=== PATIENT | female | born 1935 | race Caucasian/White ===

== ENCOUNTER 2017-08-08 09:23 | Emergency (ER) | payer MEDICARE, OTHER ==
[2016-12-15 14:54] VITALS: Ht 165.1 cm; Wt 61.7 kg
[~2017-08-08] VITALS: Ht 165.1 cm; Wt 61.7 kg
[~2017-08-08 09:23] MED LIST changes: -ABILIF5PT PO; -ACET-1966 PO; -ASPI81TA86 PO; -CEFU500T10 PO; -CYCL-277 PO; -METO25TA93 PO; -OMEP40CA48 PO; -SUMA50TA35 PO
[2017-08-08] MEDS ORDERED: NS(*) 0.9% 500 ML BAG 500 ML IV ONE (09:33)
[2017-08-08] MEDS ORDERED: NS(*) 0.9% 1000 ML BAG 1,000 ML IV ONE (09:33)
[2017-08-08] MEDS ORDERED: DILTIAZEM 5 MG/ML 5ML IVPUSH IVP ONE (09:35)
[2017-08-08] MEDS ORDERED: ASPIRIN 81 MG CHEW PO ONE (09:35)
[2017-08-08] MEDS ORDERED: ONDANSETRON 4 MG/2 ML VIAL IVP ONE (09:35)
[2017-08-08] MEDS ORDERED: ADENOSINE IV SOLN 3 MG/ML SYR IVP ONE ×2 (09:35)
--- NOTE | 2017-08-08 09:45 | ER Report ---
History and Physical Time Seen By MD: 09:12 HPI/ROS CC: Malaise with nausea HPI: 82-year-old female with past medical history of COPD, transient atrial fibrillation, mitral valve murmur secondary to rheumatic fever, intertrochanteric fracture right femur bronchitis, hip fracture, most UTIs. Patient comes to the emergency Department per EMS essentially a history of malaise. She has been exposed to influenza in her household. She is very pale and weak. His nauseated but no emesis. Generalized discomfort level is an 8 out of 10. She denies any chest pain chest pressure, shortness of breath no diaphoresis or palpitations. Activity makes it worse rest makes it better. Malaise is constant. While in the room patient went into SVT at V. tach it was hard to tell on the monitor. Patient received adenosine and converted to atrial fibrillation with RVR at a rate of 109. Patient was given Cardizem 20 mg IV. ROS: 12 point review of systems essentially negative other than what's mentioned in history of present illness. NURSES AND OLD MEDICAL RECORDS: Reviewed PMH: Reviewed SURGICAL HX: Reviewed FAMILY HX: Noncontributory SOCIAL HX: Patient denies smoking alcohol or illicit drugs. She was a home. VITAL SIGNS: Reviewed CONSTITUTIONAL: 82-year-old female in moderate to severe distress. PHYSICAL EXAM: HEENT: Pupils equal round reactive to light and accommodate, EOMI, tympanic membranes pearly white umbo present with good light reflex. Lips dry mucous membranes moist gums nonbleeding uvula midline and rises equally with phonation, oropharynx noninjected, teeth intact. NECK: Neck supple, thyroid not appreciated, anterior and posterior cervical lymphadenopathy not appreciated. Trachea midline and rises equally with phonation. CARDIAC: S1-S2 sixths systolic murmur 2nd intercostal space a sternal border decrescendo , irregularly irregular and tachycardic, no rubs or gallops. LUNGS: Lungs clear bilaterally posteriorly in all acuna. Decreased air movement. ABDOMEN: Abdomen soft, nondistended, bowel sounds active in all 4 quadrants, no bruits noted, no CVA tenderness. MUSCULOSKELETAL: Strength 5 out of 5 x 4 extremities, no deformities noted. NEUROLOGIC: Patient alert and oriented by 3 Allergies: Coded Allergies: propoxyphene (Verified Allergy, Mild, vomiting, 08/08/17) oxycodone (Verified Allergy, Unknown, 08/08/17) Uncoded Allergies: CLEANSERS (Allergy, Mild, 11/24/07) HAYFEVER (Allergy, Mild, UNKNOWN, 01/01/12) PERFUME (Allergy, Unknown, 03/09/14) Home Meds Active Scripts Ondansetron (ZOFRAN ODT) 4 Mg Tab.rapdis, 4 MG PO Q4-6H Y for NAUSEA/VOMITING, # 10 Prov:SHAWNEE SALINAS DO 03/25/17 Melatonin (MELATONIN) 5 Mg Tablet, 5 MG PO HS, #30 TAB Prov:VENTURA BARILLAS MD 04/03/16 Reported Medications Colestipol Hcl (COLESTIPOL HCL) 1 Gm Tablet, 1 GM PO PRN 12/15/16 Cyanocobalamin (Vitamin B-12) (Vitamin B12) 2,500 Mcg Tablet, 1 TAB PO QAM 12/14/16 Multivitamin (MULTIVITAMINS) 1 Each Tablet, 1 EACH PO DAILY 03/25/16 Fluticasone Prop 50 Mcg Ns (FLONASE 50 MCG NS) 16 Gm [place].susp, 2 SPRAYS NS QDAY for 30 Days, BOT 03/25/16 Flecainide Acetate (FLECAINIDE ACETATE) 100 Mg Tab, 100 MG PO QDAY for 30 Days, TAB 03/25/16 Alprazolam 0.5 Mg Tab (ALPRAZOLAM 0.5 MG TAB) 0.5 Mg Tablet, 0.5 MG PO QHS Y for ANXIETY for 30 Days, TAB 03/25/16 Amlodipine Besylate (AMLODIPINE BESYLATE) 5 Mg Tablet, 1 TAB PO DAILY, #30 03/25/16 Lisinopril (LISINOPRIL) 20 Mg Tablet, 1 TAB PO DAILY, #90 03/25/16 Cholecalciferol (Vitamin D3) (VITAMIN D3) 1,000 Unit Capsule, 5000 UNIT PO QAM, CAPSULE 10/19/14 Trazodone Hcl (TRAZODONE HCL) 100 Mg Tablet, 100 MG PO QPM 10/19/14 Quetiapine Fumarate (SEROQUEL) 50 Mg Tablet, 50 MG PO QPM 10/19/14 Discontinued Reported Medications Ranitidine Hcl (ZANTAC) 150 Mg Tablet, 150 MG PO DAILY, TAB 03/25/16 Hx Smoking: No Smoking Status: Never Smoker Exposure to Second Hand Smoke?: No Hx Substance Use Disorder: No Hx Alcohol Use: No Constitutional Vital Sign - Last 24 Hours 08/08/17 09:48 Temp 98.3 Pulse 140 Resp 22 Pulse Ox 84 O2 Delivery Room Air Medical Decision Making Data Points Result Diagram: 08/08/1755 08/08/17 0955 Laboratory Hematology Test 08/08/17 09:55 08/08/17 10:34 Red Blood Count 5.29 M/uL (4.17-5.56) Mean Corpuscular Volume 88.9 fL (80.0-96.0) Mean Corpuscular Hemoglobin 30.0 pg (26.0-33.0) Mean Corpuscular Hemoglobin Concent 33.8 g/dL (32.0-36.0) Red Cell Distribution Width 15.1 % (11.5-14.5) Mean Platelet Volume 7.1 fL (7.2-11.1) Neutrophils (%) (Auto) 81.5 % (39.4-72.5) Lymphocytes (%) (Auto) 10.2 % (17.6-49.6) Monocytes (%) (Auto) 7.5 % (4.1-12.4) Eosinophils (%) (Auto) 0.0 % (0.4-6.7) Basophils (%) (Auto) 0.8 % (0.3-1.4) Nucleated RBC Relative Count (auto) 0.0 /100WBC Neutrophils # (Auto) 7.5 K/uL (2.0-7.4) Lymphocytes # (Auto) 0.9 K/uL (1.3-3.6) Monocytes # (Auto) 0.7 K/uL (0.3-1.0) Eosinophils # (Auto) 0.0 K/uL (0.0-0.5) Basophils # (Auto) 0.1 K/uL (0.0-0.1) Nucleated RBC Absolute Count (auto) 0.00 K/uL Prothrombin Time 15.4 seconds (12.0-14.4) Prothromb Time International Ratio 1.21 Activated Partial Thromboplast Time 30 seconds (23-35) D-Dimer Quantitative (PE/DVT) 1.66 ug/ml (0-0.50) Sodium Level 138 mmol/L (137-145) Potassium Level 2.8 mmol/L (3.5-5.0) Chloride Level 97 mmol/L (98-107) Carbon Dioxide Level 22 mmol/L (22-31) Blood Urea Nitrogen 19 mg/dl (7-18) Creatinine 1.20 mg/dl (0.52-1.04) Glomerular Filtration Rate Calc 43.2 Random Glucose 146 mg/dl (75-110) Calcium Level 8.8 mg/dl (8.4-10.2) Magnesium Level 1.6 mg/dl (1.7-2.2) Total Bilirubin 0.8 mg/dl (0.2-1.3) Aspartate Amino Transf (AST/SGOT) 49 U/L (0-35) Alanine Aminotransferase (ALT/SGPT) 33 U/L (0-56) Alkaline Phosphatase 118 U/L (0-126) Troponin I 0.106 ng/ml B-Type Natriuretic Peptide 1250 pg/ml (0-100) Total Protein 7.6 gm/dl (6.3-8.2) Albumin 4.0 g/dl (3.5-5.0) Influenza Type A Antigen Negative (NEGATIVE) Influenza Type B Antigen Positive (NEGATIVE) Chemistry Test 08/08/17 09:55 08/08/17 10:34 White Blood Count 9.2 k/uL (4.5-11.0) Red Blood Count 5.29 M/uL (4.17-5.56) Hemoglobin 15.9 g/dL (12.0-16.0) Hematocrit 47.0 % (34.0-47.0) Mean Corpuscular Volume 88.9 fL (80.0-96.0) Mean Corpuscular Hemoglobin 30.0 pg (26.0-33.0) Mean Corpuscular Hemoglobin Concent 33.8 g/dL (32.0-36.0) Red Cell Distribution Width 15.1 % (11.5-14.5) Platelet Count 336 K/uL (150-450) Mean Platelet Volume 7.1 fL (7.2-11.1) Neutrophils (%) (Auto) 81.5 % (39.4-72.5) Lymphocytes (%) (Auto) 10.2 % (17.6-49.6) Monocytes (%) (Auto) 7.5 % (4.1-12.4) Eosinophils (%) (Auto) 0.0 % (0.4-6.7) Basophils (%) (Auto) 0.8 % (0.3-1.4) Nucleated RBC Relative Count (auto) 0.0 /100WBC Neutrophils # (Auto) 7.5 K/uL (2.0-7.4) Lymphocytes # (Auto) 0.9 K/uL (1.3-3.6) Monocytes # (Auto) 0.7 K/uL (0.3-1.0) Eosinophils # (Auto) 0.0 K/uL (0.0-0.5) Basophils # (Auto) 0.1 K/uL (0.0-0.1) Nucleated RBC Absolute Count (auto) 0.00 K/uL Prothrombin Time 15.4 seconds (12.0-14.4) Prothromb Time International Ratio 1.21 Activated Partial Thromboplast Time 30 seconds (23-35) D-Dimer Quantitative (PE/DVT) 1.66 ug/ml (0-0.50) Glomerular Filtration Rate Calc 43.2 Calcium Level 8.8 mg/dl (8.4-10.2) Magnesium Level 1.6 mg/dl (1.7-2.2) Total Bilirubin 0.8 mg/dl (0.2-1.3) Aspartate Amino Transf (AST/SGOT) 49 U/L (0-35) Alanine Aminotransferase (ALT/SGPT) 33 U/L (0-56) Alkaline Phosphatase 118 U/L (0-126) Troponin I 0.106 ng/ml B-Type Natriuretic Peptide 1250 pg/ml (0-100) Total Protein 7.6 gm/dl (6.3-8.2) Albumin 4.0 g/dl (3.5-5.0) Influenza Type A Antigen Negative (NEGATIVE) Influenza Type B Antigen Positive (NEGATIVE) Coagulation Test 08/08/17 09:55 Prothrombin Time 15.4 seconds Prothromb Time International Ratio 1.21 Activated Partial Thromboplast Time 30 seconds D-Dimer Quantitative (PE/DVT) 1.66 ug/ml EKG/Imaging EKG Interpretation 0931: Atrial fibrillation with RVR, left axis deviation, RSR or QR pattern in V1 possible right ventricular conduction delay. Ventricular rate 109 bpm,. Interval non-measurable, QRS duration 72 ms, QT 320 ms, QTc is 440 ms. Previous ECG shows sinus tachycardia with PACs left atrial enlargement R-wave progression ventricular rate 103 bpm, DC interval 180 ms, QRS duration 86 ms, QT 354 ms, QTC 463 ms. From 03/25/2017. Imaging Chest x-ray: IMPRESSION: 1. Patchy airspace consolidation now seen in the periphery of the right mid to upper lung field. This could represent an acute infiltrate given the clinical history however short-term interval follow-up imaging recommended to assure complete clearing. ED Course/Re-evaluation ED Course Patient received adenosine 6 mg followed by 12 mg. Patient into atrial fibrillation with RVR. Patient then received Cardizem 20 mg IV. Patient then has atrial fibrillation with RVR at a rate of 109. Patient received 2 g of magnesium IV piggyback. Patient received Zofran for her nausea. Labs been drawn. Chest x-ray showed a pneumonia. Patient received Zosyn. All labs have not yet been returned unknown if other area of infection i.e. when necessary therefore Zosyn was given as a broad-spectrum antibiotic. Potassium 2.840 mEq of [place] by mouth given. 1014: I then talked to the sloop captain at [facility] as the patient's sloop captain is at [facility]. Report given as above in history of present illness to Dr. Grant. 1020: Discussed the case with the hospitalist Dr. Marinelli. The bathing rather not accept her due to bed status. 1034: Dr. Adam, hospitalist at [facility] returned call. Report given as above in history of present illness and ED course. She accepts patient. Patient will be transferred to [facility]. It is not an option and patient is stable at this time. Blood pressure is 122/74, pulse 110, atrial fibrillation with RVR. 1048: Just before transfer patient's d-dimer came back as 1.6. We will receive Lovenox for anticipated pulmonary embolus and elevated troponin. This may be the cause of atrial fibrillation with RVR. Patient will be sent to the CT suite for PE protocol. 1115: Patient with influenza B. 1125: Patient just returned from CT suite. Patient be transferred to [facility]. Re-evaluation Medical decision-making includes but not excluded to fibrillation with RVR secondary to sepsis, urinary tract infection, pneumonia. Decision to Disposition Date: Aug 08, 2017 Decision to Disposition Time: 10:38 Depart Departure Latest Vital Signs Vital Signs Date Time Temp Pulse Resp B/P (MAP) Pulse Ox O2 Delivery O2 Flow Rate FiO2 08/08/17 09:48 98.3 140 22 84 Room Air Impression: Primary Impression: Pneumonia Additional Impression: Atrial fibrillation with RVR Condition: Improved Disposition: XFER TO [facility] Referrals: KATHLEEN JULES (PCP) Problem Qualifiers Primary Impression: Pneumonia Pneumonia type: due to unspecified organism Laterality: right Lung location : middle lobe of lung Qualified Codes: J18.1 - Lobar pneumonia, unspecified organism ANGELIQUE MILES MD Aug 08, 2017 09:45
--- NOTE | 2017-08-08 09:50 | EKG ---
[place]AC[place] [facility] [place] NAME: TREVOR OMRIN : [id number] MR: [id number] V: [id number] EXAM DATE: ORDERING PHYSICIAN: ANGELIQUE MLIES TECHNOLOGIST: Kalyan Test Reason : VTACH Blood Pressure : / mmHG Vent. Rate : 109 BPM Atrial Rate : 150 BPM P-R Int : 000 ms QRS Dur : 072 ms QT Int : 320 ms P-R-T Axes : 000 -43 037 degrees QTc Int : 430 ms Poor data quality, interpretation may be adversely affected Atrial fibrillation with rapid ventricular response with premature ventricular or aberrantly conducte d complexes Left axis deviation RSR' or QR pattern in V1 suggests right ventricular conduction delay Nonspecific ST abnormality , probably digitalis effect Abnormal ECG No previous ECGs available Confirmed by INNA STAUFFER ([id number]) on 08/08/2017 11:25:45 AM Referred By: Confirmed By:INNA STAUFFER
[2017-08-08] MEDS ORDERED: MAGNESIUM SUL* 2 GM/50 ML IVPB 50 ML IVPB ONE (10:00)
[2017-08-08 10:08] LABS: PLATELET COUNT, AUTOMATED 336 K/uL (150-450)
--- NOTE | 2017-08-08 10:18 | RADIOLOGY IMAGING REPORT ---
[place]AC[place] [facility] [place] NAME: Meri Velazquez : 1935 MR: [id number] V: [id number] EXAM DATE: ORDERING PHYSICIAN: ANGELIQUE MILES TECHNOLOGIST: Location: [facility] [place] Patient: Meri Velazquez : 1935 Visit/Account:[id number] Date of Sevice: 08/08/2017 Exam type: CHEST SINGLE AP History: Chest Pain Comparison: March 25, 2017. Findings: There is now a patchy area of dense airspace consolidation in the periphery of the right mid to upper lung field. The left lung is well aerated. There is no evidence of pleural effusions or overt pulm onary edema. Hilar prominence appears similar to the prior study. The cardiac silhouette appears mi ldly enlarged but unchanged. IMPRESSION: 1. Patchy airspace consolidation now seen in the periphery of the right mid to upper lung field. Th is could represent an acute infiltrate given the clinical history however short-term interval follow- up imaging recommended to assure complete clearing. There is hilar prominence bilaterally although similar to the prior study. Mild cardiomegaly unchanged Report Dictated By: Virginia Richter MD at 08/08/2017 10:10 AM Report E-Signed By: Virginia Richter MD at 08/08/2017 10:13 AM WSN:[email or web address]
[2017-08-08 10:20] LABS: INR 1.21
[2017-08-08] MEDS ORDERED: POTASSIUM CHL 20 MEQ TABCR PO ONE (10:20)
[2017-08-08] MEDS ORDERED: PIPERACILLIN/TAZO*3.375GM VIAL 3.375 GM in NS(*) 0.9% 100 ML ADDVANT BAG 100 ML IVPB ONE (10:30)
[2017-08-08] MEDS ORDERED: ENOXAPARIN 100 MG/ML SYR SC SCH (11:00)
[2017-08-08 11:05] VITALS: BP 112/71
[2017-08-08] MEDS ORDERED: NS 0.9% 50 ML VIAL 50 ML ONE ×2 (11:07)
[2017-08-08] MEDS ORDERED: IOPAMIDOL 76% 75 ML INFUS BTL 75 ML ONE (11:07)
--- NOTE | 2017-08-08 11:56 | RADIOLOGY IMAGING REPORT ---
FACILITY: [facility] PATIENT NAME: Meri Velazquez : 1935 MR: [id number] V: [id number] EXAM DATE: ORDERING PHYSICIAN: ANGELIQUE MILES TECHNOLOGIST: Location[place] [facility] [place] Patient: Meri Velazquez : 1935 Visit/Account:[id number] Date of Sevice: 08/08/2017 CTA CHEST WW/O CNTR (PULM ANG) HISTORY: cp ADDITIONAL HISTORY: None. TECHNIQUE: CTA chest with intravenous contrast. Axial imaging acquired following administration of IV contrast timed for maximum opacification of the pulmonary arterial vasculature. Slab 3-D MIP john nstructed images were also created for further evaluation and interpretation. Reconstruction of the s [facility] data set includes multiplanar 2-D in the sagittal and coronal planes and 3-D reconstructed marya nal slab MIP series. 3-D images were created by the technologist. Dose Lowering Technique One of the following dose optimization techniques was utilized in the performance of this exam: Autom ated exposure control; adjustment of the mA and/or kV according to the patient's size; or use of an i terative reconstruction technique. Specific details can be referenced in the facility's radiology C T exam operational policy. CONTRAST: 75 mL Isovue-370 COMPARISON: CT chest July 09, 2011 FINDINGS: Lungs/pleura: There is now dense airspace consolidation with air bronchograms irregular margins in t he posterior lateral aspect of the right upper lobe. There is a 4 mm nodule just anterior and inferi or to this consolidation best seen on image 45 of series 5. Chronic linear scarring versus atelectasis in the posterior inferior lingula appears unchanged.. Chr onic wedge-shaped consolidation in the medial inferior right middle lobe appears unchanged. Heart/vessels: There is no evidence of pulmonary emboli. There is mild aneurysmal dilatation of the ascending thoracic aorta measuring 4.2 cm in AP dimension and is increased when compared the prior s tudy. This mild aneurysmal dilatation of the descending thoracic aorta measuring up to 3.1 cm also s lightly increased. There is prominence of the central pulmonary arteries which can be seen with pulm onary arterial hypertension. There are coronary artery calcifications Mediastinum/lymph nodes: There are enlarged pretracheal lymph nodes not present previously. A repre sentative lymph node measures 1.9 x 1.3 cm. Visualized upper abdomen: Previous seen noted cyst in the dome of the liver has increased in size fr om 4.7 cm to 7.9 cm. Small peritoneal calcifications appear similar to the prior study Bones/soft tissues: There are spondylotic changes of the thoracic spine. Schmorl's nodes are noted at multiple levels Additional findings: None IMPRESSION: No evidence of pulmonary emboli. There is mild aneurysmal dilatation of the ascending and descending thoracic aorta slightly increased when compared the prior study Problem's of the central pulmonary arteries which can be seen with pulmonary arterial hypertension There is now an area of dense airspace consolidation with air bronchograms and irregular margins in t he posterior lateral aspect of the right upper lobe. There is a 4 mm nodule just anterior and inferi or to this consolidation. This could represent an infectious/inflammatory process although neoplasti c process should be excluded. Also noted is an enlarged pretracheal lymph node which was not present previously. There are chronic areas of scarring versus atelectasis in the right middle lobe and posterior inferio r lingula appearing similar to the prior study Previously noted cyst in the dome of the liver has increased in size from 4.7 cm to 7.9 cm Report Dictated By: Virginia Richter MD at 08/08/2017 11:36 AM Report E-Signed By: Virginia Richter MD at 08/08/2017 11:52 AM WSN:[email or web address]
[2017-08-08] MEDS ORDERED: LORazepam 2 MG/ML VIAL ONE (12:34)
== END 2017-08-08 12:40 | disposition short-term general hospital (02) ==
LOC: ER 09:25
DX: J18.1 Lobar pneumonia, unspecified organism (principal); I48.91 Unspecified atrial fibrillation; I47.2 Ventricular tachycardia; R07.89 Other chest pain
CPT/HCPCS: 36415; 71045; 71275; 83735; 83880; 84484; 85025; 85379; 85610; 85730; 87040; 87502; 93005; 96361; 96365; 96375; 99285; A9270; J0153; J1650; J2060; J2405; J2543; J3475; J3490; J7040; J7050; Q9967; 82040; 82247; 82310; 82374; 82435; 82565; 82947; 84075; 84132; 84155; 84295; 84450; 84460; 84520

== ENCOUNTER → 2017-08-08 | Outpatient (CLI) | payer MEDICARE, OTHER ==
[2016-12-15 14:54] VITALS: BMI 24.7
[~2017-08-08] MED LIST: ABILIF5PT PO; ACET-1966 PO; ALB17R INH; ALBU8.5H IH; ALP5 PO; ALPR-448 PO; ALPR-460 PO; AMLO-96 PO; ASPI-764 PO; ASPI81TA86 PO; AZIT-17 PO; B-12; BUTA1CAP36 PO; BUTA1CAP51 PO; CALC-649 PO; CEFU500T10 PO; CEPH-13 PO; CHOL100059 PO; CLAR-13 PO; CODE118S5 PO; COLE1TAB6 PO; CYAN1000 IM; CYAN25004 PO; CYCL-277 PO; DES100PT PO; DOCU-442 PO; DUL100/5PT INH; DULO30CA PO; DULO60CA51 PO; DULO60CA56 PO; DULO60CA7 PO; FLE100 PO; FLEC50TA16 PO; FLUT16SP19 NS; FLUT1DIS28 IH; GLUC-178 PO; HYDR-319 PO; IBU600 PO; LEV500 PO; LISI20TA29 PO; LOPE1LIQ49 PO; LOR5/325 PO; LOR7.5/325 PO; LOSA-54 PO; MELA1TAB15 PO; MELA5TAB6 PO; METHY10 PO; METO200T32 PO; METO25TA23 PO; METO25TA91 PO; METO25TA93 PO; METR70GE2 PV; MULT-820 PO; OLME1TAB51 PO; OMEP-218 PO; OMEP20CA68 PO; OMEP40CA48 PO; ONDA4TAB PO; OXYGENHOME INH; PHEN120S18 PO; POTA20PA10 PO; PRE20 PO; PRED20TA6 PO; PROM-110 PO; QUET50TA21 PO; RAN150 PO; RANI-324 PO; SUMA4PEN3 SQ; SUMA50TA34 PO; SUMA50TA35 PO; TEM15 PO; TRAZ-163 PO; TRAZ150T61 PO; TRAZ50 PO; WARF2.5T4 PO; [UNRECOGNIZED DRUG - CODE] PO; vitamins
== END ==
LOC: AMB 08:55
PROVIDERS: ATTEND Nurse Practitioner
DX: R53.1 Weakness (principal)
CPT/HCPCS: A0425; A0427

== ENCOUNTER → 2017-08-08 | Outpatient (CLI) | payer MEDICARE, OTHER ==
[2016-12-15 14:54] VITALS: BMI 24.7
== END ==
LOC: AMB 12:20
PROVIDERS: ATTEND Nurse Practitioner
DX: R53.1 Weakness (principal); I48.91 Unspecified atrial fibrillation; R79.89 Other specified abnormal findings of blood chemistry
CPT/HCPCS: A0425; A0426; A0888

== ENCOUNTER 2017-08-14 07:43 | Inpatient (IN) | payer MEDICARE, OTHER ==
[2016-12-15 14:54] VITALS: Ht 165.1 cm; Wt 64.9 kg
[~2017-08-14] VITALS: Ht 165.1 cm; Wt 64.9 kg
[2017-08-14 10:00] VITALS: BP 125/78
--- NOTE | 2017-08-14 10:35 | History & Physical ---
History of Present Illness Chief Complaint Weakness, need for rehabilitation. History of Present Illness The patient is an 82 year old female who presented to [facility] ER on 08/08. She was found to have pneumonia, atrial fibrillation with RVR, and elevated troponin. She was transferred to [facility] for further evaluation and treatment. She was found to have influenza B as well. She had severe hypokalemia/magnesemia. She had metabolic encephalopathy with severe hallucinations and confusion. She developed L greater trochanteric bursitis. Her troponin was elevated but felt to be non-NM troponin elevation due to her acute illness and a fib with RVR. She had an elevated d-dimer which was not evaluated as she was started on anticoagulation for the a fib. She improved with treatment of the above issues. She converted to NSR. She had generalized weakness and it was recommended to have ongoing rehabilitation. She was sent to a SNF in [place] initially, but the family preferred to have her in [place] at [facility] once a bed was available so she has been transferred to [facility] for ongoing rehabilitation. She is also completing a course of Ceftin 500mg bid for her pneumonia. History Problems: (1) PAROXYSMAL ATRIAL FIBRILLATION Status: Chronic (2) HTN (hypertension) Status: Chronic (3) Heart murmur after rheumatic heart disease Status: Chronic (4) History of femur fracture Status: Chronic (5) Cerebral meningioma Status: Chronic (6) Sleep apnea Status: Chronic (7) Depression Status: Chronic (8) Dyssomnia Status: Chronic (9) COPD (chronic obstructive pulmonary disease) Status: Chronic (10) Intertrochanteric fracture of right femur Status: Resolved (11) Diarrhea in adult patient Status: Chronic Home Meds Active Scripts Cefuroxime Axetil (CEFUROXIME) 500 Mg Tablet, 500 MG PO BID, #4 TAB Prov:VENTURA BARILLAS MD 08/14/17 Melatonin (MELATONIN) 5 Mg Tablet, 5 MG PO HS, #30 TAB Prov:VENTURA BARILLAS MD 04/03/16 Reported Medications Sumatriptan Succinate (SUMATRIPTAN SUCCINATE) 50 Mg Tablet, 50 MG PO ONCE Y for HEADACHE, #5 TAB May repeat dose 1 time after 2 hours if needed. Do not exceed 200mg in 24 hours. 08/14/17 Omeprazole (OMEPRAZOLE) 40 Mg Capsule.dr, 40 MG PO QDAY, CAP 08/14/17 Aripiprazole (ABILIFY) 5 Mg Tablet, 5 MG PO QDAY, #10 TAB 08/14/17 Cyclobenzaprine Hcl (CYCLOBENZAPRINE HCL) 5 Mg Tablet, 5-10 MG PO TID Y for SPASMS, #9 TAB 08/14/17 Acetaminophen (TYLENOL) 325 Mg Tablet, 1-2 TAB PO Q6H for pain or fever, TAB 08/14/17 Aspirin (ASPIRIN EC) 81 Mg Tablet.dr, 81 MG PO QDAY, TAB 08/14/17 Metoprolol Tartrate (METOPROLOL TARTRATE) 25 Mg Tablet, 25 MG PO BID, TAB 08/14/17 Colestipol Hcl (COLESTIPOL HCL) 1 Gm Tablet, 1 GM PO HS for diarrhea 12/15/16 Cyanocobalamin (Vitamin B-12) (Vitamin B12) 2,500 Mcg Tablet, 1 TAB PO QAM 12/14/16 Multivitamin (MULTIVITAMINS) 1 Each Tablet, 1 EACH PO DAILY 03/25/16 Cholecalciferol (Vitamin D3) (VITAMIN D3) 1,000 Unit Capsule, 5000 UNIT PO QAM, CAPSULE 10/19/14 Trazodone Hcl (TRAZODONE HCL) 100 Mg Tablet, 100 MG PO QPM 10/19/14 Quetiapine Fumarate (SEROQUEL) 50 Mg Tablet, 50 MG PO QPM 10/19/14 Discontinued Reported Medications Fluticasone Prop 50 Mcg Ns (FLONASE 50 MCG NS) 16 Gm [place].susp, 2 SPRAYS NS QDAY for 30 Days, BOT 03/25/16 Flecainide Acetate (FLECAINIDE ACETATE) 100 Mg Tab, 100 MG PO QDAY for 30 Days, TAB 03/25/16 Alprazolam 0.5 Mg Tab (ALPRAZOLAM 0.5 MG TAB) 0.5 Mg Tablet, 0.5 MG PO QHS Y for ANXIETY for 30 Days, TAB 03/25/16 Amlodipine Besylate (AMLODIPINE BESYLATE) 5 Mg Tablet, 1 TAB PO DAILY, #30 03/25/16 Lisinopril (LISINOPRIL) 20 Mg Tablet, 1 TAB PO DAILY, #90 03/25/16 Ranitidine Hcl (ZANTAC) 150 Mg Tablet, 150 MG PO DAILY, TAB 8/29/16 Discontinued Scripts Ondansetron (ZOFRAN ODT) 4 Mg Tab.rapdis, 4 MG PO Q4-6H Y for NAUSEA/VOMITING, # 10 Prov:SHAWNEE SALINAS DO 03/25/17 Allergies: Coded Allergies: propoxyphene (Verified Allergy, Mild, vomiting, 08/08/17) oxycodone (Verified Allergy, Unknown, 08/08/17) Uncoded Allergies: CLEANSERS (Allergy, Mild, 11/24/07) HAYFEVER (Allergy, Mild, UNKNOWN, 01/01/12) PERFUME (Allergy, Unknown, 03/09/14) Patient History: Colon cancer Other Social/Family Hx The patient is and lives in [place] with her . She is retired. Hx Smoking: No Smoking Status: Never Smoker Exposure to Second Hand Smoke?: No Caffeine Intake: Tea Caffeine/Cups Per Day: rarely Hx Alcohol Use: No Hx Substance Use Disorder: No Social Drug Use: Never History of IV Drug Use: No Review of Systems Constitutional: Weight Loss (Over several months due to poor appetite.), No Fever Neurological: Weakness Eyes: No Vision Change ENT: No Hearing Loss Cardiovascular: No Chest Pain Respiratory: No Shortness of Breath Gastrointestinal: Nausea (Initially with illness. Resolved now.) Genitourinary: No Dysuria Musculoskeletal: Pain (L greater trochanter. Has been improving.) Psychiatric: Depression Exam Vital Signs Vital Signs Date Time Temp Pulse Resp B/P (MAP) Pulse Ox O2 Delivery O2 Flow Rate FiO2 08/14/17 09:57 93 Nasal Cannula 3.0 General Appearance: Alert, Awake, No Acute Distress, Afebrile Neuro: No Gross deficits Eyes: PERRLA Cardiovascular: Regular Rate and Rhythm Respiratory: Clear to Auscultation GI: Abd Soft and Non-Tender Extremities: Warm, Perfused, Other (No edema.) Integumentary: Generalized Fragile Skin Psych: Appropriate Mood & Affect Assessment and Plan Problems: (1) INFLUENZA DUE TO OTH IDENT INFLUENZA VIRUS W OTH PNEUMONIA Status: Acute Assessment & Plan: She completed a course of Tamiflu at [facility]. Will continue Ceftin 500mg bid to complete a 10 day course of antibiotic. Will order a CBC. (2) PAROXYSMAL ATRIAL FIBRILLATION Status: Chronic Assessment & Plan: She has converted to NSR. Continue metoprolol and warfarin. Daily INR ordered. (3) Elevated d-dimer Status: Acute Assessment & Plan: No evaluation done. Started on warfarin for a fib. [place] to be due to acute illness/pneumonia. (4) Elevated troponin Status: Acute Assessment & Plan: [place] to be be non-NM troponin elevation due to issues described above. (5) Hypokalemia Status: Acute Assessment & Plan: Resolved. Will check a potassium and magnesium level. (6) Hypomagnesemia Status: Acute Assessment & Plan: See above. (7) HTN (hypertension) Status: Chronic Assessment & Plan: On metoprolol tartrate 25mg bid for BP and a fib. Lisinopril and amlodipine stopped. Watch blood pressures and restart if needed. (8) Greater trochanteric bursitis of left hip Status: Acute Assessment & Plan: She has been taking Tylenol and using [place] with good result. (9) Acute metabolic encephalopathy Status: Acute Assessment & Plan: Resolved. Due to acute illness. Time Spent on Plan of Care: < 30 min Copies to: KATHLEEN JULES MOLASSES COLORING OPERATOR Venous Thromboembolism VTE Risk Physician Assess for VTE Risk: Yes Patient's VTE Risk: Low VTE Diagnostic Test 2 Days Prior to Admit: No Antithrombotics Is Pt On Any Antithrombotics?: Yes (On warfarin.) VENTURA BARILLAS MD Aug 14, 2017 10:35
[2017-08-14] MEDS ORDERED: CYCLOBENZAPRINE HCL 10 MG TAB PO PRN (10:40)
[2017-08-14] MEDS ORDERED: METO25TA93 PO (10:57)
[2017-08-14] MEDS ORDERED: ACET-1966 PO (10:57)
[2017-08-14] MEDS ORDERED: ASPI81TA86 PO (10:57)
[2017-08-14] MEDS ORDERED: CEFU500T10 PO (10:57)
[2017-08-14] MEDS ORDERED: CYCL-277 PO (10:59)
[2017-08-14] MEDS ORDERED: ABILIF5PT PO (10:59)
[2017-08-14] MEDS ORDERED: OMEP40CA48 PO (11:00)
[2017-08-14] MEDS ORDERED: SUMA50TA35 PO (11:02)
[2017-08-14 11:04] LABS: PLATELET COUNT, AUTOMATED 296 K/uL (150-450)
[2017-08-14] MEDS ORDERED: ACETAMINOPHEN 325 MG TAB PO PRN (11:05)
[2017-08-14 11:15] LABS: INR 1.93
[2017-08-14] MEDS ORDERED: MENTHOL/METHYL SALI CREAM 57 GM 57 GM TUBE TP SCH (11:25)
[2017-08-14] MEDS: WARFARIN SOD 2 MG TAB PO SCH (12:21)
--- NOTE | 2017-08-14 13:14 | OT ECF NOTE ---
Type of Note: Initial Note Primary Medical Diagnosis: Generalized weakness s/p pneumonia, AFib with RVR, Influenza , Elevated troponin, Left greater trochanter bursitis, Metabolic encephalopathy with severe hallucinations Pt came to [facility] ER on 08/08/17 and was transferred to [facility]. She then went to a long -term rehab facility in [place] prior to bed availability at [facility]. Occupational Therapy Evaluation Date: 08/14/17 SUBJECTIVE: Prior Hospitalization: [facility] and long-term rehab ([place]) 08/08/17 thru Prior Level of Function: Independent with all ADLs/IADLs Prior Living Status: Multilevel house Spouse Living with family Community Services: No known needs Home Accessibility: Tub/shower combination Equipment Owned: Front wheeled walker Toilet riser Extended tub bench Medical Complications/Past Medical History: HTN, GERD, Hyperlipidemia, Arthritis, Depression, Baldwin's palsy, Hx of R gamma nail Spet. 2016 with stay on ECF Psychosocial Support: Spouse, Family in [place] Pain Scale (0-10): 10/10 with bed mobility. Emotional support/positioning offered. Nursing informed of pt's request for Tylenol. OBJECTIVE: Strength: MMT: Right Left Shoulder Flexion WFL WFL Elbow Flexion WFL WFL Wrist Extension WFL WFL Mortgage Loan Underwriter WFL WFL (5= normal, 4= good, 3= fair, 2= poor, 1= trace) ROM: Both upper extremities, WFL Functional Transfer: Assistive Device: Front wheeled walker, Gait belt Transfer Ability: CGA ADL: Upper body dressing: Assistive device: Upper body dressing ability: N/T Lower body dressing: Assistive device: Lower body dressing ability: N/T Toileting: Assistive device: Toileting ability: Minimum assistance Grooming/hygiene: Assistive device: Grooming ability: CGA Bathing: Assistive device: Bathing ability: N/T Standardized Assessment: Cash Index of Activities of Daily Livin20 at initial evaluation () ASSESSMENT: Meri presents to [facility] with increased weakness limiting ability to engage in ADLs/IADLs at [facility]. She will benefit from skilled OT services to improve activity tolerance and optimize (I) with ADLs. Problem List/Current Limitations: Pain Decreased activity tolerance Decreased strength Generalized weakness Poor safety awareness Short Term Goals: 1) Pt will be Mod (I) UB/LB dressing. 2) Pt will be SBA toileting. 3) Pt will be SBA grooming/hygiene. 4) Pt will be SBA tub transfer with bench. 5) Pt Cash Index of ADLs score will increase by 2 points. Recovery Operator Helper Goals: Return home with services Patient Goals: "Walk without assist" Rehabilitation Prognosis: Good Barriers to Discharge: Pain, Medical hx PLAN: The patient will benefit from skilled occupational therapy services 5 times per week for 2 weeks including: Ther ex ADL training Safety training Ther act IADL training Transfer training Adaptive equip training Bed mobility Energy conservation Thank you for this referral. If you have any questions, concerns, or comments about this report or plan, please contact me at . Ceci Cabrera MS, OTR/L Occupational Therapist [facility]IL[facility]
--- NOTE | 2017-08-14 13:48 | PT ECF NOTE ---
Type of Note: Initial Note Primary Medical Diagnosis: Weakness, influenza Physical Therapy Evaluation Date: 08/14/17 SUBJECTIVE: Prior Hospitalization: [facility] 08/08/17-08/13/17 Prior Level of Function: Jorge without an AD Prior Living Status: Spouse, Living with family (granddaughter and great grandchildren). Pt acts in caregiver role Community Services: Support adequate Home Accessibility: 2 Stairs with rails, All needs on one level Equipment Owned: Front wheeled walker, Rollator Medical Complications/Past Medical History: See EMR Psychosocial Support: Supportive daughter and son, pt's lives with pt , he does have dementia Pain Scale (0-10): 10/10 R) hip OBJECTIVE: Strength: Right Lower Extremity: DF: 4/5 Knee flexion: 4/5 Knee extension: 3+/5 Hip flexion: <3/5 Left Lower Extremity: DF: 4/5 Knee flexion: 4/5 Knee extension: 4/5 Hip flexion: 3/5 ROM: (please note any abnormalities) R) LE AROM limited by extreme R) hip pain Sensation: (please note any abnormalities) WNL Other Neuro findings: Non noted Bed Mobility: SBA with HOB elevated Transfers: CGA with RW Gait: CGA x20' with RW Stairs: NT Timed Up and Go (>12 seconds indicated increased risk for falls): 83 seconds ASSESSMENT: PT ECF eval complete. Pt's main complaint is R) hip pain, MD documented L) hip bursitis, she is reporting the pain at 10/10. Pt requires increased time and CGA for transfers and gait, and demonstrates decreased tolerance to functional mobility. She will benefit from skilled PT services in order to increase independence to allow for safe d/c to prior living setting. Problem List/Current Limitations: Pain Decreased activity khurram Decreased strength Decreased ROM Decreased balance Short Term Goals: 1: Pt to complete bed mobility with HOB flat and no railing, Jorge 2: Pt to complete transfers with Jorge and least restrictive AD 3: Pt to ambulate 250' with Jorge and least restrictive AD 4: Pt to asc/desc 2 platform stairs with SBA 5: Pt to demonstrate marked decrease in TUG time to indicate a decreased risk of falls. Aquatics Assistant Department Head Goals: Pt to d/c home with appropriate level of assistance Patient Goals: "I want to go home" Rehabilitation Prognosis: Good Barriers for Discharge: R) hip pain that is significantly limiting mobility at this time PLAN: The patient will benefit from skilled physical therapy services 5 times per week for 2 weeks including: Therapeutic Exercise Therapeutic Activities Transfer Training Gait Training Stair Training Manual Therapy Safety Training Neuromuscular Re-educ. Pt/Caregiver Training Bed Mobility Thank you for this referral. If you have any questions, concerns, or comments about this report or plan, please contact me at . Maxine Guillermo, PT, DPT MTDD
[2017-08-14] MEDS: APAP/HYDROCODONE 325/5 TAB PO PRN ×2 (14:13→20:16)
[2017-08-14] MEDS ORDERED: DULO60CA56 PO (14:29)
[2017-08-14 15:45] VITALS: BP 128/77
[2017-08-14] MEDS: MELATONIN 3 MG TAB PO SCH (20:15)
[2017-08-14] MEDS: CEFUROXIME AXETIL 250 MG TAB PO SCH (20:15)
[2017-08-14] MEDS: traZODone HCL 50 MG TAB PO SCH (20:16)
[2017-08-14] MEDS: QUEtiapine FUM 25 MG TAB PO SCH (20:16)
[2017-08-14] MEDS: METOPROLOL TART 50 MG TAB PO SCH (20:16)
[2017-08-14] MEDS: COLESTIPOL HCL 1 GM TAB PO SCH (21:00)
[2017-08-15 05:54] LABS: INR 2.19
[2017-08-15 08:30] VITALS: BP 155/70
[2017-08-15] MEDS: CHOLECALCIFEROL 1000 UNIT TAB PO SCH (09:24)
[2017-08-15] MEDS: METOPROLOL TART 50 MG TAB PO SCH ×2 (09:24→20:36)
[2017-08-15] MEDS: PANTOPRAZOLE SOD 40 MG TABEC PO SCH (09:24)
[2017-08-15] MEDS: MULTIVITAMINS TAB PO SCH (09:24)
[2017-08-15] MEDS: ARIPiprazole 10 MG TAB PO SCH (09:24)
[2017-08-15] MEDS: CYANOCOBALAMIN 1000 MCG TAB PO SCH (09:25)
[2017-08-15] MEDS: DULoxetine HCL 30 MG CAPCR PO SCH (09:25)
[2017-08-15] MEDS: CEFUROXIME AXETIL 250 MG TAB PO SCH ×2 (09:25→20:31)
[2017-08-15] MEDS: ASPIRIN 81 MG ENTERIC COATED PO SCH (09:25)
--- NOTE | 2017-08-15 10:31 | Medical Nutrition Therapy ---
Nutrition Anthropometrics Height (Inches): 65.00 Height (Calculated Centimeters: 165.553410 Weight (Pounds): 143 Weight (Calculated Kilograms): 64.864 BMI Calculated: 24.71 Kavin Nutrition Score: Probably Inadequate Kavin Nutrition Risk Score: 17 Dietary Referral Nutrition Risk Factors: Unplanned Loss >10lbs Nutrition Risk Comment: none Physical Findings Physical Appearance: BMI 23- WNR Skin Appearance Skin Appearance: Edema Edema Location Modifier: Both Edema Location: Ankle Type of Edema: Degree of Edema: Gastrointestinal Symptoms GI Symtoms: Tube Present: Bowel Sounds: Recent Bowel Pattern: Stool Characteristics: Loose Nutritional Diagnosis Nutritional Risk Acuity 3: Fair Appetite Nutritional Risk Acuity 4: %IBW 90-100% Past Medical History: HTN, sleep apnea, COPD, depression Nutritional Acuity: 3-Mild Energy Requirement: 1450 (M-StJ) Protein Requirement: 65 (1gm/kg) Fluid Requirement: 1625 (25 ml/kg) Diet Type: Diet as Tolerated ANGELIA/REG Nutrition Intervention: Cont diet as ordered, Encourage intake Drug: Warfarin Do Not Serve Any of the Follow: Broccoli, Brussel Sprouts, Spinach, [place] Lettuce, Cranberry Juice Nutrition Monitoring & Eval Nutrition Goals: Eat 75-100% Meal RD Patient Assessment Time: [address] Assessment Type: RD Assessment Patient Nutrition Acuity: 3-Mild Follow Up Date: Aug 19, 2017 Nutritional Comment: 08/15 Pt admited for rehab post influenza B. Pt eating 50-75% of meals. Pt reporting 10# wt loss. Pt stated wt of 147# in Er 03/25/17, stated wt 137# in ER 08/08/17. Current wt 143# in bedscale with non-pitting edema to feet. Pt on coumadin. Will avoid high Vit K foods and cranb batsheva. Will cont to monitor and encourage intake. AMBAR LOONEY Aug 15, 2017 10:31
[2017-08-15] MEDS: WARFARIN SOD 2 MG TAB PO SCH (13:00)
[2017-08-15] MEDS: APAP/HYDROCODONE 325/5 TAB PO PRN ×2 (13:56→20:38)
[2017-08-15 15:43] VITALS: BP 121/70
[2017-08-15] MEDS: MAGNESIUM OXIDE 400 MG TAB PO SCH (20:31)
[2017-08-15] MEDS: QUEtiapine FUM 25 MG TAB PO SCH (20:31)
[2017-08-15] MEDS: MELATONIN 3 MG TAB PO SCH (20:31)
[2017-08-15] MEDS: COLESTIPOL HCL 1 GM TAB PO SCH (20:31)
[2017-08-15] MEDS: traZODone HCL 50 MG TAB PO SCH (20:32)
[2017-08-16 07:09] LABS: INR 2.62
[2017-08-16 07:30] VITALS: BP 149/75
[2017-08-16] MEDS: METOPROLOL TART 50 MG TAB PO SCH ×2 (09:08→20:41)
[2017-08-16] MEDS: MAGNESIUM OXIDE 400 MG TAB PO SCH ×2 (09:08→20:42)
[2017-08-16] MEDS: DULoxetine HCL 30 MG CAPCR PO SCH (09:08)
[2017-08-16] MEDS: PANTOPRAZOLE SOD 40 MG TABEC PO SCH (09:08)
[2017-08-16] MEDS: ARIPiprazole 10 MG TAB PO SCH (09:09)
[2017-08-16] MEDS: CYANOCOBALAMIN 1000 MCG TAB PO SCH (09:09)
[2017-08-16] MEDS: CHOLECALCIFEROL 1000 UNIT TAB PO SCH (09:09)
[2017-08-16] MEDS: ASPIRIN 81 MG ENTERIC COATED PO SCH (09:09)
[2017-08-16] MEDS: MULTIVITAMINS TAB PO SCH (09:09)
[2017-08-16] MEDS: CEFUROXIME AXETIL 250 MG TAB PO SCH ×2 (09:09→20:42)
[2017-08-16] MEDS ORDERED: WARFARIN SOD 1 MG TAB PO SCH (13:00)
[2017-08-16 15:30] VITALS: BP 152/72
[2017-08-16] MEDS ORDERED: SALINE 0.65% NAS SPR 44 ML BTL PRN (19:00)
[2017-08-16] MEDS: MENTHOL/METHYL SALI CREAM 57 GM 57 GM TUBE TP SCH (19:00)
[2017-08-16] MEDS: MELATONIN 3 MG TAB PO SCH (20:40)
[2017-08-16] MEDS: QUEtiapine FUM 25 MG TAB PO SCH (20:41)
[2017-08-16] MEDS: APAP/HYDROCODONE 325/5 TAB PO PRN (20:42)
[2017-08-16] MEDS: COLESTIPOL HCL 1 GM TAB PO SCH (20:42)
[2017-08-16] MEDS: traZODone HCL 50 MG TAB PO SCH (20:44)
[2017-08-17 06:31] LABS: INR 2.48
[2017-08-17 07:50] VITALS: BP 139/63
[2017-08-17] MEDS: PANTOPRAZOLE SOD 40 MG TABEC PO SCH (09:02)
[2017-08-17] MEDS: ARIPiprazole 10 MG TAB PO SCH (09:03)
[2017-08-17] MEDS: METOPROLOL TART 50 MG TAB PO SCH ×2 (09:03→20:30)
[2017-08-17] MEDS: DULoxetine HCL 30 MG CAPCR PO SCH (09:03)
[2017-08-17] MEDS: ASPIRIN 81 MG ENTERIC COATED PO SCH (09:04)
[2017-08-17] MEDS: CHOLECALCIFEROL 1000 UNIT TAB PO SCH (09:04)
[2017-08-17] MEDS: MAGNESIUM OXIDE 400 MG TAB PO SCH ×2 (09:04→20:25)
[2017-08-17] MEDS: CYANOCOBALAMIN 1000 MCG TAB PO SCH (09:04)
[2017-08-17] MEDS: CEFUROXIME AXETIL 250 MG TAB PO SCH ×2 (09:04→20:25)
[2017-08-17] MEDS: MULTIVITAMINS TAB PO SCH (09:04)
[2017-08-17] MEDS ORDERED: WARFARIN SOD 1 MG TAB PO SCH (13:00)
[2017-08-17 17:25] VITALS: BP 152/85
[2017-08-17] MEDS: MENTHOL/METHYL SALI CREAM 57 GM 57 GM TUBE TP SCH (19:00)
[2017-08-17] MEDS: APAP/HYDROCODONE 325/5 TAB PO PRN ×2 (20:25→20:33)
[2017-08-17] MEDS: COLESTIPOL HCL 1 GM TAB PO SCH (20:25)
[2017-08-17] MEDS: MELATONIN 3 MG TAB PO SCH (20:25)
[2017-08-17] MEDS: traZODone HCL 50 MG TAB PO SCH (20:25)
[2017-08-17] MEDS: QUEtiapine FUM 25 MG TAB PO SCH (20:25)
[2017-08-18 06:17] LABS: INR 2.57
[2017-08-18 07:40] VITALS: BP 154/72
[2017-08-18] MEDS: ARIPiprazole 10 MG TAB PO SCH (09:10)
[2017-08-18] MEDS: PANTOPRAZOLE SOD 40 MG TABEC PO SCH (09:10)
[2017-08-18] MEDS: METOPROLOL TART 50 MG TAB PO SCH ×2 (09:10→21:29)
[2017-08-18] MEDS: CEFUROXIME AXETIL 250 MG TAB PO SCH ×2 (09:10→21:30)
[2017-08-18] MEDS: MAGNESIUM OXIDE 400 MG TAB PO SCH ×2 (09:11→21:29)
[2017-08-18] MEDS: MULTIVITAMINS TAB PO SCH (09:11)
[2017-08-18] MEDS: ASPIRIN 81 MG ENTERIC COATED PO SCH (09:11)
[2017-08-18] MEDS: CYANOCOBALAMIN 1000 MCG TAB PO SCH (09:11)
[2017-08-18] MEDS: CHOLECALCIFEROL 1000 UNIT TAB PO SCH (09:11)
[2017-08-18] MEDS: DULoxetine HCL 30 MG CAPCR PO SCH (09:11)
--- NOTE | 2017-08-18 12:40 | Medical Nutrition Therapy ---
Nutrition Anthropometrics Height (Inches): 65.00 Height (Calculated Centimeters: 165.271037 Weight (Pounds): 143 Weight (Calculated Kilograms): 64.864 BMI Calculated: 24.71 Kavin Nutrition Score: Probably Inadequate Kavin Nutrition Risk Score: 17 Dietary Referral Nutrition Risk Factors: Unplanned Loss >10lbs Nutrition Risk Comment: none Physical Findings Physical Appearance: BMI 23- WNR Skin Appearance Skin Appearance: Edema Edema Location Modifier: Both Edema Location: Ankle Type of Edema: Degree of Edema: Gastrointestinal Symptoms GI Symtoms: Tube Present: Bowel Sounds: Recent Bowel Pattern: Stool Characteristics: Loose Nutritional Diagnosis Nutritional Risk Acuity 3: Fair Appetite Nutritional Risk Acuity 4: %IBW 90-100% Past Medical History: HTN, sleep apnea, COPD, depression Nutritional Acuity: 3-Mild Energy Requirement: 1450 (M-StJ) Protein Requirement: 65 (1gm/kg) Fluid Requirement: 1625 (25 ml/kg) Diet Type: Diet as Tolerated ANGELIA/REG Nutrition Intervention: Cont diet as ordered, Encourage intake Drug: Warfarin Do Not Serve Any of the Follow: Broccoli, Brussel Sprouts, Spinach, [place] Lettuce, Cranberry Juice Additional Diet Restrictions: PLEASE ADD PROTEIN POWDER TO APPROPRIATE FOODS Diet Comment To RSA: PLEASE OFFER NUTR SUPPLEMENT Nutrition Monitoring & Eval RD Patient Assessment Time: [address] Assessment Type: RD Re-Assessment Patient Nutrition Acuity: 3-Mild Follow Up Date: Aug 26, 2017 Nutritional Comment: 08/15 Pt admited for rehab post influenza B. Pt eating 50-75% of meals. Pt reporting 10# wt loss. Pt stated wt of 147# in Er 03/25/17, stated wt 137# in ER 08/08/17. Current wt 143# in bedscale with non-pitting edema to feet. Pt on coumadin. Will avoid high Vit K foods and cranb batsheva. Will cont to monitor and encourage intake. 08/18 Pt continues on ANGELIA averaging 50-100% intakes of small portions. Has refused one meal. Notable labs include Na 135, BUN 23, Glu 73, total pro 4.4, and alb 2.1. Pt continues to have non-pitting edema to both ankles. No new wt available. Will offer nutrition supplement and continue to monitor. GRACIE SÁNCHEZ Aug 18, 2017 08:39
[2017-08-18] MEDS ORDERED: WARFARIN SOD 2 MG TAB PO SCH (13:00)
[2017-08-18 15:15] VITALS: BP 141/75
[2017-08-18] MEDS: MENTHOL/METHYL SALI CREAM 57 GM 57 GM TUBE TP SCH (19:00)
[2017-08-18] MEDS: COLESTIPOL HCL 1 GM TAB PO SCH (21:29)
[2017-08-18] MEDS: APAP/HYDROCODONE 325/5 TAB PO PRN (21:30)
[2017-08-18] MEDS: MELATONIN 3 MG TAB PO SCH (21:30)
[2017-08-18] MEDS: traZODone HCL 50 MG TAB PO SCH (21:30)
[2017-08-18] MEDS: QUEtiapine FUM 25 MG TAB PO SCH (21:30)
[2017-08-19 06:00] LABS: INR 2.58
[2017-08-19 08:30] VITALS: BP 149/70
[2017-08-19] MEDS: METOPROLOL TART 50 MG TAB PO SCH ×2 (08:52→20:27)
[2017-08-19] MEDS: ASPIRIN 81 MG ENTERIC COATED PO SCH (08:52)
[2017-08-19] MEDS: ARIPiprazole 10 MG TAB PO SCH (08:52)
[2017-08-19] MEDS: CHOLECALCIFEROL 1000 UNIT TAB PO SCH (08:52)
[2017-08-19] MEDS: CYANOCOBALAMIN 1000 MCG TAB PO SCH (08:52)
[2017-08-19] MEDS: DULoxetine HCL 30 MG CAPCR PO SCH (08:53)
[2017-08-19] MEDS: PANTOPRAZOLE SOD 40 MG TABEC PO SCH (08:53)
[2017-08-19] MEDS: MULTIVITAMINS TAB PO SCH (08:53)
[2017-08-19] MEDS: MAGNESIUM OXIDE 400 MG TAB PO SCH ×2 (08:53→20:27)
[2017-08-19] MEDS ORDERED: WARFARIN SOD 1 MG TAB PO SCH (13:00)
[2017-08-19] MEDS: APAP/HYDROCODONE 325/5 TAB PO PRN ×2 (14:46→21:24)
[2017-08-19 16:26] VITALS: BP 128/72
[2017-08-19] MEDS: MENTHOL/METHYL SALI CREAM 57 GM 57 GM TUBE TP SCH (18:22)
[2017-08-19] MEDS: traZODone HCL 50 MG TAB PO SCH (20:26)
[2017-08-19] MEDS: COLESTIPOL HCL 1 GM TAB PO SCH (20:26)
[2017-08-19] MEDS: MELATONIN 3 MG TAB PO SCH (20:27)
[2017-08-19] MEDS: QUEtiapine FUM 25 MG TAB PO SCH (20:27)
[2017-08-20 06:07] LABS: INR 2.67
[2017-08-20 08:19] VITALS: BP 108/43
[2017-08-20] MEDS: ASPIRIN 81 MG ENTERIC COATED PO SCH (09:00)
[2017-08-20] MEDS: ARIPiprazole 10 MG TAB PO SCH (09:57)
[2017-08-20] MEDS: DULoxetine HCL 30 MG CAPCR PO SCH (10:00)
[2017-08-20] MEDS: CHOLECALCIFEROL 1000 UNIT TAB PO SCH (10:00)
[2017-08-20] MEDS: MAGNESIUM OXIDE 400 MG TAB PO SCH ×2 (10:00→20:26)
[2017-08-20] MEDS: CYANOCOBALAMIN 1000 MCG TAB PO SCH (10:00)
[2017-08-20] MEDS: PANTOPRAZOLE SOD 40 MG TABEC PO SCH (10:00)
[2017-08-20] MEDS: METOPROLOL TART 50 MG TAB PO SCH ×2 (10:00→20:26)
[2017-08-20] MEDS: MULTIVITAMINS TAB PO SCH (10:00)
--- NOTE | 2017-08-20 10:18 | Hospitalist Progress Note ---
Subjective Progress Notes Subjective The patient denies new complaints. Physical Exam Vital Signs Date Time Temp Pulse Resp B/P (MAP) Pulse Ox O2 Delivery O2 Flow Rate FiO2 08/20/17 08:19 98.1 56 10 108/43 (64) 94 Nasal Cannula 2.0 General Appearance: Alert, Awake, No Acute Distress Neuro: No Gross deficits Eyes: PERRLA Cardiovascular: Regular Rate and Rhythm (With 3/6 JACQUELINE), Other (Trace edema L ankle.) Respiratory: Clear to Auscultation GI: Soft and Non-Tender Extremities: Warm, Perfused Psych: Appropriate Mood & Affect Result Diagram: 08/16/17 0635 Assessment and Plan Problems: (1) INFLUENZA DUE TO OTH IDENT INFLUENZA VIRUS W OT PNEUMONIA Status: Acute Assessment & Plan: She completed a course of Tamiflu at [facility]. She has also completed a 10 day course of antibiotic, Ceftin. (2) PAROXYSMAL ATRIAL FIBRILLATION Status: Chronic Assessment & Plan: She has converted to NSR. Continue metoprolol and warfarin. Daily INR ordered. She is therapeutic on her current dose of 2mg M-W-F and 1mg rest of the week. (3) Elevated d-dimer Status: Acute Assessment & Plan: No evaluation done. Started on warfarin for a fib. Crawford to be due to acute illness/pneumonia. (4) Elevated troponin Status: Acute Assessment & Plan: Crawford to be be non-GA troponin elevation due to issues described above. (5) Hypokalemia Status: Acute Assessment & Plan: Resolved. Will check a potassium and magnesium level. (6) Hypomagnesemia Status: Acute Assessment & Plan: See above. (7) HTN (hypertension) Status: Chronic Assessment & Plan: On metoprolol tartrate 25mg bid for BP and a fib. Lisinopril and amlodipine stopped. BPs have been reasonably well controlled. (8) Greater trochanteric bursitis of left hip Status: Acute Assessment & Plan: She has been taking Tylenol and using Bengay with good result. (9) Acute metabolic encephalopathy Status: Acute Assessment & Plan: Resolved. Due to acute illness. Time Spent on Plan of Care: < 30 min VENTURA BARILLAS MD Aug 20, 2017 10:18
[2017-08-20] MEDS ORDERED: WARFARIN SOD 2 MG TAB PO SCH (13:00)
[2017-08-20 15:40] VITALS: BP 125/74
[2017-08-20] MEDS: MENTHOL/METHYL SALI CREAM 57 GM 57 GM TUBE TP SCH (19:00)
[2017-08-20] MEDS: COLESTIPOL HCL 1 GM TAB PO SCH (20:25)
[2017-08-20] MEDS: MELATONIN 3 MG TAB PO SCH (20:26)
[2017-08-20] MEDS: QUEtiapine FUM 25 MG TAB PO SCH (20:26)
[2017-08-20] MEDS: traZODone HCL 50 MG TAB PO SCH (20:26)
[2017-08-20] MEDS: APAP/HYDROCODONE 325/5 TAB PO PRN (21:17)
[2017-08-21 05:56] LABS: PLATELET COUNT, AUTOMATED 515 K/uL (150-450)
[2017-08-21 06:04] LABS: INR 2.63
[2017-08-21 07:30] VITALS: BP 110/63
[2017-08-21] MEDS: DULoxetine HCL 30 MG CAPCR PO SCH (09:01)
[2017-08-21] MEDS: MAGNESIUM OXIDE 400 MG TAB PO SCH ×2 (09:01→20:58)
[2017-08-21] MEDS: CYANOCOBALAMIN 1000 MCG TAB PO SCH (09:01)
[2017-08-21] MEDS: MULTIVITAMINS TAB PO SCH (09:02)
[2017-08-21] MEDS: CHOLECALCIFEROL 1000 UNIT TAB PO SCH (09:02)
[2017-08-21] MEDS: METOPROLOL TART 50 MG TAB PO SCH ×2 (09:02→20:58)
[2017-08-21] MEDS: ASPIRIN 81 MG ENTERIC COATED PO SCH (09:02)
[2017-08-21] MEDS: PANTOPRAZOLE SOD 40 MG TABEC PO SCH (09:02)
[2017-08-21] MEDS: ARIPiprazole 10 MG TAB PO SCH (09:03)
--- NOTE | 2017-08-21 11:04 | OT ECF NOTE ---
Type of Note: Discharge Note Primary Medical Diagnosis: Generalized weakness s/p pneumonia, AFib with RVR, Influenza , Elevated troponin, Left greater trochanter bursitis, Metabolic encephalopathy with severe hallucinations Pt came to [facility] ER on 08/08/17 and was transferred to [facility]. She then went to a long -term rehab facility in [place] prior to bed availability at [facility]. Occupational Therapy Evaluation Date: 08/14/17 SUBJECTIVE: Prior Hospitalization: [facility] and long-term rehab ([place]) 08/08/17 thru Prior Level of Function: Independent with all ADLs/IADLs Prior Living Status: Multilevel house Spouse Living with family Community Services: No known needs Home Accessibility: Tub/shower combination Equipment Owned: Front wheeled walker Toilet riser Extended tub bench Medical Complications/Past Medical History: HTN, GERD, Hyperlipidemia, Arthritis, Depression, Baldwin's palsy, Hx of R gamma nail Spet. 2016 with stay on ECF Psychosocial Support: Spouse, Family in [place] Pain Scale (0-10): 10/10 with bed mobility. Emotional support/positioning offered. Nursing informed of pt's request for Tylenol. OBJECTIVE: Strength: MMT: Right Left Shoulder Flexion WFL WFL Elbow Flexion WFL WFL Wrist Extension WFL WFL Implementation Consultant WFL WFL (5= normal, 4= good, 3= fair, 2= poor, 1= trace) ROM: Both upper extremities, WFL Functional Transfer: Assistive Device: Front wheeled walker, Gait belt Transfer Ability: SBA ADL: Upper body dressing: Assistive device: None Upper body dressing ability: Independent Lower body dressing: Assistive device: None Lower body dressing ability: Independent Toileting: Assistive device: Raised toilet seat Toileting ability: Modified Independent Grooming/hygiene: Assistive device: Standing Grooming ability: Independent Bathing: Assistive device: Extended tub transfer bench. Bathing ability: Mod (I) tub transfer with extended tub bench Standardized Assessment: Cash Index of Activities of Daily Livin/20 at initial evaluation (). 20/20 at discharge date (08/21/17). ASSESSMENT: Meri presented to [facility] with increased weakness limiting ability to engage in ADLs/IADLs at [facility]. She has improved activity tolerance and independence with ADLs. All OT goals met. Pt presenting with no further questions/concerns in regards to discharge home tomorrow. Problem List/Current Limitations: Pain Decreased activity tolerance Decreased strength Generalized weakness Poor safety awareness Short Term Goals: 1) Pt will be Mod (I) UB/LB dressing. GOAL MET. 2) Pt will be SBA toileting. GOAL MET. 3) Pt will be SBA grooming/hygiene. GOAL MET. 4) Pt will be SBA tub transfer with bench. GOAL MET. 5) Pt Cash Index of ADLs score will increase by 2 points. GOAL MET. Auto Wash Buffer Goals: Return home with services Patient Goals: "Walk without assist" Rehabilitation Prognosis: Good Barriers to Discharge: Pain, Medical hx PLAN: The patient will discharge home with assist from son (Maciej) for IADLs and home health services. Thank you for this referral. If you have any questions, concerns, or comments about this report or plan, please contact me at . Ceci Cabrera MS, OTR/L Occupational Therapist [facility]IL[facility]
[2017-08-21] MEDS ORDERED: WARFARIN SOD 1 MG TAB PO SCH (13:00)
--- NOTE | 2017-08-21 13:30 | PT ECF NOTE ---
Type of Note: Discharge Summary Primary Medical Diagnosis: Weakness, influenza Physical Therapy Discharge Date: 08/21/17 SUBJECTIVE: Prior Hospitalization: [facility] 08/08/17-08/13/17 Prior Level of Function: Jorge without an AD Prior Living Status: Spouse, Living with family (granddaughter and great grandchildren). Pt acts in caregiver role Community Services: Support adequate Home Accessibility: 2 Stairs with rails, All needs on one level Equipment Owned: Front wheeled walker, Rollator Medical Complications/Past Medical History: See EMR Psychosocial Support: Supportive daughter and son, pt's lives with pt , he does have dementia Pain Scale (0-10): 0/10 OBJECTIVE: Strength: Right Lower Extremity: DF: 4/5 Knee flexion: 4/5 Knee extension: 4/5 Hip flexion: 3+/5 Left Lower Extremity: DF: 4/5 Knee flexion: 4/5 Knee extension: 4/5 Hip flexion: 3+/5 ROM: WFL Sensation: WNL Other Neuro findings: Non noted Bed Mobility: Jorge Transfers: Jorge with RW Gait: Jorge x350' with RW Stairs: x2 stairs with SBA Timed Up and Go (>12 seconds indicated increased risk for falls): 17 seconds ASSESSMENT: Meri demonstrates increased safety with all functional mobility and decreased need of assistance from others. She is safe to d.c home with assistance from her son and [facility] services. Problem List/Current Limitations: Decreased activity khurram Short Term Goals: (all goals met) 1: Pt to complete bed mobility with HOB flat and no railing, Jorge 2: Pt to complete transfers with Jorge and least restrictive AD 3: Pt to ambulate 250' with Jorge and least restrictive AD 4: Pt to asc/desc 2 platform stairs with SBA 5: Pt to demonstrate marked decrease in TUG time to indicate a decreased risk of falls. Retirement Goals: Pt to d/c home with appropriate level of assistance Patient Goals: "I want to go home" Rehabilitation Prognosis: Good PLAN: The patient will discharge home with assistance from son and [facility] services Thank you for this referral. If you have any questions, concerns, or comments about this report or plan, please contact me at . Maxine Guillermo, PT, DPT MTDD
[2017-08-21] MEDS ORDERED: LOR5/325 PO (15:10)
[2017-08-21] MEDS ORDERED: MAGN400T4 PO (15:10)
--- NOTE | 2017-08-21 15:22 | Hospitalist Depart ---
Discharge Summary Reason for Hosp/Final Diag: (1) INFLUENZA DUE TO OTH IDENT INFLUENZA VIRUS W OTH PNEUMONIA Status: Acute Hospital Course & Plan: She completed a course of Tamiflu at [facility]. She has also completed a 10 day course of antibiotic, Ceftin. (2) PAROXYSMAL ATRIAL FIBRILLATION Status: Chronic Hospital Course & Plan: She did convert to NSR. She was continued on metoprolol and warfarin. She remained therapeutic on a dose of 2mg M-W-F and 1mg rest of the week. She will have an INR on August 25, with results to [facility]. (3) Elevated d-dimer Status: Acute Hospital Course & Plan: The patient had an elevated d-dimer at [facility]. No evaluation was done. She was started on warfarin for atrial fibrillation. Per the discharge summary from [facility], the elevated d-dimer was felt to be due to acute illness/pneumonia. (4) Elevated troponin Status: Acute Hospital Course & Plan: The patient had an elevated troponin on admission to [facility]. This was felt to be non-SC troponin elevation due to issues described above. (5) Hypokalemia Status: Acute Hospital Course & Plan: The patient had significant hypokalemia on admission to [facility]. Her potassium and magnesium were replaced and her level normalized. (6) Hypomagnesemia Status: Acute Hospital Course & Plan: See above. (7) HTN (hypertension) Status: Chronic Hospital Course & Plan: The patient was started on metoprolol tartrate 25mg bid for BP and atrial fibrillation. Lisinopril and amlodipine were stopped. BPs were reasonably well controlled during her stay on ECF. (8) Greater trochanteric bursitis of left hip Status: Acute Hospital Course & Plan: The patient developed greater trochanteric bursitis on the left. She used Tylenol and Bengay with good result. (9) Acute metabolic encephalopathy Status: Acute Hospital Course & Plan: The patient had acute metabolic encephalopathy while at [facility]. This resolved. She had no issues during her stay on ECF. Departure Weight (Pounds): 143 Weight (Ounces): 2.0 Result Diagram: 08/21/1754708/21/17547 Item Value Date Time Magnesium Level 1.9 mg/dl 08/21/17547 Calcium Level 8.6 mg/dl 08/21/17547 Condition: Improved Discharge: Home, Home Health PT/OT Follow Up For: PT For Strengthening, OT For ADL's Home Health RN Follow Up For: Nursing Assessment Home Health PANTRY ATTENDANT Follow Up For: ADL Assistance Discharge Code Status: Full Code Time Spent: < 30 min Discharge Instructions Home Meds Active Scripts Cefuroxime Axetil (CEFUROXIME) 500 Mg Tablet, 500 MG PO BID, #4 TAB Prov:VENTURA BARILLAS MD 08/14/17 Melatonin (MELATONIN) 5 Mg Tablet, 5 MG PO HS, #30 TAB Prov:VENTURA BARILLAS MD 04/03/16 Reported Medications Duloxetine Hcl (CYMBALTA) 60 Mg Capsule.dr, 60 MG PO QDAY, #5 CAP 08/14/17 Sumatriptan Succinate (SUMATRIPTAN SUCCINATE) 50 Mg Tablet, 50 MG PO ONCE Y for HEADACHE, #5 TAB May repeat dose 1 time after 2 hours if needed. Do not exceed 200mg in 24 hours. 08/14/17 Omeprazole (OMEPRAZOLE) 40 Mg Capsule.dr, 40 MG PO QDAY, CAP 08/14/17 Aripiprazole (ABILIFY) 5 Mg Tablet, 5 MG PO QDAY, #10 TAB 08/14/17 Cyclobenzaprine Hcl (CYCLOBENZAPRINE HCL) 5 Mg Tablet, 5-10 MG PO TID Y for SPASMS, #9 TAB 08/14/17 Acetaminophen (TYLENOL) 325 Mg Tablet, 1-2 TAB PO Q6H for pain or fever, TAB 08/14/17 Aspirin (ASPIRIN EC) 81 Mg Tablet.dr, 81 MG PO QDAY, TAB 08/14/17 Metoprolol Tartrate (METOPROLOL TARTRATE) 25 Mg Tablet, 25 MG PO BID, TAB 08/14/17 Colestipol Hcl (COLESTIPOL HCL) 1 Gm Tablet, 1 GM PO HS for diarrhea 12/15/16 Cyanocobalamin (Vitamin B-12) (Vitamin B12) 2,500 Mcg Tablet, 1 TAB PO QAM 12/14/16 Multivitamin (MULTIVITAMINS) 1 Each Tablet, 1 EACH PO DAILY 03/25/16 Cholecalciferol (Vitamin D3) (VITAMIN D3) 1,000 Unit Capsule, 5000 UNIT PO QAM, CAPSULE 10/19/14 Trazodone Hcl (TRAZODONE HCL) 100 Mg Tablet, 100 MG PO QPM 10/19/14 Quetiapine Fumarate (SEROQUEL) 50 Mg Tablet, 50 MG PO QPM 10/19/14 Discontinued Reported Medications Fluticasone Prop 50 Mcg Ns (FLONASE 50 MCG NS) 16 Gm [place].susp, 2 SPRAYS NS QDAY for 30 Days, BOT 03/25/16 Flecainide Acetate (FLECAINIDE ACETATE) 100 Mg Tab, 100 MG PO QDAY for 30 Days, TAB 03/25/16 Alprazolam 0.5 Mg Tab (ALPRAZOLAM 0.5 MG TAB) 0.5 Mg Tablet, 0.5 MG PO QHS Y for ANXIETY for 30 Days, TAB 03/25/16 Amlodipine Besylate (AMLODIPINE BESYLATE) 5 Mg Tablet, 1 TAB PO DAILY, #30 03/25/16 Lisinopril (LISINOPRIL) 20 Mg Tablet, 1 TAB PO DAILY, #90 03/25/16 Discontinued Scripts Ondansetron (ZOFRAN ODT) 4 Mg Tab.rapdis, 4 MG PO Q4-6H Y for NAUSEA/VOMITING, # 10 Prov:SHAWNEE SALINAS DO 03/25/17 Follow up Referrals: Family Practice - In One Week with [facility] Diet: Regular Activity: As Tolerated Special Instructions: 1. The patient is to follow up with [facility] Linares, in one week. 2. She is to have an INR drawn August 25, with results to [facility] L[facility]. Home Health can draw blood for the INR. Copies to: KATHLEEN JULES Venous Thromboembolism Antithrombotics Is Pt On Any Antithrombotics?: Yes (On warfarin.) [id number] Certification Face to Face Home Health Certification Institutional Provider conducted the [id number] encounter. Electronic Undersigning Physician Certifies Home Health. I certify that the patient has been under my care and that I had a [id number] encounter that meets the physician [id number] encounter requirements with this patient. This patient is home-bound due to safety issues and continues to require assistance with ADL's. I certify that based on my findings, that Nursing, Aides and the following Home Health services are medically necessary: PT, OT. Medical Necessity: Nursing, Rehab Date Face to Face Conducted: Aug 20, 2017 Problem Qualifiers (1) HTN (hypertension): Hypertension type: essential hypertension Qualified Codes: I10 - Essential ( primary) hypertension VENTURA BARILLAS MD Aug 21, 2017 15:22
[2017-08-21 16:00] VITALS: BP 129/81
[2017-08-21] MEDS: MENTHOL/METHYL SALI CREAM 57 GM 57 GM TUBE TP SCH (18:40)
[2017-08-21] MEDS: MELATONIN 3 MG TAB PO SCH (20:58)
[2017-08-21] MEDS: APAP/HYDROCODONE 325/5 TAB PO PRN (20:58)
[2017-08-21] MEDS: COLESTIPOL HCL 1 GM TAB PO SCH (20:58)
[2017-08-21] MEDS: traZODone HCL 50 MG TAB PO SCH (20:58)
[2017-08-21] MEDS: QUEtiapine FUM 25 MG TAB PO SCH (20:59)
[2017-08-22 05:47] LABS: INR 2.37
[2017-08-22] MEDS ORDERED: LOR5/325 PO ×2 (07:05→07:06)
[2017-08-22] MEDS ORDERED: WARF-18 PO ×2 (07:11→07:15)
[2017-08-22] MEDS ORDERED: WARF1TAB56 PO (07:29)
[2017-08-22 07:30] VITALS: BP 143/55
[2017-08-22] MEDS: ASPIRIN 81 MG ENTERIC COATED PO SCH (09:36)
[2017-08-22] MEDS: MAGNESIUM OXIDE 400 MG TAB PO SCH (09:36)
[2017-08-22] MEDS: PANTOPRAZOLE SOD 40 MG TABEC PO SCH (09:36)
[2017-08-22] MEDS: CYANOCOBALAMIN 1000 MCG TAB PO SCH (09:36)
[2017-08-22] MEDS: DULoxetine HCL 30 MG CAPCR PO SCH (09:36)
[2017-08-22] MEDS: CHOLECALCIFEROL 1000 UNIT TAB PO SCH (09:37)
[2017-08-22] MEDS: MULTIVITAMINS TAB PO SCH (09:37)
[2017-08-22] MEDS: METOPROLOL TART 50 MG TAB PO SCH (09:37)
[2017-08-22] MEDS: ARIPiprazole 10 MG TAB PO SCH (09:37)
[2017-08-22] MEDS ORDERED: WARFARIN SOD 2 MG TAB PO SCH (13:00)
== END 2017-08-22 10:40 | disposition home health service (06) | DRG 194 ==
LOC: OBSVTOIN 09:26 → ECF 09:26
PROVIDERS: ADMIT Family Medicine; ATTEND Family Medicine
DX: J10.08 Influenza due to other identified influenza virus with other specified pneumonia (principal); E44.1 Mild protein-calorie malnutrition; I48.0 Paroxysmal atrial fibrillation; E83.42 Hypomagnesemia; I10 Essential (primary) hypertension; M70.62 Trochanteric bursitis, left hip; R01.1 Cardiac murmur, unspecified; D32.0 Benign neoplasm of cerebral meninges; G47.30 Sleep apnea, unspecified; F32.9 Major depressive disorder, single episode, unspecified; G47.9 Sleep disorder, unspecified; J44.9 Chronic obstructive pulmonary disease, unspecified; K52.9 Noninfective gastroenteritis and colitis, unspecified; R53.1 Weakness; Z88.5 Allergy status to narcotic agent; Z79.01 Long term (current) use of anticoagulants; Z88.8 Allergy status to other drugs, medicaments and biological substances; Z99.81 Dependence on supplemental oxygen; Z90.710 Acquired absence of both cervix and uterus; Z90.49 Acquired absence of other specified parts of digestive tract; Z87.891 Personal history of nicotine dependence; Z68.23 Body mass index [BMI] 23.0-23.9, adult
CPT/HCPCS: 36415; 82040; 82247; 82310; 82374; 82435; 82565; 82947; 83735; 84075; 84132; 84155; 84295; 84450; 84460; 84520; 85025; 85610; 97161; 97165

== ENCOUNTER → 2017-08-18 | Outpatient (CLI) | payer OTHER, MEDICARE ==
[2016-12-15 14:54] VITALS: BMI 24.7
[~2017-08-18] MED LIST changes: +ABILIF5PT PO; +ACET-1966 PO; +ASPI81TA86 PO; +CEFU500T10 PO; +CYCL-277 PO; +MAGN400T4 PO; +METO25TA93 PO; +OMEP40CA48 PO; +SUMA50TA35 PO; +WARF-18 PO; +WARF1TAB56 PO
== END ==
LOC: LAB 14:10
PROVIDERS: ATTEND Emergency Medicine
DX: Z77.21 Contact with and (suspected) exposure to potentially hazardous body fluids (principal)
CPT/HCPCS: 36415; 86703; 86803; 87340

== ENCOUNTER → 2017-08-27 | Outpatient (CLI) | payer MEDICARE, OTHER ==
[2016-12-15 14:54] VITALS: BMI 24.7
--- NOTE | 2017-08-27 10:09 | RADIOLOGY IMAGING REPORT ---
FACILITY: [facility] - [place] PATIENT NAME: Meri Velazquez : 1935 MR: [id number] V: [id number] EXAM DATE: ORDERING PHYSICIAN: KATHLEEN JULES TECHNOLOGIST: Location: [facility] [place] Patient: Meri Velazquez : 1935 Visit/Account:[id number] Date of Sevice: 08/27/2017 HIP LEFT Indication: Fall and left hip two weeks ago Comparison: X-ray examination of the abdomen including the left hip March 2016 Findings: Stable operative changes status post ORIF right hip. Pubic rami are intact. Degenerative changes ar e noted to be stable within the SI joint and pubic symphysis. There is degenerative narrowing with i ncreased subchondral sclerosis involving the left hip. No fracture or destructive osseous process no enthesopathy. IMPRESSION: 1. Stable osteoarthritic degenerative change left hip without acute finding Report Dictated By: Jonas Otto MD at 08/27/2017 10:03 AM Report E-Signed By: Jonas Otto MD at 08/27/2017 10:05 AM WSN:[id number]
== END ==
LOC: RAD 09:37
PROVIDERS: ATTEND Nurse Practitioner Family
DX: M16.12 Unilateral primary osteoarthritis, left hip (principal)

== ENCOUNTER → 2017-09-09 | Outpatient (CLI) | payer MEDICARE, OTHER ==
[2016-12-15 14:54] VITALS: BMI 24.7
[~2017-09-09] MED LIST changes: -WARF-18 PO; +WARF5TAB23 PO
--- NOTE | 2017-09-11 09:21 | RADIOLOGY IMAGING REPORT ---
FACILITY: [facility] - [place] PATIENT NAME: TREVOR MORIN : [id number] MR: [id number] V: [id number] EXAM DATE: ORDERING PHYSICIAN: KATHLEEN JULES TECHNOLOGIST: Karrie Meyer EXAMINATION:TWO-DIMENSIONAL ECHOCARDIOGRAPH REASON:AFIB/MURMUR/HTN 2D Measurements (normal values in centimeters) LV endLV endRV endVent.LV PostAorticLeftPercent DiastolicSystolicDiastolicSeptumWallRootAtriumShortening (3.5-5.7)(0.9-2.6)(0.6-1.1)(0.6-1.1)(2.0-3.7)(1.9-4.0)(25-35%) [id number]% STROKE VOLUME: 33ml ESTIMATED EJECTION FRACTION:61% PARASTERNAL LONG AXIS: Left ventricular systolic function appears to be within normal ranges. Left atrium appears to be mildly enlarged. Other chamber sizes appear to be normal. There is mild mitral annular calcification. The aortic valve also appears to be calcified & probably somewhat stenotic. PARASTERNAL SHORT AXIS: Overall left ventricular function appears to be normal. Patient appears to be in sinus rhythm with occasional premature atrial contraction. The aortic valve is not well seen but it has been noted on previous echoes that it is trileaflet in configuration. APICAL FOUR AND TWO CHAMBER: Left ventricular function again appears to be within normal ranges. Patient is in sinus rhythm with sinus arrhythmia. Color examination of the valves reveals some mitral insufficiency, tricuspid insufficiency, aortic & pulmonic insufficiency present. Tricuspid regurgitation Vmax measured 3.74m/sec. The aortic valve area is measured at 1.03cm with a mean pressure gradient across the valve of 8mm Hg & a dimensionless index of .5 indicating mild to borderline moderate aortic stenosis. There is calcification along valve. Mitral valve area is measured at a lower range of normal at 1.2cm. Mild amount of mitral insufficiency is noted. Left atrial volume is moderate to severely increased at 41ml/m2. Right atrial volume is mild to moderately increased at 34ml/m2. There does appear to be some turbulent flow through the aortic valve. Moderate amount of tricuspid insufficiency was noted. SUBCOSTAL VIEW: No pericardial effusion was noted. No atrioseptal or ventriculoseptal defects were appreciated. Some mitral annular calcification is also noted. There is an echogenic area on the anterior leaflet of the mitral valve probably calcification. It does not appear to be a vegetation. I cannot totally exclude a vegetation. Doppler examination of the mitral valve in diastole does reveal the A wave > E wave. IVC is normal in size. There is a large 6cm liver cyst noted. Cyst measures 6.59 x 5.78cm. OVERALL IMPRESSION: 1. Normal left ventricular ejection fraction of 61% with a Grade 1/4 decrease in diastolic function. 2. There is mild concentric left ventricular thickening but no evidence for any outflow tract obstruction. 3. Moderate to severe left atrial enlargement & mild to moderate enlargement of the right atrium. The ventricles appear to be normal in size. 4. Trileaflet aortic valve with a valve area measuring stenotic at 1.03cm but the mean pressure gradient across the valve is 8mm Hg & the dimensionless index is .5 indicating mild to borderline moderate aortic stenosis. 5. Mitral valve area is measured at a lower range than normal. There is some mitral annular calcification. There is also an echogenic area on the anterior leaflet of the mitral valve probably a calcification but I cannot totally exclude a vegetation. If clinically suspect a vegetation I would recommend other imaging such as a transesophageal echocardiograph. 6. A mild amount of aortic insufficiency & a trace amount of pulmonic insufficiency & a moderate amount of tricuspid insufficiency with estimated right ventricular systolic pressures of 59mm Hg which does include an estimated right atrial pressure of 3mm Hg indicating severe pulmonary hypertension & increased right ventricular systolic pressures. 7. Patient appears to be in sinus arrhythmia with occasional premature atrial contraction. 8. In comparison with examination done on 04/15/17, the aortic valve has gotten somewhat stenotic. The right ventricular systolic pressures are also significantly increased from 35mm Hg to 59mm Hg. Dictated by: Carol Lilly M.D. on 09/10/2017 at 8:54 Transcribed by: CLAY on 09/10/2017 at 14:11 Approved by: Carol Lilly M.D. on 09/11/2017 at 9:20 [facility]
== END ==
LOC: US 00:59
PROVIDERS: ATTEND Nurse Practitioner Family
DX: I50.30 Unspecified diastolic (congestive) heart failure (principal); R29.898 Other symptoms and signs involving the musculoskeletal system; I51.7 Cardiomegaly; I35.8 Other nonrheumatic aortic valve disorders; I25.10 Atherosclerotic heart disease of native coronary artery without angina pectoris; I37.1 Nonrheumatic pulmonary valve insufficiency; I27.20 Pulmonary hypertension, unspecified; I49.1 Atrial premature depolarization
CPT/HCPCS: 93306

== ENCOUNTER 2017-09-29 16:32 | Inpatient (IN) | payer MEDICARE, OTHER ==
[2016-12-15 14:54] VITALS: Wt 56.8 kg
[2017-09-29 16:55] VITALS: BP 181/142
[2017-09-29] MEDS ORDERED: NS(*) 0.9% 1000 ML BAG 1,000 ML IV PRN (17:30)
--- NOTE | 2017-09-29 17:46 | RADIOLOGY IMAGING REPORT ---
FACILITY: [facility] PATIENT NAME: Meri Velazquez : 1935 MR: [id number] V: [id number] EXAM DATE: ORDERING PHYSICIAN: INNA STAUFFER TECHNOLOGIST: Location: [facility] Patient: Meri Velazquez : 1935 Visit/Account:[id number] Date of Sevice: 09/29/2017 Exam type: CHEST PA AND LAT History: Fever and cough Comparison: August 08, 2017. Findings: Patchy airspace consolidation in the right midlung field appears slightly more prominent. There is n ow focal areas of airspace consolidation in the periphery of both lower lobes. The cardiac silhouett e is mildly enlarged. There is marked ectasia the thoracic aorta hilar prominence appears similar to the prior study. There are spondylotic changes of the thoracic spine IMPRESSION: 1. Patchy airspace consolidation in the right midlung field appears slightly more prominent. There are new focal areas of airspace consolidation in the periphery of both lower lobes. This may represe nt multifocal pneumonia. Continued surveillance recommended. Report Dictated By: Virginia Richter MD at 09/29/2017 5:40 PM Report E-Signed By: Virginia Richter MD at 09/29/2017 5:43 PM WSN:[email or web address]
[2017-09-29] MEDS ORDERED: LISI-362 PO (17:52)
--- NOTE | 2017-09-29 17:53 | RADIOLOGY IMAGING REPORT ---
FACILITY: [facility] PATIENT NAME: Meri Velazquez : 1935 MR: [id number] V: [id number] EXAM DATE: ORDERING PHYSICIAN: INNA STAUFFER TECHNOLOGIST: Location: [facility] Patient: Meri Velazquez : 1935 Visit/Account:[id number] Date of Sevice: 09/29/2017 EXAMINATION: Head CT without intravenous contrast HISTORY: Left-sided facial droop TECHNIQUE: Contiguous axial images were obtained from the skull base to the vertex without intraven ous contrast. Sagittal and coronal reformatted images are also submitted. Dose Lowering Technique One of the following dose optimization techniques was utilized in the performance of this exam: Autom ated exposure control; adjustment of the mA and/or kV according to the patient's size; or use of an i terative reconstruction technique. Specific details can be referenced in the facility's radiology C T exam operational policy. COMPARISON: March 24, 2016 FINDINGS: Brain volume: There Is mild diffuse central cortical atrophy not out of proportion for patient's age Ventricles: Within normal limits for patient's age Acute ischemic changes: None. Hemorrhage: None. 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 White matter: Normal. Vessels: Negative. Extra-axial: As above Calvarium / scalp: Negative. Skull base / visualized face: Negative. 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
[2017-09-29 18:05] LABS: PLATELET COUNT, AUTOMATED 303 K/uL (150-450)
[2017-09-29] MEDS ORDERED: ALBUTEROL 2.5 MG/3 ML NEB NEB PRN (18:45)
[2017-09-29] MEDS ORDERED: ACETAMINOPHEN 500 MG TAB PO PRN (18:45)
[2017-09-29 18:51] VITALS: BP 167/118
--- NOTE | 2017-09-29 19:06 | History & Physical ---
History of Present Illness Chief Complaint Weakness and fever History of Present Illness This patient presented to her primary care physician complaining of weakness and fever. She was noted to have a fever of 102 in the clinic. She also reports a cough, but no purulent sputum. She was diagnosed with influenza in July and was transferred to [facility] because she also had an elevated troponin at that time. She returned to our extended care facility after that admission, but was discharged from there on 08/22/17. History Problems: (1) Hip fracture Status: Chronic (2) Paroxysmal atrial fibrillation (3) Acute metabolic encephalopathy Status: Chronic (4) COPD (chronic obstructive pulmonary disease) Status: Chronic (5) Depression Status: Chronic (6) Cerebral meningioma Status: Chronic (7) Heart murmur after rheumatic heart disease Status: Chronic (8) Hx of cholecystectomy Status: Chronic (9) Hx of appendectomy Status: Chronic Home Meds Active Scripts Magnesium Oxide (MAG-OXIDE) 400 Mg Tablet, 400 MG PO BID, #60 TAB Prov:VENTURA BARILLAS MD 08/21/17 Melatonin (MELATONIN) 5 Mg Tablet, 5 MG PO HS, #30 TAB Prov:VENTURA BARILLAS MD 04/03/16 Reported Medications Lisinopril (LISINOPRIL) 10 Mg Tablet, 10 MG PO QDAY, TAB 09/29/17 Hydrocodone Bit/Acetaminophen (HYDROCODON-ACETAMINOPHEN 5-325) 1 Each Tablet, 1- 2 EACH PO Q6H for PAIN, #30 TAB 08/22/17 Duloxetine Hcl (CYMBALTA) 60 Mg Capsule.dr, 60 MG PO QDAY, #5 CAP 08/14/17 Sumatriptan Succinate (SUMATRIPTAN SUCCINATE) 50 Mg Tablet, 50 MG PO ONCE Y for HEADACHE, #5 TAB May repeat dose 1 time after 2 hours if needed. Do not exceed 200mg in 24 hours. 08/14/17 Omeprazole (OMEPRAZOLE) 40 Mg Capsule.dr, 40 MG PO QDAY Y for REFLUX, CAP 08/14/17 Aripiprazole (ABILIFY) 5 Mg Tablet, 5 MG PO QDAY, #10 TAB 08/14/17 Metoprolol Tartrate (METOPROLOL TARTRATE) 25 Mg Tablet, 25 MG PO BID, TAB 08/14/17 Colestipol Hcl (COLESTIPOL HCL) 1 Gm Tablet, 1 GM PO HS for diarrhea 12/15/16 Cyanocobalamin (Vitamin B-12) (Vitamin B12) 2,500 Mcg Tablet, 1 TAB PO QAM 12/14/16 Multivitamin (MULTIVITAMINS) 1 Each Tablet, 1 EACH PO DAILY 03/25/16 Cholecalciferol (Vitamin D3) (VITAMIN D3) 1,000 Unit Capsule, 5000 UNIT PO QAM, CAPSULE 10/19/14 Trazodone Hcl (TRAZODONE HCL) 100 Mg Tablet, 100 MG PO QPM 10/19/14 Quetiapine Fumarate (SEROQUEL) 50 Mg Tablet, 50 MG PO QPM 10/19/14 Discontinued Reported Medications Warfarin Sodium (COUMADIN) 1 Mg Tablet, 1 MG PO QDAY, #50 Take 1 Pill (1mg) on Friday, Friday, , Friday. Take 2 Pills (2mg) on Friday, Friday, Friday08/22/17 Hydrocodone Bit/Acetaminophen (HYDROCODON-ACETAMINOPHEN 5-325) 1 Each Tablet, 1- 2 EACH PO Q6H for PAIN, #30 TAB 08/22/17 Cyclobenzaprine Hcl (CYCLOBENZAPRINE HCL) 5 Mg Tablet, 5-10 MG PO TID Y for SPASMS, #9 TAB 08/14/17 Acetaminophen (TYLENOL) 325 Mg Tablet, 1-2 TAB PO Q6H for pain or fever, TAB 08/14/17 Aspirin (ASPIRIN EC) 81 Mg Tablet.dr, 81 MG PO QDAY, TAB 08/14/17 Allergies: Coded Allergies: propoxyphene (Verified Allergy, Mild, vomiting, 08/08/17) oxycodone (Verified Allergy, Unknown, 08/08/17) Uncoded Allergies: CLEANSERS (Allergy, Mild, 11/24/07) HAYFEVER (Allergy, Mild, UNKNOWN, 01/01/12) PERFUME (Allergy, Unknown, 03/09/14) Patient History: Colon cancer Hx Smoking: Yes (in 20s and 30s) Smoking Status: Former Smoker Exposure to Second Hand Smoke?: Yes Caffeine Intake: Tea Caffeine/Cups Per Day: Very little Hx Alcohol Use: No Hx Substance Use Disorder: No Social Drug Use: Never Review of Systems All Systems Reviewed/Normal: Yes, Except as Noted Constitutional: Fever Neurological: Weakness Respiratory: Cough Exam Vital Signs Vital Signs Date Time Temp Pulse Resp B/P (MAP) Pulse Ox O2 Delivery O2 Flow Rate FiO2 09/29/17 17:40 99.2 132 20 91 Nasal Cannula 3.0 09/29/17 16:55 181/142 (155) Neuro: Other (Left sided facial droop at corner of mouth only.) Eyes: PERRLA Cardiovascular: Regular Rate and Rhythm Respiratory: Clear to Auscultation Extremities: No Edema Integumentary: No Cyanosis Medical Decision Making Data Points Result Diagram: 09/29/17174409/29/171744 Item Value Date Time Lactate 1.6 mmol/L 09/29/171744 EKG / Imaging Imaging Chest x-ray reviewed. Assessment and Plan Problems: (1) Bacterial pneumonia Assessment & Plan: She did present with fever (102), cough, and weakness. Her x-ray has shown new multifocal infiltrates and her WBC is elevated. We have started her on empiric treatment with ceftriaxone and azithromycin. Blood cultures are pending and a repeat chest x-ray is ordered for the morning. 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 She appears to have a left sided facial droop involving only the corner of the mouth. A CT scan was negative, but we may need to consider an MRI if this persists. (3) Paroxysmal atrial fibrillation Assessment & Plan: She is on chronic treatment with metoprolol. (4) Essential hypertension Assessment & Plan: She is on chronic treatment with lisinopril. (5) Depression Status: Chronic Assessment & Plan: She is on chronic treatment with duloxetine, Seroquel, and trazodone. Venous Thromboembolism Antithrombotics Is Pt On Any Antithrombotics?: No Exam Sepsis Risk: No Definite Risk INNA STAUFFER DO Sep 29, 2017 19:06
[2017-09-29] MEDS: cefTRIAXone 2 GM VIAL IVP SCH (20:39)
[2017-09-29] MEDS: QUEtiapine FUM 25 MG TAB PO SCH (20:39)
[2017-09-29] MEDS: METOPROLOL TART 50 MG TAB PO SCH (20:39)
[2017-09-29] MEDS: IBUPROFEN 200 MG TAB PO PRN (20:39)
[2017-09-29] MEDS: AZITHROMYCIN(*) 500 MG 500 MG in NS(*) 0.9% 250 ML BAG 250 ML IVPB SCH (20:40)
[2017-09-30] VITALS (7 sets, daily range): BP systolic 97–164; BP diastolic 77–94
[2017-09-30 06:13] LABS: PLATELET COUNT, AUTOMATED 295 K/uL (150-450)
[2017-09-30 06:29] LABS: INR 1.21
--- NOTE | 2017-09-30 06:47 | RADIOLOGY IMAGING REPORT ---
FACILITY: [facility] - [place] PATIENT NAME: Meri Velazquez : 1935 MR: [id number] V: [id number] EXAM DATE: ORDERING PHYSICIAN: INNA STAUFFER TECHNOLOGIST: Location: [facility] Patient: Meri Velazquez : 1935 Visit/Account:[id number] Date of Sevice: 09/30/2017 CHEST PA AND LAT HISTORY: Pneumonia. COMPARISON: 12/30/2017 and studies dating to 05/01/2007. TECHNIQUE: PA and lateral views of the chest. FINDINGS: Tubes/lines/hardware: There are external chest leads. Pulmonary: No change in the patchy bilateral airspace opacities. No pneumothorax. There is new blunti ng of the costophrenic angles, compatible with tiny pleural effusions. Cardiomediastinal: Cardiac and mediastinal silhouettes are within normal limits. The aorta is ectatic . Bones/soft tissues: No acute osseous abnormality. There is mild degenerative change of the spine. The re is diffuse bony demineralization. The visible abdomen is normal. IMPRESSION: 1. No change in the bilateral airspace opacities. 2. New tiny bilateral pleural effusions. Report Dictated By: Madeline Hollingsworth at 09/30/2017 6:39 AM Report E-Signed By: Madeline Hollingsworth at 09/30/2017 6:42 AM WSN:[id number]
[2017-09-30] MEDS: DULoxetine HCL 30 MG CAPCR PO SCH (09:21)
[2017-09-30] MEDS: PANTOPRAZOLE SOD 40 MG TABEC PO SCH (09:21)
[2017-09-30] MEDS: LISINOPRIL 10 MG TAB PO SCH (09:21)
[2017-09-30] MEDS: METOPROLOL TART 50 MG TAB PO SCH ×2 (09:21→20:27)
[2017-09-30] MEDS: ARIPiprazole 10 MG TAB PO SCH (09:21)
[2017-09-30] MEDS: ENOXAPARIN 40 MG/0.4ML SYR SC SCH (09:23)
--- NOTE | 2017-09-30 11:33 | RADIOLOGY IMAGING REPORT ---
FACILITY: [facility] - [place] PATIENT NAME: Meri Velazquez : 1935 MR: [id number] V: [id number] EXAM DATE: ORDERING PHYSICIAN: JOE HAHN TECHNOLOGIST: Location: [facility] Patient: Meri Velazquez : 1935 Visit/Account:[id number] Date of Sevice: 09/30/2017 BRAIN W/O CONTRAST Comparisons: Head CT scan without contrast dated September 29, 2017 Additional pertinent history: Weakness on left side. TECHNIQUE: Multiplanar, multisequence brain MRI was performed without gadolinium contrast. FINDINGS: Sagittal midline structures and craniocervical junction: Negative. Midline shift: None. Ventricles: Mild enlargement of the lateral and third ventricles. Brain parenchyma: Diffusion weighted imaging: Negative. Gradient sequence: Negative. T2 weighted FLAIR images: Scattered foci of abnormal increased T2 signal within the periventricular and subcortical white matter, nonspecific but likely representing small vessel ischemic change on a chronic basis. Extra-axial spaces: Negative. Dural venous sinuses and major arterial flow voids: Negative. Mastoid air cells and paranasal sinuses: Large mucous retention cyst involving the left maxillary sin us. Near-complete opacification of the left sphenoid sinus. Mild mucosal thickening involving the eth moid air cells. Surrounding soft tissues and orbits: Negative. Impression: 1. Age related changes as described above. 2. No evidence of acute intracranial pathology. 3. Underlying paranasal sinus disease. Report Dictated By: John Paul Polanco MD at 09/30/2017 11:23 AM Report E-Signed By: John Paul Polanco MD at 09/30/2017 11:29 AM WSN:[email or web address]
--- NOTE | 2017-09-30 12:25 | Hospitalist Progress Note ---
Subjective Progress Notes Subjective The patient is without focal complaints. She denies any focal weakness. Family thinks that the patient might have a bit of a left facial droop. Physical Exam Vital Signs Date Time Temp Pulse Resp B/P (MAP) Pulse Ox O2 Delivery O2 Flow Rate FiO2 09/30/17 11:50 98.2 86 18 164/94 (117) 95 Nasal Cannula 3.0 Intake and Output 10/01/17 07:00 Intake Total 60 ml Balance 60 ml Intake Oral 60 ml General Appearance: Alert, Awake, No Acute Distress Neuro: Other (right side of the face is without much movement secondary to Baldwin 's Palsey. Possible left mouth droop, but it moves appropriately. UE and LE strength is symmetric) Cardiovascular: Other (Irregular) Respiratory: Clear to Auscultation Result Diagram: 09/30/1755609/30/17556 Assessment and Plan Problems: (1) Bacterial pneumonia Assessment & Plan: She did present with fever (102), cough, and weakness. Her x-ray has shown new multifocal infiltrates and her WBC is elevated. We have started her on empiric treatment with ceftriaxone and azithromycin. Blood cultures are pending. BP/P is stable. 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 She appears to have a left sided facial droop involving only the corner of the mouth. A CT scan and MRI were negative for stroke, hemorrhage or mass. (3) Paroxysmal atrial fibrillation Assessment & Plan: She is on chronic treatment with metoprolol. 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 It is unclear why the patient stopped it on her own. She is unclear on the dose but was getting 1mg tablets and reports that she would take 2 tablets most days of the week. Will start at 2mg a day with daily INR. Lovenox 40mg a day to bridge. (4) Essential hypertension Assessment & Plan: She is on chronic treatment with lisinopril and metoprolol. (5) Depression Status: Chronic Assessment & Plan: She is on chronic treatment with duloxetine, Seroquel, and trazodone. Exam Sepsis Risk: No Definite Risk JOE HAHN MD Sep 30, 2017 12:25
[2017-09-30] MEDS: WARFARIN SOD 2 MG TAB PO SCH (13:20)
[2017-09-30] MEDS ORDERED: QUEtiapine FUM 25 MG TAB PO SCH (17:00)
[2017-09-30] MEDS: cefTRIAXone 2 GM VIAL IVP SCH (20:26)
[2017-09-30] MEDS: IBUPROFEN 200 MG TAB PO PRN (20:26)
[2017-09-30] MEDS: AZITHROMYCIN(*) 500 MG 500 MG in NS(*) 0.9% 250 ML BAG 250 ML IVPB SCH (20:27)
[2017-09-30] MEDS: QUEtiapine FUM 25 MG TAB PO SCH (20:28)
[2017-09-30] MEDS: MELATONIN 3 MG TAB PO SCH (20:28)
[2017-09-30] MEDS ORDERED: NS(*) 0.9% 250 ML BAG 250 ML ONE (20:35)
[2017-10-01 05:18] VITALS: BP 114/75
[2017-10-01 06:13] LABS: PLATELET COUNT, AUTOMATED 243 K/uL (150-450)
[2017-10-01 06:20] LABS: INR 1.22
[2017-10-01 07:48] VITALS: BP 142/88
[2017-10-01] MEDS: ARIPiprazole 10 MG TAB PO SCH (08:28)
[2017-10-01] MEDS: DULoxetine HCL 30 MG CAPCR PO SCH (08:28)
[2017-10-01] MEDS: LISINOPRIL 10 MG TAB PO SCH (08:29)
[2017-10-01] MEDS: METOPROLOL TART 50 MG TAB PO SCH ×2 (08:29→20:25)
[2017-10-01] MEDS: PANTOPRAZOLE SOD 40 MG TABEC PO SCH (08:29)
[2017-10-01] MEDS: ENOXAPARIN 40 MG/0.4ML SYR SC SCH (08:35)
[2017-10-01] MEDS ORDERED: INFLUENZA VIRUS VAC 0.5 ML SYR IM ONLY ONE (09:00)
[2017-10-01 11:33] VITALS: BP 134/78
[2017-10-01] MEDS: WARFARIN SOD 2 MG TAB PO SCH (12:23)
--- NOTE | 2017-10-01 13:37 | Hospitalist Progress Note ---
Subjective Progress Notes Subjective She reports feeling "better than when I came in". Physical Exam Vital Signs Date Time Temp Pulse Resp B/P (MAP) Pulse Ox O2 Delivery O2 Flow Rate FiO2 10/01/17 11:59 54 10/01/17 11:33 97.9 16 134/78 (96) 97 Nasal Cannula 3.0 Intake and Output 10/02/17 07:00 Intake Total 240 ml Balance 240 ml Intake Oral 240 ml # Voids 1 General Appearance: Alert, Awake Cardiovascular: Other (Irregular with systolic murmur) Respiratory: Other (few rales at right mid lung field) Chest: No Tenderness GI: Soft and Non-Tender Extremities: Warm, Perfused Psych: Alert & Oriented X3 Result Diagram: 10/01/1751310/01/17513 Assessment and Plan Problems: (1) Bacterial pneumonia Assessment & Plan: Improved. She did present with fever, cough, and weakness. Her x-ray shows new multifocal infiltrates and her WBC is elevated. She is on treatment with IV ceftriaxone and azithromycin. Blood cultures are growing GPC in 1 of 2 bottles. BP/P are stable. 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 She appears to have a left sided facial droop involving only the corner of the mouth. CT scan and MRI are negative for stroke , hemorrhage or mass. (3) Paroxysmal atrial fibrillation Assessment & Plan: She is on chronic treatment with metoprolol. 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 It is unclear why the patient stopped it on her own. She is unclear on the dose, but was getting 1mg tablets and reports that she would take 2 tablets most days of the week. We did start at 2mg a day with daily INR. Lovenox to bridge. (4) Essential hypertension Assessment & Plan: She is on chronic treatment with lisinopril and metoprolol. (5) Depression Status: Chronic Assessment & Plan: She is on chronic treatment with duloxetine, Seroquel, and trazodone. Exam Sepsis Risk: No Definite Risk PERFECTO BARILLAS MD Oct 01, 2017 13:37
--- NOTE | 2017-10-01 14:08 | SWALLOW EVALUATION ---
SPEECH THERAPY ASSESSMENT Physician: [facility] Hospitalist Clinician: Angelica Marie MS, [facility], FARZAD Zeng Type of Assessment: Dysphagia Evaluation Patient: Meri Velazquez : 1935, 82yrs Evaluation Date: 10-01-2017 BACKGROUND The patient is an 82 year old female who was admitted to [facility] on 09-29-2017 for pneumonia. This is her second episode of pneumonia this year, as she was admitted to [facility] for pneumonia on 08/08/2017. The patient and her family deny any difficulty with swallowing at home. A ST evaluation was ordered to further assess the swallow structure and function in order to rule out aspiration pneumonia. PREVIOUS LEVEL OF FUNCTION: Primary Medical Diagnosis: Pneumonia Prior Hospitalization: see chart for details Prior Level of Function: see chart for details Medical Complications/Past Medical History: See chart for details LOC / Participation: alert and cooperative Follows instructions: yes Orientation: oriented to person, place, time, situation Functional Communication Deficits impacts swallow function/safety, or response to therapy: No VOICE Vocal Deficits: No DYSPHAGIA Sialorrhea: No Xerostomia: No Supplemental Oxygen Use: Yes. Nasal Cannula 3L Oxygen Saturation: 94-98%. Remains Stable w/ all liquid and food trials. Respiratory Rate: 16bpm COPD Dx: Yes Oral Structure and Function: Lips: mild left side droop, limits retraction but adequate for mastication Tongue: Limited ROM but adequate for swallow function. Teeth: Missing bottom molars on the left side. Pt reports chewing mainly on the right side. Soft Palate: WNL for swallow function. Cranial Nerve Exam: CN 10 Vagus: No noted gag reflex . All other functions were WNL. Pain with Swallow: Denies Respiratory/Swallow Coordination: Typically patterned (ie. exhale/swallow/ exhale) Oral Stage Oral Stage Dysphagia: No Self Feeds: Yes Compensatory Maneuvers Used: None Assistance Required: None Comment: None Pharyngeal Stage Pharyngeal Stage Dysphagia: No s/s of acute pharyngeal stage dysphagia including penetration/ aspiration with liquids or foods. Compensatory Maneuvers Used: None Assistance Required: None Indication of acute aspiration witnessed or reported by patient, family or staff : No Aspiration Risk: Increased 2nd to COPD and patient is geriatric 64+ Comment: None Esophageal Stage Esophageal Stage Dysphagia Indicated: Yes. Patient has GERD and is currently taking medications. Reports symptoms are under control. Odynophagia at/below Suprasternal Notch: Denies Globus Sensation at/below Suprasternal Notch: Denies Compensatory Maneuvers Used: None Assistance Required: None Comment: None ST ASSESSMENT SUMMARY DYSPHAGIA Pt passed swallow assessment for mechanical soft and regular foods. Passed purees and liquids trials. Functional oral intake scale (FOIS): Level VII- total oral diet with no restriction Aspiration Risk: Low. Increased 2nd to COPD and patient is geriatric 64+ The patient and her family deny any current or past s/s of dysphagia. Patient reports that she does not avoid any foods, does not experience dry mouth, and does not struggle with taking pills. RECOMMENDATIONS 1. Diet Modification: Regular diet as tolerated. Thin liquids. 2. Pills: With thin liquids or as tolerate 2. Speech Therapy: MBS may be indicated if pneumonia persists or reoccurs. However, speech therapy does not believe it is indicated at this time. Thank you for this referral. Angelica Marie M.S., [facility], Tammi Mao, [facility] Speech Therapist CAMILA
[2017-10-01 14:50] VITALS: BP 143/95
[2017-10-01] MEDS: IBUPROFEN 200 MG TAB PO PRN (16:02)
[2017-10-01 19:46] VITALS: BP 159/97
[2017-10-01] MEDS: QUEtiapine FUM 25 MG TAB PO SCH (20:25)
[2017-10-01] MEDS: AZITHROMYCIN(*) 500 MG 500 MG in NS(*) 0.9% 250 ML BAG 250 ML IVPB SCH (20:25)
[2017-10-01] MEDS: MELATONIN 3 MG TAB PO SCH (20:25)
[2017-10-01] MEDS: cefTRIAXone 2 GM VIAL IVP SCH (20:25)
[2017-10-01] MEDS: traZODone HCL 50 MG TAB PO PRN (20:42)
[2017-10-01 23:53] VITALS: BP 127/68
[2017-10-02 02:57] VITALS: BP 138/75
[2017-10-02 06:36] LABS: INR 1.3
[2017-10-02 07:35] VITALS: BP 145/75
--- NOTE | 2017-10-02 09:02 | Antimicrobial Stewardship ---
Antimicrobial Time Out Antimicrobial Stewardship MD Service: Hospitalist Indications: CAP Antimicrobial Used Azithromycin and Ceftriaxone Start Date: Sep 29, 2017 Culture Results: Yes (Blood Culture 09/29/17- / bottles GPC in clusters-- likely skin contamination) Eligible for PO Conversion Eligable for PO Conversion: Yes Reviewed with Provider Reviewed w/ Provider on Rounds: Yes Date Reviewed w/ Provider: Oct 02, 2017 Comments Comments 82 yo F admitted with CAP Chest xray - likely multifocal pneumonia WBC 17.1-->15.2-->10.3 Tmax 101.1 Influenza A and B (-) 1. CAP - started on azithromycin and ceftriaxone on 09/29/17, today is day 4 of therapy. Ok to switch to PO azithromycin 500mg po daily and ceftin 500mg po bid to complete 5 days of therapy. Diane Hernández, PharmD, BCOP DIANE HERNÁNDEZ Oct 02, 2017 09:02
--- NOTE | 2017-10-02 09:03 | Hospitalist Progress Note ---
Subjective Progress Notes Subjective Patient states she is starting to feel better. She has increased appetite today , but still feels a little weak. Patient Complains of: Cardiovascular: No: Chest Pain Respiratory: No: Shortness of Breath Physical Exam Vital Signs Date Time Temp Pulse Resp B/P (MAP) Pulse Ox O2 Delivery O2 Flow Rate FiO2 10/02/17 07:49 95 Nasal Cannula 1.0 10/02/17 07:35 97.6 67 145/75 (98) 10/01/17 23:53 14 Intake and Output 10/03/17 07:00 # Voids 1 General Appearance: Alert, Awake, No Acute Distress Cardiovascular: Regular Rate and Rhythm Respiratory: No Respiratory Distress, Clear to Auscultation Psych: Appropriate Mood & Affect Result Diagram: 10/01/1751310/01/17513 Assessment and Plan Problems: (1) Bacterial pneumonia Assessment & Plan: Improved. She did present with fever, cough, and weakness. She was on treatment with IV ceftriaxone and azithromycin. We will switch her to oral azithromycin and Ceftin today to see how she tolerates the antibiotics. Blood cultures are growing GPC in 1 of 2 bottles. 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 (3) Paroxysmal atrial fibrillation Assessment & Plan: She is on chronic treatment with metoprolol. Restarted Warfarin per her [facility] Director's last note. It is unclear why the patient stopped it on her own. She is unclear on the dose, but was getting 1mg tablets and reports that she would take 2 tablets most days of the week. We did start at 2mg a day with daily INR. Lovenox to bridge. (4) Essential hypertension Assessment & Plan: She is on chronic treatment with lisinopril and metoprolol. (5) Depression Status: Chronic Assessment & Plan: She is on chronic treatment with duloxetine, Seroquel, and trazodone. Exam Sepsis Risk: No Definite Risk JULI GUPTAP Oct 02, 2017 09:03
[2017-10-02] MEDS: DULoxetine HCL 30 MG CAPCR PO SCH (09:04)
[2017-10-02] MEDS: LISINOPRIL 10 MG TAB PO SCH (09:05)
[2017-10-02] MEDS: PANTOPRAZOLE SOD 40 MG TABEC PO SCH (09:05)
[2017-10-02] MEDS: IBUPROFEN 200 MG TAB PO PRN (09:05)
[2017-10-02] MEDS: METOPROLOL TART 50 MG TAB PO SCH ×2 (09:06→20:46)
[2017-10-02] MEDS: ENOXAPARIN 40 MG/0.4ML SYR SC SCH (09:06)
[2017-10-02] MEDS: ARIPiprazole 10 MG TAB PO SCH (09:06)
[2017-10-02] MEDS: CEFUROXIME AXETIL 250 MG TAB PO SCH ×2 (09:13→20:46)
[2017-10-02] MEDS: AZITHROMYCIN 250 MG TAB PO SCH (09:13)
[2017-10-02 11:16] VITALS: BP 133/88
[2017-10-02] MEDS: WARFARIN SOD 2 MG TAB PO SCH (12:24)
[2017-10-02 15:11] VITALS: BP 144/90
[2017-10-02 18:54] VITALS: BP 150/84
[2017-10-02 20:40] VITALS: BP 156/97
[2017-10-02] MEDS: QUEtiapine FUM 25 MG TAB PO SCH (20:46)
[2017-10-02] MEDS: MELATONIN 3 MG TAB PO SCH (20:46)
[2017-10-02] MEDS: traZODone HCL 50 MG TAB PO PRN (20:48)
[2017-10-03 05:13] VITALS: BP 158/92
[2017-10-03 05:43] LABS: INR 1.61
[2017-10-03] MEDS ORDERED: WARF2TAB83 PO (10:25)
[2017-10-03] MEDS ORDERED: AZIT500T47 PO (10:25)
[2017-10-03] MEDS ORDERED: CEFU500T10 PO (10:25)
--- NOTE | 2017-10-03 10:45 | Hospitalist Depart ---
Discharge Summary Reason for Hosp/Final Diag: (1) Bacterial pneumonia Hospital Course & Plan: She did present with fever, cough, and weakness. She was started on treatment with IV ceftriaxone and azithromycin as well as oxygen and respiratory treatments. She was progressing very well. We did transition her to oral azithromycin and Ceftin, which she tolerated without problems. One of two blood cultures did grow Staphylococcus hominis, which is most likely a contaminant. She was tolerating low levels of activity fairly well. She was eating and drinking without difficulties. She is still requiring supplemental oxygen at 1L via nasal cannula (and 2L with sleep). She will follow up closely with Cristina Melton [employer] as an outpatient. 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 CT scan and MRI were both unremarkable other than some evidence of small vessel changes. (3) Paroxysmal atrial fibrillation Hospital Course & Plan: She is on chronic treatment with metoprolol. Warfarin has been restarted per her Synthetic Plasterer's last note. It is unclear why the patient stopped it on her own. She is unclear on the dose, but was getting 1mg tablets and reports that she would take 2 tablets most days of the week. We did start at 2mg a day with daily INR. She will need close follow up on her protime and this will be arranged through Cristina Melton [facility]. (4) Essential hypertension Hospital Course & Plan: She is on chronic treatment with lisinopril and metoprolol. (5) Depression Status: Chronic Hospital Course & Plan: She is on chronic treatment with duloxetine, Seroquel, and trazodone. Departure Weight (Pounds): 125 Weight (Ounces): 2.0 Result Diagram: 10/01/1751310/01/17513 Item Value Date Time White Blood Count 17.1 k/uL H 09/29/17 1745 Hemoglobin 14.4 g/dL 09/29/17 174 Hematocrit 43.8 % 09/29/17 174 Platelet Count 303 K/uL 09/29/17 1745 Platelet Count 295 K/uL 09/30/17 05 Hematocrit 41.4 % 09/30/17 05 Hemoglobin 13.4 g/dL 09/30/17556 White Blood Count 15.2 k/uL H 09/30/17 0557 Sodium Level 137 mmol/L 09/29/17 1745 Potassium Level 4.2 mmol/L 09/29/17 174 Chloride Level 100 mmol/L 09/29/17 174 Carbon Dioxide Level 23 mmol/L 09/29/17 174 Blood Urea Nitrogen 26 mg/dl H 09/29/17 174 Creatinine 0.70 mg/dl 09/29/17 174 Glomerular Filtration Rate Calc > 60.0 09/29/17 174 Random Glucose 112 mg/dl H 09/29/17 1745 Lactate 1.6 mmol/L 09/29/17 174 Calcium Level 9.5 mg/dl 09/29/17 174 Total Bilirubin 0.7 mg/dl 09/29/17 174 Aspartate Amino Transf (AST/SGOT) 23 U/L 09/29/17 174 Alanine Aminotransferase (ALT/SGPT) 30 U/L 09/29/17 174 Alkaline Phosphatase 119 U/L 09/29/17 174 Total Protein 6.5 gm/dl 09/29/17 174 Albumin 3.4 g/dl L 09/29/17 1745 Prothrombin Time 15.4 seconds H 09/30/17 0557 Prothromb Time International Ratio 1.21 09/30/17 0557 Prothrombin Time 15.5 seconds H 10/01/17 0514 Prothromb Time International Ratio 1.22 10/01/17 0514 Prothrombin Time 16.4 seconds H 10/02/17 0550 Prothromb Time International Ratio 1.30 10/02/17 0550 Prothrombin Time 19.4 seconds H 10/03/17 0505 Prothromb Time International Ratio 1.61 10/03/17 0505 Influenza Virus Type A (PCR) Negative 09/29/171804 Influenza Virus Type B (PCR) Negative 09/29/17 180 [facility] *LIVE* [address] [place] [address] VICTORINO CADENA M.D., DIRECTOR OF LABORATORY SERVICES FERNANDO COKER M.D., PATHOLOGIST RUN DATE: 10/03/17 Specimen Inquiry Report PAGE 1 RUN TIME: 1000 PATIENT: TREVOR VELAZQUEZ ACCT: [id number] LOC: MED U : [id number] AGE/SX: 82/F ROOM: Critical access hospital REG : 09/29/[address]: INNA STAUFFER DO : 1935 BED: 273 DIS : STATUS: ADM IN TLOC: SPEC #: [id number] MARY: 09/29/17 STATUS: RES REQ #: [id number] RECD: 09/29/[address]: INNA STAUFFER DO SOURCE: BLOOD ENTR: 09/29/[address]: CRISTINA MELTON [facility] ORDERED: CULT BLOOD COMMENTS: Comments: Collect 2 samples from different sites 15 minutes apart Procedure Result Verified BLOOD CULTURE Preliminary 10/03/17-999 NO GROWTH AFTER 4 DAYS, REINCUBATED [facility] *LIVE* [address] [facility] [place] [address] VICTORINO CADENA M.D., DIRECTOR OF LABORATORY SERVICES FERNANDO COKER M.D., PATHOLOGIST RUN DATE: 10/02/17 Specimen Inquiry Report PAGE 1 RUN TIME: 905 PATIENT: TREVOR VELAZQUEZ ACCT: [id number] LOC: MED U : [id number] AGE/SX: 82/F ROOM: Critical access hospital REG : 09/29/[address]: INNA STAUFFER DO : 1935 BED: 273 DIS : STATUS: ADM IN TLOC: SPEC #: [id number] MARY: 09/29/17 STATUS: RES REQ #: [id number] RECD: 09/29/17-[address]: INNA STAUFFER DO SOURCE: BLOOD ENTR: 09/29/17-[address]: CRISTINA MELTONP [facility]: ORDERED: BCGS, CULT BLOOD COMMENTS: Comments: Collect 2 samples from different sites 15 minutes apart Procedure Result Verified BLOOD CULTURE GRAM STAIN Final 09/30/17-1610 AEROBIC BOTTLE POSITIVE GRAM POSITIVE COCCI IN CLUSTERS POSITIVE BLOOD CULTURE GRAM STAIN REPORT CALLED TO: JUAN SURESH DATE/TIME REPORT CALLED: 09/30/18 @16:08 CALLED BY: ANTELMO TRINIDAD BLOOD CULTURE Preliminary 10/02/17 Organism 1 STAPH HOMINIS SSP HOMINIS GROWTH PRESENT IN THE AEROBIC BOTTLE NO GROWTH IN ANAEROBIC BOTTLE AT THIS TIME Miranda MosleyIShaileshCShailesh RX --------- --- CEFAZOLIN R CIPROFLOXACIN <=0.5 S CLINDAMYCIN <=0.25 S ERYTHROMYCIN >=8 R GENTAMICIN <=0.5 S LEVOFLOXACIN <=0.12 S LINEZOLID 2 S OXACILLIN >=4 R BENZYLPENICILLIN >=0.5 R RIFAMPIN <=0.5 S TETRACYCLINE <=1 S TRIMETHOPRIM/SULFAMETHOXAZOLE 40 S VANCOMYCIN <=0.5 S END OF REPORT Imaging PATIENT NAME: Trevor Velazquez : 1935 MR: [id number] V: [id number] EXAM DATE: ORDERING PHYSICIAN: INNA STAUFFER TECHNOLOGIST: Location: [facility] - [place], [place] Patient: Trevor Velazquez : 1935 Visit/Account:[id number] Date of Sev: 09/29/2017 EXAMINATION: Head CT without intravenous contrast HISTORY: Left-sided facial droop TECHNIQUE: Contiguous axial images were obtained from the skull base to the vertex without intravenous contrast. Sagittal and coronal reformatted images are also submitted. Dose Lowering Technique One of the following dose optimization techniques was utilized in the performance of this exam: Automated exposure control; adjustment of the mA and/ or kV according to the patient's size; or use of an iterative reconstruction technique. Specific details can be referenced in the facility's radiology CT exam operational policy. COMPARISON: March 24, 2016 FINDINGS: Brain volume: There Is mild diffuse central cortical atrophy not out of proportion for patient's age Ventricles: Within normal limits for patient's age Acute ischemic changes: None. Hemorrhage: None. 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 White matter: Normal. Vessels: Negative. Extra-axial: As above Calvarium / scalp: Negative. Skull base / visualized face: Negative. 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 TECHNIQUE: Multiplanar, multisequence brain MRI was performed without gadolinium contrast. FINDINGS: Sagittal midline structures and craniocervical junction: Negative. Midline shift: None. Ventricles: Mild enlargement of the lateral and third ventricles. Brain parenchyma: Diffusion weighted imaging: Negative. Gradient sequence: Negative. T2 weighted FLAIR images: Scattered foci of abnormal increased T2 signal within the periventricular and subcortical white matter, nonspecific but likely representing small vessel ischemic change on a chronic basis. Extra-axial spaces: Negative. Dural venous sinuses and major arterial flow voids: Negative. Mastoid air cells and paranasal sinuses: Large mucous retention cyst involving the left maxillary sinus. Near-complete opacification of the left sphenoid sinus. Mild mucosal thickening involving the ethmoid air cells. Surrounding soft tissues and orbits: Negative. Impression: 1. Age related changes as described above. 2. No evidence of acute intracranial pathology. 3. Underlying paranasal sinus disease. Report Dictated By: John Paul Polanco MD at 09/30/2017 11:23 AM Report E-Signed By: John Paul Polanco MD at 09/30/2017 11:29 AM WSN:[id number] PATIENT NAME: Trevor Velazquez : 1935 MR: [id number] V: [id number] EXAM DATE: ORDERING PHYSICIAN: INNA STAUFFER TECHNOLOGIST: Location: [facility] - [place], [place] Patient: Trevor Velazquez : 1935 Visit/Account:[id number] Date of Sevice: 09/30/2017 CHEST PA AND LAT HISTORY: Pneumonia. COMPARISON: 12/30/2017 and studies dating to 05/01/2007. TECHNIQUE: PA and lateral views of the chest. FINDINGS: Tubes/lines/hardware: There are external chest leads. Pulmonary: No change in the patchy bilateral airspace opacities. No pneumothorax. There is new blunting of the costophrenic angles, compatible with tiny pleural effusions. Cardiomediastinal: Cardiac and mediastinal silhouettes are within normal limits. The aorta is ectatic. Bones/soft tissues: No acute osseous abnormality. There is mild degenerative change of the spine. There is diffuse bony demineralization. The visible abdomen is normal. IMPRESSION: 1. No change in the bilateral airspace opacities. 2. New tiny bilateral pleural effusions. Report Dictated By: Madeline Hollingsworth at 09/30/2017 6:39 AM Report E-Signed By: Madeline Hollingsworth at 09/30/2017 6:42 AM WSN:[id number] PATIENT NAME: Trevor Velazquez : 1935 MR: [id number] V: [id number] EXAM DATE: ORDERING PHYSICIAN: INNA STAUFFER TECHNOLOGIST: Location: [facility] - [place], [place] Patient: Trevor Velazquez : 1935 Visit/Account:[id number] Date of Sevice: 09/29/2017 Exam type: CHEST PA AND LAT History: Fever and cough Comparison: August 08, 2017. Findings: Patchy airspace consolidation in the right midlung field appears slightly more prominent. There is now focal areas of airspace consolidation in the periphery of both lower lobes. The cardiac silhouette is mildly enlarged. There is marked ectasia the thoracic aorta hilar prominence appears similar to the prior study. There are spondylotic changes of the thoracic spine IMPRESSION: 1. Patchy airspace consolidation in the right midlung field appears slightly more prominent. There are new focal areas of airspace consolidation in the periphery of both lower lobes. This may represent multifocal pneumonia. Continued surveillance recommended. Report Dictated By: Virginia Richter MD at 09/29/2017 5:40 PM Report E-Signed By: Virginia Richter MD at 09/29/2017 5:43 PM WSN:[email or web address] Condition: Improved Discharge: Home, Self Care Follow-Up Labs: INR (with Cristinajeremy Melton [employer] in 3-5 days) Time Spent: > 30 min Discharge Instructions Home Meds Active Scripts Warfarin Sodium (JANTOVEN) 2 Mg Tablet, 2 MG PO QDAY@13, #30 TAB 1 Refill Prov:PERFECTO BARILLAS MD 10/03/17 Cefuroxime Axetil (CEFUROXIME) 500 Mg Tablet, 500 MG PO BID, #14 TAB Prov:PERFECTO BARILLAS MD 10/03/17 Azithromycin (AZITHROMYCIN) 500 Mg Tablet, 1 TAB PO QDAY, #3 TAB 0 Refills Prov:PERFECTO BARILLAS MD 10/03/17 Magnesium Oxide (MAG-OXIDE) 400 Mg Tablet, 400 MG PO BID, #60 TAB Prov:VENTURA BARILLAS MD 08/21/17 Melatonin (MELATONIN) 5 Mg Tablet, 5 MG PO HS, #30 TAB Prov:VENTURA BARILLAS MD 04/03/16 Reported Medications Lisinopril (LISINOPRIL) 10 Mg Tablet, 10 MG PO QDAY, TAB 09/29/17 Duloxetine Hcl (CYMBALTA) 60 Mg Capsule.dr, 60 MG PO QDAY, #5 CAP 08/14/17 Sumatriptan Succinate (SUMATRIPTAN SUCCINATE) 50 Mg Tablet, 50 MG PO ONCE Y for HEADACHE, #5 TAB May repeat dose 1 time after 2 hours if needed. Do not exceed 200mg in 24 hours. 08/14/17 Omeprazole (OMEPRAZOLE) 40 Mg Capsule.dr, 40 MG PO QDAY Y for REFLUX, CAP 08/14/17 Aripiprazole (ABILIFY) 5 Mg Tablet, 5 MG PO QDAY, #10 TAB 08/14/17 Metoprolol Tartrate (METOPROLOL TARTRATE) 25 Mg Tablet, 25 MG PO BID, TAB 08/14/17 Colestipol Hcl (COLESTIPOL HCL) 1 Gm Tablet, 1 GM PO HS for diarrhea 12/15/16 Cyanocobalamin (Vitamin B-12) (Vitamin B12) 2,500 Mcg Tablet, 1 TAB PO QAM 12/14/16 Multivitamin (MULTIVITAMINS) 1 Each Tablet, 1 EACH PO DAILY 03/25/16 Cholecalciferol (Vitamin D3) (VITAMIN D3) 1,000 Unit Capsule, 5000 UNIT PO QAM, CAPSULE 10/19/14 Trazodone Hcl (TRAZODONE HCL) 100 Mg Tablet, 100 MG PO QPM 10/19/14 Quetiapine Fumarate (SEROQUEL) 50 Mg Tablet, 50 MG PO QPM 10/19/14 Discontinued Reported Medications Hydrocodone Bit/Acetaminophen (HYDROCODON-ACETAMINOPHEN 5-325) 1 Each Tablet, 1- 2 EACH PO Q6H for PAIN, #30 TAB 08/22/17 Warfarin Sodium (COUMADIN) 1 Mg Tablet, 1 MG PO QDAY, #50 Take 1 Pill (1mg) on Friday, Friday, , Friday. Take 2 Pills (2mg) on Friday, Friday, Friday08/22/17 Hydrocodone Bit/Acetaminophen (HYDROCODON-ACETAMINOPHEN 5-325) 1 Each Tablet, 1- 2 EACH PO Q6H for PAIN, #30 TAB 08/22/17 Cyclobenzaprine Hcl (CYCLOBENZAPRINE HCL) 5 Mg Tablet, 5-10 MG PO TID Y for SPASMS, #9 TAB 08/14/17 Acetaminophen (TYLENOL) 325 Mg Tablet, 1-2 TAB PO Q6H for pain or fever, TAB 08/14/17 Aspirin (ASPIRIN EC) 81 Mg Tablet.dr, 81 MG PO QDAY, TAB 08/14/17 Follow up Referrals: Family Practice with Cristina Melton Diet: Regular Activity: As Tolerated, No Exertion Special Instructions: Home oxygen at 1L continuously and 2L with sleep. Follow up with Cristina SONG for protime in 3-5 days and follow up appointment in 5-7 days. Copies to: CRISTINA MELTON Venous Thromboembolism Antithrombotics Is Pt On Any Antithrombotics?: No PERFECTO BARILLAS MD Oct 03, 2017 10:45
[2017-10-03 10:49] VITALS: BP 149/101
[2017-10-03] MEDS: ENOXAPARIN 40 MG/0.4ML SYR SC SCH (11:23)
[2017-10-03] MEDS: AZITHROMYCIN 250 MG TAB PO SCH (11:24)
[2017-10-03] MEDS: DULoxetine HCL 30 MG CAPCR PO SCH (11:24)
[2017-10-03] MEDS: LISINOPRIL 10 MG TAB PO SCH (11:24)
[2017-10-03] MEDS: CEFUROXIME AXETIL 250 MG TAB PO SCH (11:24)
[2017-10-03] MEDS: PANTOPRAZOLE SOD 40 MG TABEC PO SCH (11:24)
[2017-10-03] MEDS: WARFARIN SOD 2 MG TAB PO SCH (11:24)
[2017-10-03] MEDS: METOPROLOL TART 50 MG TAB PO SCH (11:25)
[2017-10-03] MEDS: ARIPiprazole 10 MG TAB PO SCH (11:25)
== END 2017-10-03 13:05 | disposition home or self-care (01) | DRG 194 ==
LOC: EDSTATUS 16:41 → MED 16:43
PROVIDERS: ADMIT Family Medicine; ATTEND Family Medicine
DX: J15.9 Unspecified bacterial pneumonia (principal); J44.0 Chronic obstructive pulmonary disease with (acute) lower respiratory infection; I67.82 Cerebral ischemia; G51.0 Bell's palsy; I48.0 Paroxysmal atrial fibrillation; I10 Essential (primary) hypertension; F32.9 Major depressive disorder, single episode, unspecified; D32.0 Benign neoplasm of cerebral meninges; R01.1 Cardiac murmur, unspecified; Z90.49 Acquired absence of other specified parts of digestive tract; Z79.01 Long term (current) use of anticoagulants; Z88.5 Allergy status to narcotic agent; Z88.8 Allergy status to other drugs, medicaments and biological substances; Z87.891 Personal history of nicotine dependence; Z90.710 Acquired absence of both cervix and uterus; Z99.81 Dependence on supplemental oxygen
CPT/HCPCS: 36415; 70450; 70551; 71046; 82040; 82247; 82310; 82374; 82435; 82565; 82947; 83605; 84075; 84132; 84155; 84295; 84450; 84460; 84520; 85025; 85610; 87040; 87077; 87186; 87502; 97162; 97165; J0456; J0696; J1650; J7050

== ENCOUNTER → 2018-01-15 | Outpatient (CLI) | payer MEDICARE, OTHER ==
[2016-12-15 14:54] VITALS: BMI 24.7
[~2018-01-15] MED LIST changes: +AZIT500T47 PO; +LISI-362 PO; -RANI-324 PO; +RANI-366 PO; +WARF2TAB83 PO
--- NOTE | 2018-01-15 16:07 | RADIOLOGY IMAGING REPORT ---
FACILITY: [facility] - [place] PATIENT NAME: Meri Velazquez : 1935 MR: [id number] V: [id number] EXAM DATE: ORDERING PHYSICIAN: KATHLEEN JULES TECHNOLOGIST: Location: [facility] [place] Patient: Meri Velazquez : 1935 Visit/Account:[id number] Date of Sevice: 01/15/2018 Exam type: VENOUS DOPP LOW LEFT EXTREMITY History: Left leg swelling x5 months Comparison: October 19, 2014. Findings: The left lower extremity veins were imaged including the left common femoral vein, superficial femora l vein, popliteal vein, posterior tibial vein, peroneal vein, anterior tibial vein revealing no evide nce of intraluminal thrombi. The veins were compressible and demonstrated augmentation IMPRESSION: 1. No sonographic evidence DVT involving the left lower extremity veins Report Dictated By: Virginia Richter MD at 01/15/2018 4:01 PM Report E-Signed By: Virginia Richter MD at 01/15/2018 4:02 PM WSN:[email or web address]
== END ==
LOC: US 07:01
PROVIDERS: ATTEND Nurse Practitioner Family
DX: R60.0 Localized edema (principal)

== ENCOUNTER → 2018-05-14 | Outpatient (REF) | payer MEDICARE, OTHER ==
[2016-12-15 14:54] VITALS: BMI 24.7
[~2018-05-14] MED LIST changes: +AMLO-111 PO; -AMLO-96 PO; -POTA20PA10 PO; +POTA20PA31 PO; -TRAZ-163 PO; +TRAZ100T31 PO
[2018-05-14 12:17] LABS: PLATELET COUNT, AUTOMATED 261 K/uL (150-450)
== END ==
PROVIDERS: ATTEND Nurse Practitioner Family
DX: R05 Cough (principal)
CPT/HCPCS: 82040; 82247; 82310; 82374; 82435; 82565; 82947; 84075; 84132; 84155; 84295; 84450; 84460; 84520; 85025

== ENCOUNTER → 2018-05-19 | Outpatient (CLI) | payer MEDICARE, OTHER ==
[2016-12-15 14:54] VITALS: BMI 24.7
--- NOTE | 2018-05-19 11:37 | RADIOLOGY IMAGING REPORT ---
FACILITY: [facility] PATIENT NAME: Meri Velazquez : 1935 MR: [id number] V: [id number] EXAM DATE: ORDERING PHYSICIAN: LAVONNE CHENEY TECHNOLOGIST: Location: [facility] Patient: Meri Velazquez : 1935 Visit/Account:[id number] Date of Sevice: 05/19/2018 CHEST W/O CONTRAST History: Enlarged aorta TECHNIQUE: Contiguous axial images were performed through the chest to the level of the adrenal gla nds. No IV contrast was administered. Coronal and sagittal reformatting was also performed.Dose Lower ing Technique One of the following dose optimization techniques was utilized in the performance of this exam: Autom ated exposure control; adjustment of the mA and/or kV according to the patient's size; or use of an i terative reconstruction technique. Specific details can be referenced in the facility's radiology C T exam operational policy. COMPARISON STUDIES: CTA chest August 08, 2017. Lungs / Pleura: The previously noted dense airspace consolidation in the right upper lobe has almos t completely resolved with only a small area of linear consolidation remaining which likely represent s scar. Previously noted 4 mm nodule in the right upper lobe has also resolved most likely inflammat ory. There Is a small wedge of chronic consolidation in the inferior lingula appears unchanged. Chr onic wedge-shaped consolidation in the medial inferior right middle lobe also appears unchanged Mediastinum/nodes: The previously noted enlarged pretracheal lymph nodes have decreased in size Heart and vessels: The dilatation of the ascending thoracic aorta is slightly increased now measurin g 4.4 cm in AP dimension as opposed to 4.2 cm previously. The descending thoracic aorta measures 3.1 cm in diameter and is relatively unchanged. prominence of the central pulmonary arteries appear similar to the prior study Musculoskeletal / Body wall: There are spondylotic changes of the thoracic spine with Schmorl's nod es at multiple levels Upper abdomen: Largest cyst in the hepatic dome appears relatively unchanged small peritoneal calci fications also again noted IMPRESSION: A descending thoracic aortic aneurysm is slightly increased in size now measuring 4.4 cm in AP dimens ion as opposed to 4.2 cm previously. Descending thoracic aorta measures 2.1 cm in diameter and is relatively unchanged Prominence of the central pulmonary arteries appears relatively unchanged Previously noted dense airspace consolidation right upper lobe has also completely resolved with only a small linear area of consolidation remain which likely represents a scar. Previous noted 4 mm nodule in the right upper lobe has also resolved A chronic wedge-shaped consolidation in the inferior lingula and right middle lobe appears unchanged Report Dictated By: Virginia Richter MD at 05/19/2018 10:48 AM Report E-Signed By: Virginia Richter MD at 05/19/2018 11:34 AM WSN:[email or web address]
== END ==
LOC: CT 00:38
PROVIDERS: ATTEND Internal Medicine Cardiovascular Disease
DX: I71.2 Thoracic aortic aneurysm, without rupture (principal)
CPT/HCPCS: 71250

== ENCOUNTER 2018-07-28 12:15 | Emergency (ER) | payer MEDICARE, OTHER ==
[2016-12-15 14:54] VITALS: Wt 61.2 kg
--- NOTE | 2018-07-28 12:27 | ER Report ---
History and Physical Time Seen By MD: 12:27 Hx. of Stated Complaint: pt fell 4 days ago. back has been hurting since the fall. went to urgent care yesterday, they did xrays and discharged her with gabapentin HPI/ROS Tripped over a cord in her house and fell onto her back 4 days ago. Has had midline low back pain since the fall. Pain is not improving. Had an x-ray at urgent care yesterday, and was told she could have a new versus old fracture of the spine. She has not been taking any medication. She denies any abdominal pain, no hematuria, no changes in bowel or bladder, no weakness in her lower extremities. No other injuries. She denies hitting her head or LOC. Remainder of the 14 system rev: Yes Allergies: Coded Allergies: propoxyphene (Verified Allergy, Mild, vomiting, 08/08/17) oxycodone (Verified Allergy, Unknown, 08/08/17) Uncoded Allergies: CLEANSERS (Allergy, Mild, 11/24/07) HAYFEVER (Allergy, Mild, UNKNOWN, 01/01/12) PERFUME (Allergy, Unknown, 03/09/14) Home Meds Active Scripts Cefuroxime Axetil (CEFUROXIME) 500 Mg Tablet, 500 MG PO BID, #14 TAB Prov:PERFECTO BARILLAS MD 10/03/17 Azithromycin (AZITHROMYCIN) 500 Mg Tablet, 1 TAB PO QDAY, #3 TAB 0 Refills Prov:PERFECTO BARILLAS MD 10/03/17 Magnesium Oxide (MAG-OXIDE) 400 Mg Tablet, 400 MG PO BID, #60 TAB Prov:VENTURA BARILLAS MD 08/21/17 Melatonin (MELATONIN) 5 Mg Tablet, 5 MG PO HS, #30 TAB Prov:VENTURA BARILLAS MD 04/03/16 Reported Medications Apixaban (ELIQUIS) 2.5 Mg Tablet, 2.5 MG PO BID 07/28/18 Lisinopril (LISINOPRIL) 10 Mg Tablet, 10 MG PO QDAY, TAB 09/29/17 Duloxetine Hcl (CYMBALTA) 60 Mg Capsule.dr, 60 MG PO QDAY, #5 CAP 08/14/17 Sumatriptan Succinate (SUMATRIPTAN SUCCINATE) 50 Mg Tablet, 50 MG PO ONCE PRN for HEADACHE, #5 TAB May repeat dose 1 time after 2 hours if needed. Do not exceed 200mg in 24 hours. 08/14/17 Omeprazole (OMEPRAZOLE) 40 Mg Capsule.dr, 40 MG PO QDAY PRN for REFLUX, CAP 08/14/17 Aripiprazole (ABILIFY) 5 Mg Tablet, 5 MG PO QDAY, #10 TAB 08/14/17 Metoprolol Tartrate (METOPROLOL TARTRATE) 25 Mg Tablet, 25 MG PO BID, TAB 08/14/17 Colestipol Hcl (COLESTIPOL HCL) 1 Gm Tablet, 1 GM PO HS for diarrhea 12/15/16 Cyanocobalamin (Vitamin B-12) (Vitamin B12) 2,500 Mcg Tablet, 1 TAB PO QAM 12/14/16 Multivitamin (MULTIVITAMINS) 1 Each Tablet, 1 EACH PO DAILY 03/25/16 Cholecalciferol (Vitamin D3) (VITAMIN D3) 1,000 Unit Capsule, 5000 UNIT PO QAM, CAPSULE 10/19/14 Trazodone Hcl (TRAZODONE HCL) 100 Mg Tablet, 100 MG PO QPM 10/19/14 Quetiapine Fumarate (SEROQUEL) 50 Mg Tablet, 50 MG PO QPM 10/19/14 Discontinued Scripts Warfarin Sodium (JANTOVEN) 2 Mg Tablet, 2 MG PO QDAY@13, #30 TAB 1 Refill Prov:PERFECTO BARILLAS MD 10/03/17 Hx Smoking: Yes (in 20s and 30s) Smoking Status: Former Smoker Exposure to Second Hand Smoke?: Yes Hx Substance Use Disorder: No Hx Alcohol Use: No Constitutional Vital Sign - Last 24 Hours 07/28/18 07/28/18 07/28/18 07/28/18 12:20 12:22 12:30 12:45 Temp 97.6 Pulse 68 58 Resp 18 B/P (MAP) 176/120 176/123 (140) 167/115 (132) Pulse Ox 90 75 07/28/18 07/28/18 07/28/18 13:15 13:45 14:00 Pulse 54 60 B/P (MAP) 176/90 (118) Pulse Ox 98 Physical Exam General Appearance: The patient is alert, has no immediate need for airway protection and no current signs of toxicity. Head: NCAT Eyes: Pupils equal and round no injection. Respiratory: Chest is non tender, lungs are clear to auscultation. Cardiac: regular rate and rhythm Gastrointestinal: Abdomen is soft and non tender, no masses, bowel sounds normal. Musculoskeletal: TTP of the midline lumbar spine from L2-L4, no step-offs Neck: Neck is supple and non tender. Extremities have full range of motion and are non tender. Skin: No rashes or lesions. Neuro: Strength/sensation grossly in tact DIFFERENTIAL DIAGNOSIS: After history and physical exam differential diagnosis was considered for back pain including but not limited to muscular pain, herniated disc, spine fracture, intra-abdominal causes and urinary tract infection. Medical Decision Making Data Points Result Diagram: 07/28/18 1245 07/28/18 1245 Laboratory Hematology Test 07/28/18 12:45 Red Blood Count 4.75 M/uL (4.17-5.56) Mean Corpuscular Volume 88.6 fL (80.0-96.0) Mean Corpuscular Hemoglobin 29.4 pg (26.0-33.0) Mean Corpuscular Hemoglobin Concent 33.2 g/dL (32.0-36.0) Red Cell Distribution Width 15.1 % (11.5-14.5) Mean Platelet Volume 7.4 fL (7.2-11.1) Neutrophils (%) (Auto) 59.1 % (39.4-72.5) Lymphocytes (%) (Auto) 28.0 % (17.6-49.6) Monocytes (%) (Auto) 10.8 % (4.1-12.4) Eosinophils (%) (Auto) 1.5 % (0.4-6.7) Basophils (%) (Auto) 0.6 % (0.3-1.4) Nucleated RBC Relative Count (auto) 0.0 /100WBC Neutrophils # (Auto) 3.7 K/uL (2.0-7.4) Lymphocytes # (Auto) 1.7 K/uL (1.3-3.6) Monocytes # (Auto) 0.7 K/uL (0.3-1.0) Eosinophils # (Auto) 0.1 K/uL (0.0-0.5) Basophils # (Auto) 0.0 K/uL (0.0-0.1) Nucleated RBC Absolute Count (auto) 0.00 K/uL Sodium Level 142 mmol/L (137-145) Potassium Level 3.6 mmol/L (3.5-5.0) Chloride Level 108 mmol/L (98-107) Carbon Dioxide Level 28 mmol/L (22-31) Blood Urea Nitrogen 22 mg/dl (7-18) Creatinine 0.80 mg/dl (0.52-1.04) Glomerular Filtration Rate Calc > 60.0 Random Glucose 107 mg/dl (75-110) Calcium Level 9.1 mg/dl (8.4-10.2) Total Bilirubin 0.8 mg/dl (0.2-1.3) Aspartate Amino Transf (AST/SGOT) 22 U/L (0-35) Alanine Aminotransferase (ALT/SGPT) 16 U/L (0-56) Alkaline Phosphatase 80 U/L (0-126) Total Protein 6.5 g/dl (6.3-8.2) Albumin 3.6 g/dl (3.5-5.0) Chemistry Test 07/28/18 12:45 White Blood Count 6.2 k/uL (4.5-11.0) Red Blood Count 4.75 M/uL (4.17-5.56) Hemoglobin 14.0 g/dL (12.0-16.0) Hematocrit 42.1 % (34.0-47.0) Mean Corpuscular Volume 88.6 fL (80.0-96.0) Mean Corpuscular Hemoglobin 29.4 pg (26.0-33.0) Mean Corpuscular Hemoglobin Concent 33.2 g/dL (32.0-36.0) Red Cell Distribution Width 15.1 % (11.5-14.5) Platelet Count 230 K/uL (150-450) Mean Platelet Volume 7.4 fL (7.2-11.1) Neutrophils (%) (Auto) 59.1 % (39.4-72.5) Lymphocytes (%) (Auto) 28.0 % (17.6-49.6) Monocytes (%) (Auto) 10.8 % (4.1-12.4) Eosinophils (%) (Auto) 1.5 % (0.4-6.7) Basophils (%) (Auto) 0.6 % (0.3-1.4) Nucleated RBC Relative Count (auto) 0.0 /100WBC Neutrophils # (Auto) 3.7 K/uL (2.0-7.4) Lymphocytes # (Auto) 1.7 K/uL (1.3-3.6) Monocytes # (Auto) 0.7 K/uL (0.3-1.0) Eosinophils # (Auto) 0.1 K/uL (0.0-0.5) Basophils # (Auto) 0.0 K/uL (0.0-0.1) Nucleated RBC Absolute Count (auto) 0.00 K/uL Glomerular Filtration Rate Calc > 60.0 Calcium Level 9.1 mg/dl (8.4-10.2) Total Bilirubin 0.8 mg/dl (0.2-1.3) Aspartate Amino Transf (AST/SGOT) 22 U/L (0-35) Alanine Aminotransferase (ALT/SGPT) 16 U/L (0-56) Alkaline Phosphatase 80 U/L (0-126) Total Protein 6.5 g/dl (6.3-8.2) Albumin 3.6 g/dl (3.5-5.0) EKG/Imaging Imaging Results: CT scan of the abdomen/pelvis was obtained. The results of the study are L2 compression fracture. The study was read by the radiologist. I viewed the images myself on the PACS system. ED Course/Re-evaluation ED Course Simple L2 compression fracture after fall with direct blow to lumbar spine 4 days ago. Patient is on Eliquis, however she did not hit her head and given it has been 4 days since the fall with no signs or symptoms of ICH I do not think s he needs a CT scan of the head. No C-spine pain or tenderness to palpation. No other complaints or injuries Decision to Disposition Date: Jul 28, 2018 Decision to Disposition Time: 14:58 Depart Departure Latest Vital Signs Vital Signs Date Time Temp Pulse Resp B/P (MAP) Pulse Ox O2 Delivery O2 Flow Rate FiO2 07/28/18 14:00 176/90 (118) 07/28/18 13:45 60 07/28/18 13:15 98 07/28/18 12:20 97.6 18 Impression: Primary Impression: Compression fracture of L2 Condition: Improved Disposition: HOME OR SELF-CARE Referrals: KATHLEEN JULES (PCP) MAYRA BRADFORD MD New Scripts Oxycodone Hcl 10 Mg Tab (OXYCODONE HCL 10 MG TAB) 10 Mg Tablet 10 MG PO Q6H for 5 Days, #14 TAB Prov: MEGAN MCCLELLAN MD 07/28/18 Patient Instructions: Vertebral Compression Fracture (ED) Additional Instructions: Try taking tylenol 1 gram (two 500 mg tabs) three times a day for pain. Add the Oxycodone as needed for additional pain control. Take Mirliax if taking oxycodone to avoid constipation. Problem Qualifiers Primary Impression: Compression fracture of L2 Encounter type: initial encounter Fracture type: closed Qualified Codes: S32.020A - Wedge compression fracture of second lumbar vertebra, initial encounter for closed fracture MEGAN MCCLELLAN MD Jul 28, 2018 12:27
[2018-07-28] MEDS ORDERED: APIX2.5T PO (12:31)
[2018-07-28] MEDS ORDERED: NS(*) 0.9% 500 ML BAG 500 ML IV ONE (13:00)
[2018-07-28 13:10] LABS: PLATELET COUNT, AUTOMATED 230 K/uL (150-450)
[2018-07-28] MEDS ORDERED: IOPAMIDOL 76% 75 ML INFUS BTL 75 ML ONE (13:32)
--- NOTE | 2018-07-28 14:11 | RADIOLOGY IMAGING REPORT ---
FACILITY: [facility] PATIENT NAME: Meri Velazquez : 1935 MR: [id number] V: [id number] EXAM DATE: ORDERING PHYSICIAN: MEGAN MCCLELLAN TECHNOLOGIST: Location: [facility] [place] Patient: Meri Velazquez : 1935 Visit/Account:[id number] Date of Sevice: 07/28/2018 ABDOMEN/PELVIS WITH CONTRAST HISTORY: Fall 3 days ago. Back and flank pain. TECHNIQUE: Axial images were obtained through the abdomen and pelvis with intravenous contrast . One of the following dose optimization techniques was utilized in the performance of this exam: automate d exposure control; adjustment of the mA and/or kv according to patient size; or use of iterative rec onstruction technique. Specific details can be referenced in the facility's radiology CT exam operati onal policy. CONTRAST: 75 cc of Isovue-370 COMPARISON: MRI abdomen 09/03/2011 FINDINGS: Visualized lung bases: Basilar platelike atelectasis. Hepatobiliary: Large right lobe hepatic cyst measuring 8.2 x 7.2 cm. Chronic, stable intrahepatic an d extrahepatic biliary ductal dilatation with the common bile duct measuring 15 mm and tapering to 12 mm near the ampulla. Cholecystectomy. Spleen: Negative. Adrenals: Negative. Pancreas: Normal caliber pancreatic duct. No acute peripancreatic inflammatory change. Kidneys/ureters/bladder: No hydronephrosis. Bowel/peritoneum/mesentery: Moderate distal colonic diverticulosis without acute inflammatory change . No bowel obstruction, free air or ascites. Vessels: Negative. Lymph nodes: Negative. Pelvic genitourinary: Negative. Bones/body wall: Acute mild compression fracture at L2. No bony stenosis of the canal. Superior endp late Schmorl's node at L1. Other findings: None significant IMPRESSION: 1. Acute mild compression fracture at L2. No bony stenosis of the canal. 2. Status post cholecystectomy with stable chronic intrahepatic and extrahepatic biliary ductal dilat ation. Recommend correlation with LFTs. Results were called to MEGAN MCCLELLAN at 07/28/2018 2:05 PM. Report Dictated By: Frank Landa MD at 07/28/2018 1:56 PM Report E-Signed By: Frank Landa MD at 07/28/2018 2:06 PM WSN:[id number]
[2018-07-28 14:30] VITALS: BP 141/125
[2018-07-28] MEDS ORDERED: MORPHINE 4 MG/ML SDV IVP ONE (14:30)
[2018-07-28] MEDS ORDERED: ONDANSETRON 4 MG/2 ML VIAL IVP ONE (14:30)
[2018-07-28] MEDS ORDERED: ACETAMINOPHEN 500 MG TAB PO ONE (14:40)
[2018-07-28] MEDS ORDERED: OXYC10TA67 PO (15:02)
[2018-07-28] MEDS ORDERED: PATCH REMOVAL 1 EA TOP SCH (21:00)
[2018-07-29] MEDS ORDERED: LIDOCAINE 5% PATCH TP SCH (09:00)
== END 2018-07-28 15:17 | disposition home or self-care (01) ==
LOC: ER 12:30
DX: S32.020A Wedge compression fracture of second lumbar vertebra, initial encounter for closed fracture (principal); W01.0XXA Fall on same level from slipping, tripping and stumbling without subsequent striking against object, initial encounter
CPT/HCPCS: 74177; 85025; 96361; 96374; 96375; 99284; A9270; J2270; J2405; J7040; Q9967; 82040; 82247; 82310; 82374; 82435; 82565; 82947; 84075; 84132; 84155; 84295; 84450; 84460; 84520

== ENCOUNTER 2018-08-02 09:09 | Emergency (ER) | payer MEDICARE, OTHER ==
[2016-12-15 14:54] VITALS: Wt 61.2 kg
[~2018-08-02 09:09] MED LIST changes: +APIX2.5T PO; +OXYC10TA67 PO
[2018-08-02] MEDS ORDERED: DOCUSATE SODIUM 100 MG CAP PO ONE (10:05)
[2018-08-02] MEDS ORDERED: APAP/HYDROCODONE 325/5 TAB PO ONE (10:05)
[2018-08-02] MEDS ORDERED: ACETAMINOPHEN 500 MG TAB PO ONE (10:10)
--- NOTE | 2018-08-02 10:19 | ER Report ---
History and Physical Time Seen By MD: 09:50 Hx. of Stated Complaint: back pain 2/2 fracture HPI/ROS CHIEF COMPLAINT: back pain HISTORY OF PRESENT ILLNESS: Pt presents for re-evaluation after dx of lumbar compression fracture. She had fall approx 1 week ago and was evaluated here with ct showing lumbar compression fx. Was placed on oxycodone and tylenol. This was helping for 4-5 hrs at a time. However, she ran out of oxycodone last night and now is c/o pain. She denies any new/different pain, denies weakness, abd pain, nausea, vomiting, fevers, chills. She admits she has not obtained and started miralax and has been more constipated but is having bowel movements. She has follow up information for orthopedics. She has TLSO brace but is not currently wearing it. Pain is low lumbar, 8/10, non radiating, not worse than before she began meds. REVIEW OF SYSTEMS: Constitutional: No fever, no chills. Eyes: no blurred vision ENT: No sore throat. Cardiovascular: No chest pain, no palpitations. Respiratory: No cough, no shortness of breath. Gastrointestinal: No abdominal pain, no vomiting. Genitourinary: no dysuria, hematuira Musculoskeletal: above Skin: No rashes. Neurological: No headache. Remainder of the 14 system rev: Yes Allergies: Coded Allergies: propoxyphene (Verified Allergy, Mild, vomiting, 08/08/17) Uncoded Allergies: CLEANSERS (Allergy, Mild, 11/24/07) HAYFEVER (Allergy, Mild, UNKNOWN, 01/01/12) PERFUME (Allergy, Unknown, 03/09/14) Home Meds Active Scripts Oxycodone Hcl 10 Mg Tab (OXYCODONE HCL 10 MG TAB) 10 Mg Tablet, 10 MG PO Q4H for PAIN, #20 TAB Prov:STACEY MCCLELLAN MD 08/02/18 Oxycodone Hcl 10 Mg Tab (OXYCODONE HCL 10 MG TAB) 10 Mg Tablet, 10 MG PO Q6H for 5 Days, #14 TAB Prov:MEGAN MCCLELLAN MD 07/28/18 Cefuroxime Axetil (CEFUROXIME) 500 Mg Tablet, 500 MG PO BID, #14 TAB Prov:PERFECTO BARILLAS MD 10/03/17 Azithromycin (AZITHROMYCIN) 500 Mg Tablet, 1 TAB PO QDAY, #3 TAB 0 Refills Prov:PERFECTO BARILLAS MD 10/03/17 Magnesium Oxide (MAG-OXIDE) 400 Mg Tablet, 400 MG PO BID, #60 TAB Prov:VENTURA BARILLAS MD 08/21/17 Melatonin (MELATONIN) 5 Mg Tablet, 5 MG PO HS, #30 TAB Prov:VENTURA BARILLAS MD 04/03/16 Reported Medications Apixaban (ELIQUIS) 2.5 Mg Tablet, 2.5 MG PO BID 07/28/18 Lisinopril (LISINOPRIL) 10 Mg Tablet, 10 MG PO QDAY, TAB 09/29/17 Duloxetine Hcl (CYMBALTA) 60 Mg Capsule.dr, 60 MG PO QDAY, #5 CAP 08/14/17 Sumatriptan Succinate (SUMATRIPTAN SUCCINATE) 50 Mg Tablet, 50 MG PO ONCE PRN for HEADACHE, #5 TAB May repeat dose 1 time after 2 hours if needed. Do not exceed 200mg in 24 hours. 08/14/17 Omeprazole (OMEPRAZOLE) 40 Mg Capsule.dr, 40 MG PO QDAY PRN for REFLUX, CAP 08/14/17 Aripiprazole (ABILIFY) 5 Mg Tablet, 5 MG PO QDAY, #10 TAB 08/14/17 Metoprolol Tartrate (METOPROLOL TARTRATE) 25 Mg Tablet, 25 MG PO BID, TAB 08/14/17 Colestipol Hcl (COLESTIPOL HCL) 1 Gm Tablet, 1 GM PO HS for diarrhea 12/15/16 Cyanocobalamin (Vitamin B-12) (Vitamin B12) 2,500 Mcg Tablet, 1 TAB PO QAM 12/14/16 Multivitamin (MULTIVITAMINS) 1 Each Tablet, 1 EACH PO DAILY 03/25/16 Cholecalciferol (Vitamin D3) (VITAMIN D3) 1,000 Unit Capsule, 5000 UNIT PO QAM, CAPSULE 10/19/14 Trazodone Hcl (TRAZODONE HCL) 100 Mg Tablet, 100 MG PO QPM 10/19/14 Quetiapine Fumarate (SEROQUEL) 50 Mg Tablet, 50 MG PO QPM 10/19/14 Discontinued Scripts Warfarin Sodium (JANTOVEN) 2 Mg Tablet, 2 MG PO QDAY@13, #30 TAB 1 Refill Prov:PERFECTO BARILLAS MD 10/03/17 Hx Smoking: Yes (in 20s and 30s) Smoking Status: Former Smoker Exposure to Second Hand Smoke?: Yes Hx Substance Use Disorder: No Hx Alcohol Use: No Constitutional Vital Sign - Last 24 Hours 08/02/18 08/02/18 08/02/18 08/02/18 09:09 09:16 09:19 09:24 Temp 98.1 Pulse ??? 74 ??? Resp 14 B/P (MAP) 155/85 (108) 155/85 Pulse Ox 92 84 O2 Delivery Nasal Cannula 08/02/18 08/02/18 08/02/18 08/02/18 09:30 09:39 09:54 10:00 Pulse 69 ??? B/P (MAP) 152/93 (112) 170/109 (129) Pulse Ox 95 89 08/02/18 08/02/18 08/02/18 10:09 10:24 10:30 Pulse 63 ??? B/P (MAP) 180/146 (157) Pulse Ox 90 89 Physical Exam General Appearance: The patient is alert, has no immediate need for airway protection and no signs of toxicity. Eyes: Pupils equal and round no pallor or injection. ENT, Mouth: Mucous membranes are moist. Respiratory: There are no retractions, lungs are clear to auscultation. Cardiovascular: Regular rate and rhythm. Gastrointestinal: Abdomen is soft and non tender, no masses Neurological: alert, moves all ext, no focal deficits Skin: Warm and dry, no rashes. Musculoskeletal: mid lumbar ttp, left paraspinal moderate ttp. Nl sensation Extremities are nontender, nonswollen and have full range of motion. DIFFERENTIAL DIAGNOSIS: After history and physical exam differential diagnosis was considered for new/worsening fracture, pain control, abdominal obstruction/constipation, or other complication of injury/management Medical Decision Making ED Course/Re-evaluation ED Course Pt presents with pain after lumbar compression fx. She has had pain controlled by home meds, but ran out this am. She is using TLSO brace with some relief and she has ortho spine f/u information. SHe has had no subsequent injury and no neuro deficits by hx/exam. After ed eval, pt requires continued pain control; will d/c with continued pain regimen. Pt understands r/b of further opiate medication, but she remains in acute pain at this time. Decision to Disposition Date: Aug 02, 2018 Decision to Disposition Time: 10:35 Depart Departure Latest Vital Signs Vital Signs Date Time Temp Pulse Resp B/P (MAP) Pulse Ox O2 Delivery O2 Flow Rate FiO2 08/02/18 10:30 180/146 (157) 08/02/18 10:24 ??? 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 Continue to take 3 tylenol twice daily, and use oxycodone as needed for pain not controlled by tylenol. For the next 48 hours you may take oxycodone every 4-5 hours to ensure pain is under control Call the orthopedic surgeon tomorrow to set up follow up. Return for new weakness, uncontrolled pain, fevers, or any concerns. STACEY MCCLELLAN MD Aug 02, 2018 10:19
[2018-08-02 10:30] VITALS: BP 180/146
[2018-08-02] MEDS ORDERED: OXYC10TA67 PO (10:35)
== END 2018-08-02 10:48 | disposition home or self-care (01) ==
LOC: ER 09:55
DX: M54.5 Low back pain (principal)
CPT/HCPCS: 99283; A9270

== ENCOUNTER → 2018-08-06 | Outpatient (CLI) | payer MEDICARE, OTHER ==
[2016-12-15 14:54] VITALS: BMI 24.7
[~2018-08-06] MED LIST changes: -AMLO-111 PO; +AMLO-125 PO
--- NOTE | 2018-08-06 16:12 | RADIOLOGY IMAGING REPORT ---
FACILITY: [facility] PATIENT NAME: Meri Velazquez : 1935 MR: [id number] V: [id number] EXAM DATE: ORDERING PHYSICIAN: OLGA COPPOLA TECHNOLOGIST: Location: [facility] [place] Patient: Meri Velazquez : 1935 Visit/Account:[id number] Date of Sevice: 08/06/2018 Exam type: KUB SINGLE VIEW ABDOMEN History: Opioid-induced constipation with vomiting Comparison: August 15, 2016. Findings: Bowel gas pattern is nonspecific other than a moderate amount of stool seen in the left side of the c olon. There is no gross evidence of organomegaly. There are post surgical changes of the right hip. Calcified phleboliths noted in the pelvis IMPRESSION: 1. Moderate amount of fecal material seen in the left side of the colon otherwise nonspecific bowel gas pattern Report Dictated By: Virginia Richter MD at 08/06/2018 4:04 PM Report E-Signed By: Virginia Richter MD at 08/06/2018 4:06 PM WSN:[email or web address]
== END ==
LOC: RAD 15:18
PROVIDERS: ATTEND Nurse Practitioner Family
DX: R11.10 Vomiting, unspecified (principal)
CPT/HCPCS: 74018

== ENCOUNTER 2018-10-07 21:31 | Emergency (ER) | payer MEDICARE, OTHER ==
[2016-12-15 14:54] VITALS: Wt 61.3 kg
[~2018-10-07 21:31] MED LIST changes: -OSE75 FT
--- NOTE | 2018-10-07 21:38 | ER Report ---
History and Physical Time Seen By MD: 21:40 Hx. of Stated Complaint: weak with flu like symptoms going on for several days. getting worse tonight. daughter had to carry her to bed. 86% on ra at home without o2. n/v/d, a and o x 4 (LUIS TORRES MD) Time Seen By MD: 07:00 (LEONARD MANNING DO) HPI/ROS CHIEF COMPLAINT: weakness, flu like symptoms HISTORY OF PRESENT ILLNESS: This is an 83 year old female. She has had flu like symptoms for several days. Poor oral intake. Getting worse tonight where would have fallen had her daughter not caught her. Some episodes of brief confusion tonight as well. Has had cough and congestion. No chest pain. No nausea or vomiting. Was 86% on room air tonight. with mild cold symptoms. Has history of some right facial droop in past that is a little more prominent tonight. (LUIS TORRES MD) HPI/ROS Please see Dr. Torres's note (LEONARD MANNING DO) Allergies: Coded Allergies: propoxyphene (Verified Allergy, Mild, vomiting, 10/07/18) Uncoded Allergies: CLEANSERS (Allergy, Mild, 11/24/07) HAYFEVER (Allergy, Mild, UNKNOWN, 01/01/12) PERFUME (Allergy, Unknown, 03/09/14) Home Meds Active Scripts Oseltamivir Phosphate (TAMIFLU) 75 Mg Cap, 75 MG FT BID for 5 Days, #10 CAP Prov:LEONARD MANNING DO 10/08/18 Oxycodone Hcl 10 Mg Tab (OXYCODONE HCL 10 MG TAB) 10 Mg Tablet, 10 MG PO Q4H for PAIN, #20 TAB Prov:STACEY MCCLELLAN MD 08/02/18 Oxycodone Hcl 10 Mg Tab (OXYCODONE HCL 10 MG TAB) 10 Mg Tablet, 10 MG PO Q6H for 5 Days, #14 TAB Prov:MEGAN MCCLELLAN MD 07/28/18 Cefuroxime Axetil (CEFUROXIME) 500 Mg Tablet, 500 MG PO BID, #14 TAB Prov:PERFECTO BARILLAS MD 10/03/17 Magnesium Oxide (MAG-OXIDE) 400 Mg Tablet, 400 MG PO BID, #60 TAB Prov:VENTURA BARILLAS MD 08/21/17 Melatonin (MELATONIN) 5 Mg Tablet, 5 MG PO HS, #30 TAB Prov:VENTURA BARILLAS MD 04/03/16 Reported Medications Apixaban (ELIQUIS) 2.5 Mg Tablet, 2.5 MG PO BID 07/28/18 Lisinopril (LISINOPRIL) 10 Mg Tablet, 10 MG PO QDAY, TAB 09/29/17 Duloxetine Hcl (CYMBALTA) 60 Mg Capsule.dr, 60 MG PO QDAY, #5 CAP 08/14/17 Sumatriptan Succinate (SUMATRIPTAN SUCCINATE) 50 Mg Tablet, 50 MG PO ONCE PRN for HEADACHE, #5 TAB May repeat dose 1 time after 2 hours if needed. Do not exceed 200mg in 24 hours. 08/14/17 Omeprazole (OMEPRAZOLE) 40 Mg Capsule.dr, 40 MG PO QDAY PRN for REFLUX, CAP 08/14/17 Metoprolol Tartrate (METOPROLOL TARTRATE) 25 Mg Tablet, 25 MG PO BID, TAB 08/14/17 Colestipol Hcl (COLESTIPOL HCL) 1 Gm Tablet, 1 GM PO HS for diarrhea 12/15/16 Cyanocobalamin (Vitamin B-12) (Vitamin B12) 2,500 Mcg Tablet, 1 TAB PO QAM 12/14/16 Multivitamin (MULTIVITAMINS) 1 Each Tablet, 1 EACH PO DAILY 03/25/16 Cholecalciferol (Vitamin D3) (VITAMIN D3) 1,000 Unit Capsule, 5000 UNIT PO QAM, CAPSULE 10/19/14 Trazodone Hcl (TRAZODONE HCL) 100 Mg Tablet, 100 MG PO QPM 10/19/14 Quetiapine Fumarate (SEROQUEL) 50 Mg Tablet, 50 MG PO QPM 10/19/14 Discontinued Reported Medications Aripiprazole (ABILIFY) 5 Mg Tablet, 5 MG PO QDAY, #10 TAB 08/14/17 Discontinued Scripts Azithromycin (AZITHROMYCIN) 500 Mg Tablet, 1 TAB PO QDAY, #3 TAB 0 Refills Prov:PERFECTO BARILLAS MD 10/03/17 Reviewed Nurses Notes: Yes (LUIS TORRES MD) Hx Smoking: Yes (in 20s and 30s) Smoking Status: Former Smoker Exposure to Second Hand Smoke?: Yes Hx Substance Use Disorder: No Hx Alcohol Use: No (LUIS TORRES MD) Constitutional Vital Sign - Last 24 Hours 10/07/18 10/07/18 10/07/18 10/07/18 21:28 21:37 21:46 21:51 Temp 98.7 Pulse 50 47 Resp 18 13 B/P (MAP) 78/52 74/45 (55) Pulse Ox 90 92 O2 Delivery Room Air O2 Flow Rate 2.0 10/07/18 10/07/18 10/07/18 10/07/18 22:00 22:01 22:16 22:30 Pulse 47 47 Resp 19 15 B/P (MAP) 74/48 (57) 85/52 (63) Pulse Ox 96 96 10/07/18 10/07/18 10/07/18 10/07/18 22:31 22:46 22:51 23:00 Pulse 47 50 46 Resp 9 19 20 B/P (MAP) 93/50 (64) Pulse Ox 96 94 98 10/07/18 10/07/18 10/07/18 10/07/18 23:06 23:11 23:26 23:30 Pulse 47 48 48 Resp 11 13 25 B/P (MAP) 95/56 (69) Pulse Ox 96 95 96 10/07/18 10/07/18 10/08/18 10/08/18 23:41 23:56 00:00 00:11 Pulse 50 46 46 Resp 15 19 18 B/P (MAP) 91/57 (68) Pulse Ox 94 96 95 10/08/18 10/08/18 10/08/18 10/08/18 00:30 00:41 00:56 01:04 Pulse 45 ??? Resp 19 16 B/P (MAP) 98/58 (71) 119/61 (80) Pulse Ox 96 89 10/08/18 10/08/18 10/08/18 10/08/18 01:16 01:31 01:46 02:01 Pulse 46 47 46 44 Resp 17 Pulse Ox 97 97 98 98 10/08/18 10/08/18 10/08/18 10/08/18 02:06 02:36 02:41 02:56 Pulse 44 52 46 46 Resp 17 15 18 16 B/P (MAP) 119/61 (80) Pulse Ox 98 86 95 10/08/18 10/08/18 10/08/1819 03:11 03:26 03:41 03:56 Pulse 47 47 46 47 Resp 18 21 16 16 Pulse Ox 94 95 93 94 10/08/18 10/08/18 10/08/18 10/08/18 04:11 04:15 04:25 04:35 Pulse 50 46 46 Resp 12 16 B/P (MAP) 90/47 (61) Pulse Ox 89 90 10/08/18 10/08/18 10/08/18 10/08/18 04:40 04:45 04:50 04:55 Pulse 43 44 44 42 Resp 22 17 14 13 Pulse Ox 95 95 96 96 10/08/18 10/08/18 10/08/18 10/08/18 05:00 05:05 05:10 05:15 Pulse 47 ??? 46 42 Resp 36 13 17 16 B/P (MAP) 120/79 (93) Pulse Ox 94 88 96 98 10/08/18 10/08/18 10/08/18 10/08/18 05:20 05:25 05:30 05:35 Pulse 42 41 42 40 Resp 18 15 16 14 Pulse Ox 98 99 99 99 10/08/18 10/08/18 10/08/18 10/08/18 05:40 05:45 05:50 06:00 Pulse 42 42 ??? 43 Resp 15 11 15 B/P (MAP) 121/61 (81) Pulse Ox 99 90 87 10/08/18 10/08/18 10/08/18 10/08/18 06:05 06:10 06:15 06:20 Pulse 44 42 43 41 Resp 15 0 12 16 Pulse Ox 96 96 95 95 10/08/18 10/08/18 10/08/18 06:50 07:00 07:20 Pulse 45 45 Resp 15 17 B/P (MAP) 98/60 (73) Pulse Ox 97 97 Intake and Output 10/07/18 10/07/18 10/08/18 15:00 23:00 07:00 Intake Total 1000 ml 1000 ml Balance 1000 ml 1000 ml (LEONARD MANNING DO) Physical Exam General Appearance: Alert, no acute distress. Oriented x4 at this time. No acute distress. Ill appearing. Eyes: Pupils are equal, round. No pallor, injection or icterus. Extraocular movements are intact ENT: Extraocular movements are dry. Otherwise normal oral mucosa. Posterior oropharynx with postnasal drainage and erythema but otherwise no hypertrophy. Nasal mucosa erythematous with mucous. Normal tympanic membranes and canals. Neck: Supple and non tender. Respiratory: Lungs with some rhonchi but no wheezing or rales. There are no retractions or accessory muscle use. Cardiovascular: Regular rate and rhythm. No murmurs, gallops or rubs. Normal capillary refill. No edema. Gastrointestinal: Abdomen is soft and non tender. Nondistended. Normal active bowel sounds. Neurological: Alert and oriented x3. Cranial nerves with eye exam as noted above. Tongue is midline, symmetric palate elevation. Mild right facial droop which looks consistent at this time with what she usually has. Normal sensation in the face.. No focal neurologic deficits in the extremities, generalized weakness, but equal. Skin: Warm and dry. No rashes. Musculoskeletal: Extremities are nontender. Full range of motion. No tenderness in palpation of the cervical, thoracic and lumbar spine. DIFFERENTIAL DIAGNOSIS: After history and physical exam, differential diagnosis was considered for a patient with flu like symptoms and evidence of dehydration, will check for infectious etiologies including urinary, pulmonary and viral/influenza. No signs of stroke at this time. (LUIS TORRES MD) Physical Exam Please see Dr. Torres note (LEONARD MANNING DO) Medical Decision Making Data Points Result Diagram: 10/08/18 0611 10/08/18 0611 Laboratory Hematology Test 10/07/18 21:30 10/07/18 22:45 10/08/18 06:11 Lactate 1.1 mmol/L (0.7-2.1) Total Bilirubin 0.4 mg/dl (0.2-1.3) Aspartate Amino Transf (AST/SGOT) 38 U/L (0-35) Alanine Aminotransferase (ALT/SGPT) 30 U/L (0-56) Alkaline Phosphatase 72 U/L (0-126) Total Protein 5.8 g/dl (6.3-8.2) Albumin 3.3 g/dl (3.5-5.0) Influenza Virus Type A (PCR) Positive (NEGATIVE) Influenza Virus Type B (PCR) Negative (NEGATIVE) Urine Color Yellow Urine Clarity Clear Urine pH 5.0 pH (4.8-9.5) Urine Specific [place] 1.023 Urine Protein Negative mg/dL (NEGATIVE) Urine Glucose (UA) Negative mg/dL (NEGATIVE) Urine Ketones Negative mg/dL (NEGATIVE) Urine Blood Negative (NEGATIVE) Urine Nitrite Negative (NEGATIVE) Urine Bilirubin Negative (NEGATIVE) Urine Urobilinogen 2.0 mg/dL (0.2-1.9) Urine Leukocyte Esterase Negative (NEGATIVE) Urine RBC None /HPF (0-2/HPF) Urine WBC None /HPF (0-5/HPF) Urine Squamous Epithelial Cells None /LPF (NONE-FEW) Urine Bacteria Few /HPF (NONE-FEW) Urine Hyaline Casts Few /LPF (NONE-FEW) Urine Mucus Few /HPF (NONE-FEW) Red Blood Count 4.22 M/uL (4.17-5.56) Mean Corpuscular Volume 89.1 fL (80.0-96.0) Mean Corpuscular Hemoglobin 29.4 pg (26.0-33.0) Mean Corpuscular Hemoglobin Concent 33.0 g/dL (32.0-36.0) Red Cell Distribution Width 15.5 % (11.5-14.5) Mean Platelet Volume 7.6 fL (7.2-11.1) Neutrophils (%) (Auto) 44.4 % (39.4-72.5) Lymphocytes (%) (Auto) 41.8 % (17.6-49.6) Monocytes (%) (Auto) 12.6 % (4.1-12.4) Eosinophils (%) (Auto) 0.2 % (0.4-6.7) Basophils (%) (Auto) 1.0 % (0.3-1.4) Nucleated RBC Relative Count (auto) 0.2 /100WBC Neutrophils # (Auto) 1.0 K/uL (2.0-7.4) Lymphocytes # (Auto) 0.9 K/uL (1.3-3.6) Monocytes # (Auto) 0.3 K/uL (0.3-1.0) Eosinophils # (Auto) 0.0 K/uL (0.0-0.5) Basophils # (Auto) 0.0 K/uL (0.0-0.1) Nucleated RBC Absolute Count (auto) 0.00 K/uL Sodium Level 138 mmol/L (137-145) Potassium Level 3.5 mmol/L (3.5-5.0) Chloride Level 108 mmol/L (98-107) Carbon Dioxide Level 24 mmol/L (22-31) Blood Urea Nitrogen 24 mg/dl (7-18) Creatinine 1.20 mg/dl (0.52-1.04) Glomerular Filtration Rate Calc 43.1 Random Glucose 83 mg/dl (75-110) Calcium Level 8.0 mg/dl (8.4-10.2) Chemistry Test 10/07/18 21:30 10/07/18 22:45 10/08/18 06:11 Lactate 1.1 mmol/L (0.7-2.1) Total Bilirubin 0.4 mg/dl (0.2-1.3) Aspartate Amino Transf (AST/SGOT) 38 U/L (0-35) Alanine Aminotransferase (ALT/SGPT) 30 U/L (0-56) Alkaline Phosphatase 72 U/L (0-126) Total Protein 5.8 g/dl (6.3-8.2) Albumin 3.3 g/dl (3.5-5.0) Influenza Virus Type A (PCR) Positive (NEGATIVE) Influenza Virus Type B (PCR) Negative (NEGATIVE) Urine Color Yellow Urine Clarity Clear Urine pH 5.0 pH (4.8-9.5) Urine Specific [place] 1.023 Urine Protein Negative mg/dL (NEGATIVE) Urine Glucose (UA) Negative mg/dL (NEGATIVE) Urine Ketones Negative mg/dL (NEGATIVE) Urine Blood Negative (NEGATIVE) Urine Nitrite Negative (NEGATIVE) Urine Bilirubin Negative (NEGATIVE) Urine Urobilinogen 2.0 mg/dL (0.2-1.9) Urine Leukocyte Esterase Negative (NEGATIVE) Urine RBC None /HPF (0-2/HPF) Urine WBC None /HPF (0-5/HPF) Urine Squamous Epithelial Cells None /LPF (NONE-FEW) Urine Bacteria Few /HPF (NONE-FEW) Urine Hyaline Casts Few /LPF (NONE-FEW) Urine Mucus Few /HPF (NONE-FEW) White Blood Count 2.2 k/uL (4.5-11.0) Red Blood Count 4.22 M/uL (4.17-5.56) Hemoglobin 12.4 g/dL (12.0-16.0) Hematocrit 37.6 % (34.0-47.0) Mean Corpuscular Volume 89.1 fL (80.0-96.0) Mean Corpuscular Hemoglobin 29.4 pg (26.0-33.0) Mean Corpuscular Hemoglobin Concent 33.0 g/dL (32.0-36.0) Red Cell Distribution Width 15.5 % (11.5-14.5) Platelet Count 156 K/uL (150-450) Mean Platelet Volume 7.6 fL (7.2-11.1) Neutrophils (%) (Auto) 44.4 % (39.4-72.5) Lymphocytes (%) (Auto) 41.8 % (17.6-49.6) Monocytes (%) (Auto) 12.6 % (4.1-12.4) Eosinophils (%) (Auto) 0.2 % (0.4-6.7) Basophils (%) (Auto) 1.0 % (0.3-1.4) Nucleated RBC Relative Count (auto) 0.2 /100WBC Neutrophils # (Auto) 1.0 K/uL (2.0-7.4) Lymphocytes # (Auto) 0.9 K/uL (1.3-3.6) Monocytes # (Auto) 0.3 K/uL (0.3-1.0) Eosinophils # (Auto) 0.0 K/uL (0.0-0.5) Basophils # (Auto) 0.0 K/uL (0.0-0.1) Nucleated RBC Absolute Count (auto) 0.00 K/uL Glomerular Filtration Rate Calc 43.1 Calcium Level 8.0 mg/dl (8.4-10.2) Urinalysis Test 10/07/18 22:45 Urine Color Yellow Urine Clarity Clear Urine pH 5.0 pH (4.8-9.5) Urine Specific [place] 1.023 Urine Protein Negative mg/dL (NEGATIVE) Urine Glucose (UA) Negative mg/dL (NEGATIVE) Urine Ketones Negative mg/dL (NEGATIVE) Urine Blood Negative (NEGATIVE) Urine Nitrite Negative (NEGATIVE) Urine Bilirubin Negative (NEGATIVE) Urine Urobilinogen 2.0 mg/dL (0.2-1.9) Urine Leukocyte Esterase Negative (NEGATIVE) Urine RBC None /HPF (0-2/HPF) Urine WBC None /HPF (0-5/HPF) Urine Squamous Epithelial Cells None /LPF (NONE-FEW) Urine Bacteria Few /HPF (NONE-FEW) Urine Hyaline Casts Few /LPF (NONE-FEW) Urine Mucus Few /HPF (NONE-FEW) (LEONARD MANNING DO) EKG/Imaging Imaging AP CHEST 10/07/2018 10:01 PM. INDICATION: Fever, weakness, confusion, cough. COMPARISON: 05/19/[address], 09/30/2017 radiograph. FINDINGS: Lungs are well-expanded. Small patchy opacification over the right costophrenic sulcus. No pleural effusion or pneumothorax. Cardiac silhouette is mildly enlarged. IMPRESSION: 1. Patchy opacification over the right costophrenic sulcus could represent infection, atelectasis or aspiration. Consider 3 month follow-up to exclude underlying lesion. 2. Suspected mild cardiomegaly Report Dictated By: Jerson Moya MD at 10/07/2018 10:22 PM (LUIS TORRES MD) ED Course/Re-evaluation Clinical Indication for ER IV: Hydration, IV Access ED Course Patient was dehydrated. Influenza is positive. No sign of x-ray of pneumonia. No sign of urinary infection. Electrolytes otherwise negative. Hydration was started and the patient was also given Tamiflu. No beds available in the hospital so we'll keep her here in the ER tonight to hydrate 10 see how she is doing and will reevaluate in the morning to see if she still needs to be admitted or if we can discharge her home. (LUIS TORRES MD) ED Course I assumed patient care from Dr. Torres at shift change at 7:00. I reexamined the patient shortly after shift change and patient was well-appearing, alert and oriented. Patient was discharged in stable condition. Return precautions provided. Decision to Disposition Date: Oct 08, 2018 Decision to Disposition Time: 09:07 (LEONARD MANNING DO) Depart Departure Latest Vital Signs Vital Signs Date Time Temp Pulse Resp B/P (MAP) Pulse Ox O2 Delivery O2 Flow Rate FiO2 10/08/18 07:20 45 17 97 10/08/18 07:00 98/60 (73) 10/07/18 21:37 2.0 10/07/18 21:28 98.7 Room Air (LEONARD MANNING DO) Impression: Primary Impression: Influenza A Condition: Improved Disposition: HOME OR SELF-CARE Referrals: DHARA,KATHLEEN C[facility] [employer] [facility]ER (PCP) New Scripts Oseltamivir Phosphate (TAMIFLU) 75 Mg Cap 75 MG FT BID for 5 Days, #10 CAP Prov: LEONARD MANNING DO 10/08/18 Patient Instructions: Influenza (DC) Additional Instructions: Please drink plenty of water. You may take 1 tablet of Tamiflu twice daily for 5 days. Please treat fevers with ibuprofen or Tylenol as needed. Please follow-up with your family doctor in the next 24-48 hours. Please return immediately if you develop shortness of breath, chest pains, inability to keep down food or fluids. LUIS TORRES MD Oct 07, 2018 21:38 LEONARD MANNING DO Oct 08, 2018 08:43
[2018-10-07 22:26] LABS: PLATELET COUNT, AUTOMATED 174 K/uL (150-450)
--- NOTE | 2018-10-07 22:30 | RADIOLOGY IMAGING REPORT ---
FACILITY: [facility] PATIENT NAME: Meri Velazquez : 1935 MR: [id number] V: [id number] EXAM DATE: ORDERING PHYSICIAN: LUIS SOLIS TECHNOLOGIST: Location: [facility] [place] Patient: Meri Velazquez : 1935 Visit/Account:[id number] Date of Sevice: 10/07/2018 AP CHEST 10/07/2018 10:01 PM. INDICATION: Fever, weakness, confusion, cough. COMPARISON: 05/19/[address], 09/30/2017 radiograph. FINDINGS: Lungs are well-expanded. Small patchy opacification over the right costophrenic sulcus. No pleural e ffusion or pneumothorax. Cardiac silhouette is mildly enlarged. IMPRESSION: 1. Patchy opacification over the right costophrenic sulcus could represent infection, atelectasis or aspiration. Consider 3 month follow-up to exclude underlying lesion. 2. Suspected mild cardiomegaly Report Dictated By: Jerson Moya MD at 10/07/2018 10:22 PM Report E-Signed By: Jerson Moya MD at 10/07/2018 10:25 PM WSN:[id number]
[2018-10-08] MEDS ORDERED: OSELTAMIVIR PHOS 75 MG CAP PO ONE (00:10)
[2018-10-08] MEDS ORDERED: NS(*) 0.9% 1000 ML BAG 1,000 ML IV ONE (00:10)
[2018-10-08] MEDS ORDERED: EMS NS 0.9%(*) 1000 ML BAG 1,000 ML IV ONE (00:45)
[2018-10-08] MEDS ORDERED: ACETAMINOPHEN 500 MG TAB PO ONE (02:40)
[2018-10-08] MEDS ORDERED: ACETAMINOPHEN 500 MG TAB ONE (02:43)
[2018-10-08 06:26] LABS: PLATELET COUNT, AUTOMATED 156 K/uL (150-450)
[2018-10-08 09:00] VITALS: BP 105/55
[2018-10-08] MEDS ORDERED: OSE75 FT (09:15)
== END 2018-10-08 11:15 | disposition home or self-care (01) ==
LOC: ER 21:32
DX: J11.1 Influenza due to unidentified influenza virus with other respiratory manifestations (principal)
CPT/HCPCS: 36415; 71045; 81001; 83605; 85025; 87040; 87088; 87502; 96360; 96361; 99284; A4353; A9270; J7030; 82040; 82247; 82310; 82374; 82435; 82565; 82947; 84075; 84132; 84155; 84295; 84450; 84460; 84520

== ENCOUNTER → 2018-10-07 | Outpatient (CLI) | payer MEDICARE, OTHER ==
[2016-12-15 14:54] VITALS: BMI 24.7
[~2018-10-07] MED LIST changes: +OSE75 FT
== END ==
LOC: AMB 21:02
PROVIDERS: ATTEND Nurse Practitioner
DX: R42 Dizziness and giddiness (principal); R53.1 Weakness; R50.9 Fever, unspecified; R11.2 Nausea with vomiting, unspecified
CPT/HCPCS: A0425; A0427

== ENCOUNTER 2018-10-15 09:26 | Inpatient (IN) | payer MEDICARE, OTHER ==
[~2018-10-15] VITALS: Ht 162.6 cm; Wt 63.6 kg
[~2018-10-15 09:26] MED LIST changes: +OSE75 FT
[2018-10-15] MEDS ORDERED: NS(*) 0.9% 1000 ML BAG 1,000 ML IV ONE (09:30)
--- NOTE | 2018-10-15 09:30 | ER Report ---
History and Physical Time Seen By MD: 09:30 HPI/ROS CHIEF COMPLAINT: Cough HISTORY OF PRESENT ILLNESS: Patient was seen on 10/07/2018 for flulike symptoms including fever, weakness and cough. Patient was diagnosed as influenza positive. Despite a week of symptoms the patient was started on Tamiflu. Patient was kept in the emergency department for hydration and kept until the morning and was discharged in stable condition with instructions to return if symptoms worsened. Patient states that her symptoms did improve but over the past few da ys she's developed a productive cough that is noted for yellow phlegm coded with what looks like "coffee grounds". Patient states that she feels very tired and short of breath. She denies any chest pain or abdominal pain. She is unsure if she's had a fever at home as she does not have a thermometer. Because of her symptoms she is brought to the emergency department for further evaluation. REVIEW OF SYSTEMS: Constitutional: No fever, no chills. Eyes: No discharge. ENT: No sore throat. Cardiovascular: No chest pain, no palpitations. Respiratory: Cough productive of yellow sputum with, "coffee grounds" Gastrointestinal: No abdominal pain, no vomiting. Genitourinary: No hematuria. Musculoskeletal: No back pain. Skin: No rashes. Neurological: No headache. Allergies: Coded Allergies: propoxyphene (Verified Allergy, Mild, vomiting, 10/07/18) Uncoded Allergies: CLEANSERS (Allergy, Mild, 11/24/07) HAYFEVER (Allergy, Mild, UNKNOWN, 01/01/12) PERFUME (Allergy, Unknown, 03/09/14) Home Meds Active Scripts Magnesium Oxide (MAG-OXIDE) 400 Mg Tablet, 400 MG PO BID, #60 TAB Prov:VENTURA BARILLAS MD 08/21/17 Melatonin (MELATONIN) 5 Mg Tablet, 5 MG PO HS, #30 TAB Prov:VENTURA BARILLAS MD 04/03/16 Reported Medications Alprazolam 0.5 Mg Tab (ALPRAZOLAM 0.5 MG TAB) 0.5 Mg Tablet, 0.5 MG PO HS PRN for INSOMNIA 10/15/18 Apixaban (ELIQUIS) 2.5 Mg Tablet, 2.5 MG PO BID 07/28/18 Lisinopril (LISINOPRIL) 10 Mg Tablet, 10 MG PO QDAY, TAB 09/29/17 Duloxetine Hcl (CYMBALTA) 60 Mg Capsule.dr, 60 MG PO QDAY, #5 CAP 08/14/17 Sumatriptan Succinate (SUMATRIPTAN SUCCINATE) 50 Mg Tablet, 50 MG PO ONCE PRN for HEADACHE, #5 TAB May repeat dose 1 time after 2 hours if needed. Do not exceed 200mg in 24 hours. 08/14/17 Omeprazole (OMEPRAZOLE) 40 Mg Capsule.dr, 40 MG PO QDAY PRN for REFLUX, CAP 08/14/17 Metoprolol Tartrate (METOPROLOL TARTRATE) 25 Mg Tablet, 25 MG PO BID, TAB 08/14/17 Cyanocobalamin (Vitamin B-12) (Vitamin B12) 2,500 Mcg Tablet, 1 TAB PO QAM 12/14/16 Multivitamin (MULTIVITAMINS) 1 Each Tablet, 1 EACH PO DAILY 03/25/16 Trazodone Hcl (TRAZODONE HCL) 100 Mg Tablet, 100 MG PO QPM 10/19/14 Quetiapine Fumarate (SEROQUEL) 50 Mg Tablet, 50 MG PO QPM 10/19/14 Discontinued Reported Medications Colestipol Hcl (COLESTIPOL HCL) 1 Gm Tablet, 1 GM PO HS for diarrhea 12/15/16 Cholecalciferol (Vitamin D3) (VITAMIN D3) 1,000 Unit Capsule, 5000 UNIT PO QAM, CAPSULE 10/19/14 Discontinued Scripts Oseltamivir Phosphate (TAMIFLU) 75 Mg Cap, 75 MG FT BID for 5 Days, #10 CAP Prov:LEONARD MANNING DO 10/08/18 Oxycodone Hcl 10 Mg Tab (OXYCODONE HCL 10 MG TAB) 10 Mg Tablet, 10 MG PO Q4H for PAIN, #20 TAB Prov:STACEY MCCLELLAN MD 08/02/18 Oxycodone Hcl 10 Mg Tab (OXYCODONE HCL 10 MG TAB) 10 Mg Tablet, 10 MG PO Q6H for 5 Days, #14 TAB Prov:MEGAN MCCLELLAN MD 07/28/18 Cefuroxime Axetil (CEFUROXIME) 500 Mg Tablet, 500 MG PO BID, #14 TAB Prov:PERFECTO BARILLAS MD 10/03/17 Past Medical/Surgical History Past medical history for paroxysmal atrial fibrillation, history of COPD, history of depression, history of cerebral meningioma, history of rheumatic heart disease, history of hip fracture, history of hypertension, history of recent diagnosis of influenza, history of appendectomy and cholecystectomy Hx Smoking: Yes (in 20s and 30s) Smoking Status: Former Smoker Exposure to Second Hand Smoke?: Yes Hx Substance Use Disorder: No Hx Alcohol Use: No Constitutional Vital Sign - Last 24 Hours 10/15/18 10/15/18 10/15/18 10/15/18 09:35 09:36 09:41 10:00 Temp 97.9 Pulse 80 Resp 20 B/P (MAP) 118/93 118/93 (101) Pulse Ox 85 92 O2 Delivery Room Air Nasal Cannula O2 Flow Rate 2.0 2.0 10/15/18 10/15/18 10/15/18 10/15/18 10:00 10:00 10:08 11:00 Pulse 69 66 70 65 Resp 17 17 17 B/P (MAP) 105/70 (82) 106/81 (89) Pulse Ox 97 96 Physical Exam General/Constitutional: Patient is awake, alert, ill-appearing but nontoxic, O2 sat on room air was 84% Head: Normocephalic and atraumatic. Eyes: Conjunctival clear, Pupils are equal and reactive to light.Sclera are clear and anicteric. Ears:External canals are clear. Tympanic membranes are clear with normal landmarks and light reflex. Nares: No rhinorrhea or bleeding. Turbinates are pink and moist. Oropharyngeal: Mucous membranes are moist. There is no pharyngeal erythema or exudate. There are no palatal petechiae. Uvula is midline and symmetrical. Neck: Supple, no adenopathy. Cardiovascular: Heart is regular rate and rhythm without audible murmurs, rubs or gallops. Pulmonary: Lungs are for scattered rhonchi throughout in wheeze with cough. Abdomen: Soft, nontender, no guarding or peritoneal signs. Extremities: No gross deformities, No peripheral cyanosis. Able to move all 4 extremities. Neuro: Alert and oriented X3, Skin: No rashes, skin is warm dry and well perfused. Medical Decision Making Data Points Result Diagram: 10/15/1852 10/15/1852 Laboratory Hematology Test 10/15/18 09:52 Red Blood Count 5.18 M/uL (4.17-5.56) Mean Corpuscular Volume 87.5 fL (80.0-96.0) Mean Corpuscular Hemoglobin 29.4 pg (26.0-33.0) Mean Corpuscular Hemoglobin Concent 33.6 g/dL (32.0-36.0) Red Cell Distribution Width 15.6 % (11.5-14.5) Mean Platelet Volume 7.7 fL (7.2-11.1) Neutrophils (%) (Auto) 79.4 % (39.4-72.5) Lymphocytes (%) (Auto) 11.2 % (17.6-49.6) Monocytes (%) (Auto) 8.8 % (4.1-12.4) Eosinophils (%) (Auto) 0.4 % (0.4-6.7) Basophils (%) (Auto) 0.2 % (0.3-1.4) Nucleated RBC Relative Count (auto) 0.0 /100WBC Neutrophils # (Auto) 7.0 K/uL (2.0-7.4) Lymphocytes # (Auto) 1.0 K/uL (1.3-3.6) Monocytes # (Auto) 0.8 K/uL (0.3-1.0) Eosinophils # (Auto) 0.0 K/uL (0.0-0.5) Basophils # (Auto) 0.0 K/uL (0.0-0.1) Nucleated RBC Absolute Count (auto) 0.00 K/uL Sodium Level 136 mmol/L (137-145) Potassium Level 3.6 mmol/L (3.5-5.0) Chloride Level 102 mmol/L (98-107) Carbon Dioxide Level 27 mmol/L (22-31) Blood Urea Nitrogen 24 mg/dl (7-18) Creatinine 0.80 mg/dl (0.52-1.04) Glomerular Filtration Rate Calc > 60.0 Random Glucose 120 mg/dl (75-110) Lactate 1.3 mmol/L (0.7-2.1) Calcium Level 9.0 mg/dl (8.4-10.2) Magnesium Level 1.7 mg/dl (1.7-2.2) Total Bilirubin 1.6 mg/dl (0.2-1.3) Aspartate Amino Transf (AST/SGOT) 24 U/L (0-35) Alanine Aminotransferase (ALT/SGPT) 25 U/L (0-56) Alkaline Phosphatase 94 U/L (0-126) Troponin I < 0.012 ng/ml Total Protein 6.6 g/dl (6.3-8.2) Albumin 3.7 g/dl (3.5-5.0) Chemistry Test 10/15/18 09:52 White Blood Count 8.8 k/uL (4.5-11.0) Red Blood Count 5.18 M/uL (4.17-5.56) Hemoglobin 15.2 g/dL (12.0-16.0) Hematocrit 45.3 % (34.0-47.0) Mean Corpuscular Volume 87.5 fL (80.0-96.0) Mean Corpuscular Hemoglobin 29.4 pg (26.0-33.0) Mean Corpuscular Hemoglobin Concent 33.6 g/dL (32.0-36.0) Red Cell Distribution Width 15.6 % (11.5-14.5) Platelet Count 251 K/uL (150-450) Mean Platelet Volume 7.7 fL (7.2-11.1) Neutrophils (%) (Auto) 79.4 % (39.4-72.5) Lymphocytes (%) (Auto) 11.2 % (17.6-49.6) Monocytes (%) (Auto) 8.8 % (4.1-12.4) Eosinophils (%) (Auto) 0.4 % (0.4-6.7) Basophils (%) (Auto) 0.2 % (0.3-1.4) Nucleated RBC Relative Count (auto) 0.0 /100WBC Neutrophils # (Auto) 7.0 K/uL (2.0-7.4) Lymphocytes # (Auto) 1.0 K/uL (1.3-3.6) Monocytes # (Auto) 0.8 K/uL (0.3-1.0) Eosinophils # (Auto) 0.0 K/uL (0.0-0.5) Basophils # (Auto) 0.0 K/uL (0.0-0.1) Nucleated RBC Absolute Count (auto) 0.00 K/uL Glomerular Filtration Rate Calc > 60.0 Lactate 1.3 mmol/L (0.7-2.1) Calcium Level 9.0 mg/dl (8.4-10.2) Magnesium Level 1.7 mg/dl (1.7-2.2) Total Bilirubin 1.6 mg/dl (0.2-1.3) Aspartate Amino Transf (AST/SGOT) 24 U/L (0-35) Alanine Aminotransferase (ALT/SGPT) 25 U/L (0-56) Alkaline Phosphatase 94 U/L (0-126) Troponin I < 0.012 ng/ml Total Protein 6.6 g/dl (6.3-8.2) Albumin 3.7 g/dl (3.5-5.0) Microbiology Microbiology Date/Time Source Procedure Growth Status 10/15/18 09:52 Blood Peripheral Draw Blood Culture - Preliminary NO GROWTH SO FAR, SET LATE. REINCUBATED Resulted EKG/Imaging EKG Interpretation EKG shows normal sinus rhythm with sinus arrhythmia there are some T-wave inversions in the inferior lateral leads compared to an prior EKG there is a change initially on the old EKG patient was in atrial fibrillation but no evidence of T-wave inversions noted Monitor Interpretation: Normal Sinus Rhythm ED Course/Re-evaluation Clinical Indication for ER IV: IV Access ED Course 10/15/2018 9:48:40 am patient with recent diagnosis of influenza and history of community-acquired pneumonia. Patient states that she did improve over the last week after her influenza diagnosis: The last few days she is developed a productive cough which is concerning for possible pneumonia. Plan will be IV, 1 L bolus of normal saline check CBC CMP blood cultures lactate EKG chest x-ray. 10/15/2018 11:00:03 am symptoms improved after breathing treatment. X-ray showing right lower lobe infiltrate that is developing. Case discussed with Dr. Dooley will admit Decision to Disposition Date: Oct 15, 2018 Decision to Disposition Time: 11:00 Depart Departure Latest Vital Signs Vital Signs Date Time Temp Pulse Resp B/P (MAP) Pulse Ox O2 Delivery O2 Flow Rate FiO2 10/15/18 11:00 65 17 106/81 (89) 96 10/15/18 10:00 Nasal Cannula 2.0 10/15/18 09:35 97.9 Impression: Primary Impression: Bacterial pneumonia Condition: Improved Disposition: Admitted from ER (to Dr Dooley) Referrals: KATHLEEN JULES (PCP) STACEY KENT MD Oct 15, 2018 09:30
[2018-10-15] MEDS ORDERED: ALBUTEROL/IPRATROPIUM 3 ML NEB NEB ONE (09:50)
[2018-10-15 10:05] LABS: PLATELET COUNT, AUTOMATED 251 K/uL (150-450)
--- NOTE | 2018-10-15 10:12 | EKG ---
FACILITY: [facility] PATIENT NAME: TREVOR MORIN : [id number] MR: [id number] V: [id number] EXAM DATE: ORDERING PHYSICIAN: STACEY KENT TECHNOLOGIST: Test Reason : Blood Pressure : / mmHG Vent. Rate : 066 BPM Atrial Rate : 066 BPM P-R Int : 154 ms QRS Dur : 076 ms QT Int : 388 ms P-R-T Axes : -09 -36 -26 degrees QTc Int : 406 ms Sinus rhythm with marked sinus arrhythmia Left axis deviation T wave abnormality, consider anterolateral ischemia and inferior ischemia Abnormal ECG When compared with ECG of 08-AUG-2017 09:31, Now with diffuse T inversion Sinus rhythm has replaced Atrial fibrillation Vent. rate has decreased BY 43 BPM Confirmed by JOE HAHN ([id number]) on 10/15/2018 2:21:35 PM Referred By: Confirmed By:JOE HAHN
--- NOTE | 2018-10-15 10:53 | RADIOLOGY IMAGING REPORT ---
[place] [facility] [place]IENT NAME: Meri Velazquez : 1935 MR: [id number] V: [id number] EXAM DATE: ORDERING PHYSICIAN: STACEY KENT TECHNOLOGIST: Location: [facility] - [place] Patient: Meri Velazquez : 1935 Visit/Account:[id number] Date of Sevice: 10/15/2018 Exam type: CHEST PA LAT History: Congestion Comparison: October 07, 2018. Findings: There is a subtle increased bronchovascular markings the right lung base. This could represent devel oping infiltrate and/or atelectasis. There is no evidence of overt pulmonary edema. The cardiac dustin houette is enlarged but unchanged. There is marked ectasia the thoracic aorta. Osteopenia visualize d bones again noted IMPRESSION: 1. Subtle increased bronchovascular markings the right lung base which could represent a developing infiltrate and/or atelectasis. Report Dictated By: Virginia Richter MD at 10/15/2018 10:46 AM Report E-Signed By: Virginia Richter MD at 10/15/2018 10:48 AM WSN:[id number]
[2018-10-15] MEDS ORDERED: cefTRIAXone 1 GM VIAL IVP ONE (10:55)
[2018-10-15] MEDS ORDERED: AZITHROMYCIN(*) 500 MG 500 MG in NS(*) 0.9% 250 ML BAG 250 ML IVPB ONE (10:55)
[2018-10-15] MEDS ORDERED: ALPR-448 PO (11:57)
[2018-10-15 12:15] VITALS: BP 140/82
[2018-10-15] MEDS ORDERED: NS(*) 0.9% 500 ML BAG 500 ML IV PRN (12:50)
[2018-10-15] MEDS: LEVOFLOXACIN/D5W 750 MG/150 ML 150 ML IVPB SCH ×2 (13:00→13:36)
[2018-10-15] MEDS ORDERED: PANTOPRAZOLE SOD 40 MG TABEC PO PRN (13:40)
[2018-10-15] MEDS ORDERED: LEVALBUTEROL 0.63 MG/3 ML NEB NEB PRN (13:40)
--- NOTE | 2018-10-15 13:59 | History & Physical ---
History of Present Illness Chief Complaint SOB, cough History of Present Illness She presented to the emergency department with complaints of cough, shortness of breath and fatigue. She reports she was diagnosed with influenza A 10/07/18 in the emergency department and went home with Tamiflu. She reports she did start to feel better, but shortness of breath and cough worsened. She was found to have to have right base infiltrate. She was recommended for admission. History Problems: (1) Paroxysmal atrial fibrillation Status: Chronic (2) Depression Status: Chronic (3) Essential hypertension Status: Chronic Home Meds Active Scripts Magnesium Oxide (MAG-OXIDE) 400 Mg Tablet, 400 MG PO BID, #60 TAB Prov:VENTURA BARILLAS MD 08/21/17 Melatonin (MELATONIN) 5 Mg Tablet, 5 MG PO HS, #30 TAB Prov:VENTURA BARILLAS MD 04/03/16 Reported Medications Alprazolam 0.5 Mg Tab (ALPRAZOLAM 0.5 MG TAB) 0.5 Mg Tablet, 0.5 MG PO HS PRN for INSOMNIA 10/15/18 Apixaban (ELIQUIS) 2.5 Mg Tablet, 2.5 MG PO BID 07/28/18 Lisinopril (LISINOPRIL) 10 Mg Tablet, 10 MG PO QDAY, TAB 09/29/17 Duloxetine Hcl (CYMBALTA) 60 Mg Capsule.dr, 60 MG PO QDAY, #5 CAP 08/14/17 Sumatriptan Succinate (SUMATRIPTAN SUCCINATE) 50 Mg Tablet, 50 MG PO ONCE PRN for HEADACHE, #5 TAB May repeat dose 1 time after 2 hours if needed. Do not exceed 200mg in 24 hours. 08/14/17 Omeprazole (OMEPRAZOLE) 40 Mg Capsule.dr, 40 MG PO QDAY PRN for REFLUX, CAP 08/14/17 Metoprolol Tartrate (METOPROLOL TARTRATE) 25 Mg Tablet, 25 MG PO BID, TAB 08/14/17 Cyanocobalamin (Vitamin B-12) (Vitamin B12) 2,500 Mcg Tablet, 1 TAB PO QAM 12/14/16 Multivitamin (MULTIVITAMINS) 1 Each Tablet, 1 EACH PO DAILY 03/25/16 Trazodone Hcl (TRAZODONE HCL) 100 Mg Tablet, 100 MG PO QPM 10/19/14 Quetiapine Fumarate (SEROQUEL) 50 Mg Tablet, 50 MG PO QPM 10/19/14 Discontinued Reported Medications Colestipol Hcl (COLESTIPOL HCL) 1 Gm Tablet, 1 GM PO HS for diarrhea 12/15/16 Cholecalciferol (Vitamin D3) (VITAMIN D3) 1,000 Unit Capsule, 5000 UNIT PO QAM, CAPSULE 10/19/14 Discontinued Scripts Oseltamivir Phosphate (TAMIFLU) 75 Mg Cap, 75 MG FT BID for 5 Days, #10 CAP Prov:LEONARD MANNING DO 10/08/18 Oxycodone Hcl 10 Mg Tab (OXYCODONE HCL 10 MG TAB) 10 Mg Tablet, 10 MG PO Q4H for PAIN, #20 TAB Prov:STACEY MCCLELLAN MD 08/02/18 Oxycodone Hcl 10 Mg Tab (OXYCODONE HCL 10 MG TAB) 10 Mg Tablet, 10 MG PO Q6H for 5 Days, #14 TAB Prov:MEGAN MCCLELLAN MD 07/28/18 Cefuroxime Axetil (CEFUROXIME) 500 Mg Tablet, 500 MG PO BID, #14 TAB Prov:PERFECTO BARILLAS MD 10/03/17 Allergies: Coded Allergies: propoxyphene (Verified Allergy, Mild, vomiting, 10/07/18) Uncoded Allergies: CLEANSERS (Allergy, Mild, 11/24/07) HAYFEVER (Allergy, Mild, UNKNOWN, 01/01/12) PERFUME (Allergy, Unknown, 03/09/14) Patient History: Colon cancer Hx Smoking: Yes (in 20s and 30s) Smoking Status: Former Smoker Exposure to Second Hand Smoke?: Yes Caffeine Intake: Tea Caffeine/Cups Per Day: Very little Hx Alcohol Use: No Hx Substance Use Disorder: No Social Drug Use: Never Review of Systems All Systems Reviewed/Normal: Yes, Except as Noted Respiratory: Shortness of Breath, Cough Exam Vital Signs Vital Signs Date Time Temp Pulse Resp B/P (MAP) Pulse Ox O2 Delivery O2 Flow Rate FiO2 10/15/18 11:00 65 17 106/81 (89) 96 10/15/18 10:00 Nasal Cannula 2.0 10/15/18 09:35 97.9 General Appearance: Alert, Awake, No Acute Distress, Afebrile Neuro: No Gross deficits Cardiovascular: Regular Rate and Rhythm Respiratory: No Respiratory Distress, Other (diminished to bilateral bases) GI: Abd Soft and Non-Tender Extremities: Warm, Perfused; No Edema Psych: Alert & Oriented X3, Appropriate Mood & Affect Medical Decision Making Data Points Result Diagram: 10/15/1895110/15/18951 EKG / Imaging EKG Interpretation EKG reviewed from ER visit. Imaging FACILITY: [facility] PATIENT NAME: Meri Velazquez : 1935 MR: [id number] V: [id number] EXAM DATE: ORDERING PHYSICIAN: STACEY KENT TECHNOLOGIST: Location: [facility] - [place] Patient: Meri Velazquez : 1935 Visit/Account:[id number] Date of Sevice: 10/15/2018 Exam type: CHEST PA LAT History: Congestion Comparison: October 07, 2018. Findings: There is a subtle increased bronchovascular markings the right lung base. This could represent developing infiltrate and/or atelectasis. There is no evidence of overt pulmonary edema. The cardiac silhouette is enlarged but unchanged. There is marked ectasia the thoracic aorta. Osteopenia visualized bones again noted IMPRESSION: 1. Subtle increased bronchovascular markings the right lung base which could re present a developing infiltrate and/or atelectasis. Report Dictated By: Virginia Richter MD at 10/15/2018 10:46 AM Report E-Signed By: Virginia Richter MD at 10/15/2018 10:48 AM Assessment and Plan Problems: (1) Bacterial pneumonia Status: Acute Assessment & Plan: Likely secondary infection from Influenza A (dx 10/07/18). CXR shows infiltrate to right base. She will be placed on Azithromycin and Rocephin. She will receive as needed nebulizers, cough syrup. (2) Paroxysmal atrial fibrillation Status: Chronic Assessment & Plan: She is on chronic treatment with Eliquis and Metoprolol. Metoprolol started with hold parameters. (3) Essential hypertension Status: Chronic Assessment & Plan: She is on chronic treatment with Lisinopril. This was restarted with hold parameters. (4) Depression Status: Chronic Assessment & Plan: She is on chronic treatment with Seroquel and Trazodone. Continue. Venous Thromboembolism Antithrombotics Is Pt On Any Antithrombotics?: Yes Exam Sepsis Risk: No Definite Risk JULI GUPTA FINANCIAL SERVICES ASSISTANT Oct 15, 2018 13:59
[2018-10-15] MEDS ORDERED: guaiFENesin SYRP 100MG/5ML UDC PO PRN (14:00)
[2018-10-15 15:56] VITALS: BP 108/84
[2018-10-15] MEDS ORDERED: GUAIFENESIN/DEXTROMETHORPHAN 5 ML PO PRN (18:10)
[2018-10-15] MEDS ORDERED: BENZONATATE 100 MG CAP PO PRN (18:10)
[2018-10-15 20:50] VITALS: BP 173/98
[2018-10-15] MEDS: traZODone HCL 50 MG TAB PO SCH (20:59)
[2018-10-15] MEDS: QUEtiapine FUM 25 MG TAB PO SCH (20:59)
[2018-10-15] MEDS: METOPROLOL TART 50 MG TAB PO SCH (20:59)
[2018-10-15] MEDS: APIXABAN 2.5 MG TABLET PO SCH (21:00)
[2018-10-16 03:35] VITALS: BP 129/74
[2018-10-16] MEDS: METOPROLOL TART 50 MG TAB PO SCH ×2 (09:00→20:41)
[2018-10-16] MEDS: LISINOPRIL 10 MG TAB PO SCH (09:00)
--- NOTE | 2018-10-16 09:29 | Antimicrobial Stewardship ---
Antimicrobial Stewardship Empiricly appropriate: Yes (CAP s/p influenza A) Support empiric regimen: Yes (azithromycin/ceftriaxone) Approriate Cultures done: Yes (Blood Cx pending) Renal/Hepatic dosing: Yes (renal and hepatic function wnl (Tbili 1.6)) Determine cumulative duration: Today is day 2 of therapy Determine standard duration: 5 days Comment 83 yo F with a PMH of afib, COPD, rheumatic heart disease, hip fracture, HTN, influenza A who presented with SOB, weakness, cough s/p influenza A (tx with tamiflu) Tmax afebrile WBC 8.8 Lactate 1.3 Tbili 1.6 Troponin wnl Chest Xray RLL infiltrate Plan continue treatment for CAP with azithromycin and ceftriaxone x 5 days, today is day 2. Will watch closely, consider IV to PO tomorrow. Continue treatment with nebs. Diane Hernández, PharmD, BCOP DIANE HERNÁNDEZ Oct 16, 2018 09:29
[2018-10-16] MEDS: APIXABAN 2.5 MG TABLET PO SCH ×2 (09:44→20:40)
[2018-10-16] MEDS: DULoxetine HCL 30 MG CAPCR PO SCH (09:45)
[2018-10-16 09:46] VITALS: BP 115/81
[2018-10-16 10:15] VITALS: Ht 162.6 cm; Wt 63.6 kg
[2018-10-16] MEDS: cefTRIAXone 1 GM VIAL IVP SCH (10:35)
--- NOTE | 2018-10-16 10:35 | NUR ---
Occupational Therapy Impression SBA supine to sit. Independent LB dressing. Declined toileting. CGA ambulation x20ft with RW. SpO2 WNL on 2L. Seated up in chair at end of tx. Pt reports son and daughter plan to arrive in town today. Recommend discharge home with Homehealth services if family present to assist with IADLs as pt improves endurance. Pt agreeable with plan. Occupational Therapy Goals 1) Pt will be Modified Independent toileting. 2) Pt will be Independent grooming/hygiene seated. Patient's Goal
[2018-10-16] MEDS: AZITHROMYCIN(*) 500 MG 500 MG in NS(*) 0.9% 250 ML BAG 250 ML IVPB SCH (10:40)
--- NOTE | 2018-10-16 14:57 | NUR ---
Physical Therapy Impression PT subjective eval completed with chart review and pt interview. Pt notes that she was up in the chair for quite awhile earlier and does not feel the need to get up to the bathroom at this time. Pt agreeable to address goals and plans for discharge. Pt indicates that she feels the need to return home as soon as possible to care for her with alzheimers, but also notes that her children are coming in to town today to assist as well. Pt will need to be able to address 2 steps with rail and ambulate functional household distance prior to return home and may benefit from short-term subacute rehab or [facility] services depending on her progression over the weekend. Physical Therapy Goals 1. Pt to be modified indep with all bed mobility and supine<>Sit trnsfrs 2. Pt to be modified indep with sit to/from stand transfers 3. Pt to ambulate 100' with least restrictive device and VS in safe range 4. Pt to khurram up/down 2 steps with rail and SBA/CGA. Patient's Goals
[2018-10-16 15:37] VITALS: BP 162/113
[2018-10-16] MEDS: HYPROMELLOSE 0.4% LUB 15ML BTL OU PRN (15:42)
--- NOTE | 2018-10-16 15:46 | Hospitalist Progress Note ---
Subjective Progress Notes Subjective The patient states she is less short of breath today but still feels weak. Physical Exam Vital Signs Date Time Temp Pulse Resp B/P (MAP) Pulse Ox O2 Delivery O2 Flow Rate FiO2 10/16/18 15:37 97.6 88 16 162/113 (129) 92 Nasal Cannula 2.0 Intake and Output 10/16/18 06:59 Intake Total 1200 ml Balance 1200 ml Intake Oral 200 ml IV Total 1000 ml # Voids 2 General Appearance: Alert, Awake, No Acute Distress Cardiovascular: Regular Rate and Rhythm, No Edema Respiratory: Other (Crackles, lower right lung field.) GI: Soft and Non-Tender Extremities: Warm, Perfused Psych: Appropriate Mood & Affect Result Diagram: 10/15/18 0952 10/15/18 09 Monitor Interpretation: Normal Sinus Rhythm Assessment and Plan Problems: (1) Bacterial pneumonia Status: Acute Assessment & Plan: Likely secondary to infection from Influenza A (dx 10/07/18). CXR shows infiltrate on right base. She has been placed on Azithromycin and Rocephin. She is receiving as needed nebulizers, cough syrup. (2) Paroxysmal atrial fibrillation Status: Chronic Assessment & Plan: She is on chronic treatment with Eliquis and Metoprolol. Metoprolol started with hold parameters. (3) Essential hypertension Status: Chronic Assessment & Plan: She is on chronic treatment with Lisinopril. This was restarted with hold parameters. (4) Depression Status: Chronic Assessment & Plan: She is on chronic treatment with Seroquel and Trazodone. Continue. (5) Generalized weakness Time Spent on Plan of Care: < 30 min Exam Sepsis Risk: No Definite Risk VENTURA BARILLAS MD Oct 16, 2018 15:46
[2018-10-16 19:06] VITALS: BP 145/112
[2018-10-16 20:10] VITALS: BP 159/109
[2018-10-16] MEDS: traZODone HCL 50 MG TAB PO SCH (20:40)
[2018-10-16] MEDS: QUEtiapine FUM 25 MG TAB PO SCH (20:41)
[2018-10-16 22:11] VITALS: BP 131/91
[2018-10-17 03:45] VITALS: BP 143/89
[2018-10-17] MEDS: ACETAMINOPHEN 325 MG TAB PO PRN ×2 (03:52→18:38)
[2018-10-17 06:04] LABS: PLATELET COUNT, AUTOMATED 214 K/uL (150-450)
[2018-10-17 07:12] VITALS: BP 158/104
[2018-10-17] MEDS: DULoxetine HCL 30 MG CAPCR PO SCH (08:32)
[2018-10-17] MEDS: METOPROLOL TART 50 MG TAB PO SCH ×2 (08:32→20:58)
[2018-10-17] MEDS: LISINOPRIL 10 MG TAB PO SCH (08:33)
[2018-10-17] MEDS: HYPROMELLOSE 0.4% LUB 15ML BTL OU PRN (08:33)
[2018-10-17] MEDS: APIXABAN 2.5 MG TABLET PO SCH ×2 (08:33→20:58)
[2018-10-17] MEDS: cefTRIAXone 1 GM VIAL IVP SCH (11:15)
[2018-10-17] MEDS: AZITHROMYCIN(*) 500 MG 500 MG in NS(*) 0.9% 250 ML BAG 250 ML IVPB SCH (11:20)
[2018-10-17 11:26] VITALS: BP 179/86
--- NOTE | 2018-10-17 13:30 | Hospitalist Progress Note ---
Subjective Progress Notes Subjective She reports improvement in her strength. Cough is improving. Physical Exam Vital Signs Date Time Temp Pulse Resp B/P (MAP) Pulse Ox O2 Delivery O2 Flow Rate FiO2 10/17/18 11:26 97.5 58 16 179/86 (117) 92 Nasal Cannula 1.5 Intake and Output 10/17/18 06:59 Intake Total 880 ml Balance 880 ml Intake Oral 630 ml IV Total 250 ml # Voids 2 General Appearance: Alert, Awake, No Acute Distress Cardiovascular: Regular Rate and Rhythm Respiratory: Clear to Auscultation Extremities: No Edema Result Diagram: 10/17/18 0510 10/17/18 0510 Monitor Interpretation: Normal Sinus Rhythm Assessment and Plan Problems: (1) Bacterial pneumonia Status: Acute Assessment & Plan: Likely a secondary bacterial infection from Influenza A (dx 10/07/18). CXR shows infiltrate on right base. She has been placed on Azithromycin and Rocephin. She is receiving as needed nebulizers, cough syrup. Afebrile. (2) Generalized weakness Status: Acute Assessment & Plan: Secondary to pneumonia. She is working with therapy. She will have help at home from family for the next 2 weeks, but will likely need additional home health. (3) Paroxysmal atrial fibrillation Status: Chronic Assessment & Plan: She is on chronic treatment with Eliquis and Metoprolol. Metoprolol started with hold parameters. (4) Essential hypertension Status: Chronic Assessment & Plan: She is on chronic treatment with Lisinopril. This was restarted with hold parameters. (5) Depression Status: Chronic Assessment & Plan: She is on chronic treatment with Seroquel and Trazodone. Continue. Exam Sepsis Risk: No Definite Risk JOE HAHN MD Oct 17, 2018 13:30
--- NOTE | 2018-10-17 15:10 | NUR ---
Physical Therapy Impression Pt has met most goals with functional mobility, with the exception of 2 steps with rail. Pt did address one platform step in hallway with FWW and no difficulties, but does fatigue after ambulation of 200' with FWW. Pt on supplemental O2 throughout to maintain sats in safe range. Physical Therapy Goals 1. Pt to be modified indep with all bed mobility and supine<>Sit trnsfrs 2. Pt to be modified indep with sit to/from stand transfers 3. Pt to ambulate 100' with least restrictive device and VS in safe range 4. Pt to khurram up/down 2 steps with rail and SBA/CGA. Patient's Goals
[2018-10-17 15:14] VITALS: BP 167/90
[2018-10-17 19:23] VITALS: BP 160/95
[2018-10-17] MEDS: QUEtiapine FUM 25 MG TAB PO SCH (20:58)
[2018-10-17] MEDS: traZODone HCL 50 MG TAB PO SCH (20:58)
[2018-10-17] MEDS: MELATONIN 3 MG TAB PO SCH (22:58)
[2018-10-18] VITALS (7 sets, daily range): BP systolic 133–181; BP diastolic 77–112
[2018-10-18] MEDS: LISINOPRIL 10 MG TAB PO SCH (08:25)
[2018-10-18] MEDS: METOPROLOL TART 50 MG TAB PO SCH ×2 (08:25→21:39)
[2018-10-18] MEDS: DULoxetine HCL 30 MG CAPCR PO SCH (08:25)
[2018-10-18] MEDS: APIXABAN 2.5 MG TABLET PO SCH ×2 (08:25→21:39)
[2018-10-18] MEDS ORDERED: INFLUENZA VIRUS VAC 0.5ML SYR IM ONLY ONE (09:00)
[2018-10-18] MEDS ORDERED: SUMAtriptan SUCC 25MG TAB PO ONE (09:30)
[2018-10-18] MEDS: cefTRIAXone 1 GM VIAL IVP SCH (10:29)
[2018-10-18] MEDS: AZITHROMYCIN(*) 500 MG 500 MG in NS(*) 0.9% 250 ML BAG 250 ML IVPB SCH (10:34)
--- NOTE | 2018-10-18 11:47 | Hospitalist Progress Note ---
Subjective Progress Notes Subjective She c/o left sided migraine "just like I always have". She uses Imitrex 50mg for her HAs, which occur "usually every month or two". Physical Exam Vital Signs Date Time Temp Pulse Resp B/P (MAP) Pulse Ox O2 Delivery O2 Flow Rate FiO2 10/18/18 11:30 71 16 10/18/18 11:30 94 Nasal Cannula 1.0 10/18/18 08:30 97.6 162/101 (121) Intake and Output 10/18/18 07:00 Intake Total 740 ml Balance 740 ml Intake Oral 740 ml # Voids 4 General Appearance: Alert, Awake Neuro: No Gross deficits Eyes: PERRLA Cardiovascular: Regular Rate and Rhythm Respiratory: Other (Few rales at right base) GI: Soft and Non-Tender Extremities: Warm, Perfused Psych: Alert & Oriented X3 Result Diagram: 10/17/18 0510 10/17/18 0510 Monitor Interpretation: Normal Sinus Rhythm Assessment and Plan Problems: (1) Bacterial pneumonia Status: Acute Assessment & Plan: Likely a secondary bacterial infection related to Influenza A (diagnosed 10/07/18). CXR shows infiltrate at right base. She has been placed on IV Azithromycin and Rocephin. She is receiving supplemental oxygen, nebulizers, cough syrup. She is afebrile. (2) Generalized weakness Status: Acute Assessment & Plan: Secondary to pneumonia. She is working with therapy. She will have help at home from family for the next 2 weeks, but will likely need additional home health. (3) Paroxysmal atrial fibrillation Status: Chronic Assessment & Plan: She is on chronic treatment with Eliquis and Metoprolol. (4) Essential hypertension Status: Chronic Assessment & Plan: She is on chronic treatment with Lisinopril. This was restarted with hold parameters. (5) Depression Status: Chronic Assessment & Plan: She is on chronic treatment with Seroquel and Trazodone. Continue. Exam Sepsis Risk: No Definite Risk PERFECTO BARILLAS MD Oct 18, 2018 11:47
[2018-10-18] MEDS ORDERED: PROMETHAZINE 25 MG/ML 1 ML AMP IVP ONE (11:50)
[2018-10-18] MEDS: MELATONIN 3 MG TAB PO SCH (21:39)
[2018-10-18] MEDS: traZODone HCL 50 MG TAB PO SCH (21:40)
[2018-10-18] MEDS: QUEtiapine FUM 25 MG TAB PO SCH (21:40)
[2018-10-19 04:05] VITALS: BP 138/96
[2018-10-19 08:06] VITALS: BP 131/85
[2018-10-19] MEDS: DULoxetine HCL 30 MG CAPCR PO SCH (08:20)
[2018-10-19] MEDS: METOPROLOL TART 50 MG TAB PO SCH (08:20)
[2018-10-19] MEDS: APIXABAN 2.5 MG TABLET PO SCH (08:20)
[2018-10-19] MEDS: LISINOPRIL 10 MG TAB PO SCH (08:20)
[2018-10-19] MEDS ORDERED: CEF300 PO (10:42)
--- NOTE | 2018-10-19 10:46 | Hospitalist Depart ---
Discharge Summary Reason for Hosp/Final Diag: (1) Bacterial pneumonia Status: Acute Hospital Course & Plan: Likely a secondary bacterial infection related to Influenza A (diagnosed 10/07/18). CXR shows infiltrate at right base. She has been placed on IV Azithromycin and Rocephin. She is receiving supplemental oxygen, nebulizers, cough syrup. She is afebrile. She will be transitioned to Omnicef and oral azithromycin. She will follow up this week with PCP as previously scheduled. (2) Generalized weakness Status: Acute Hospital Course & Plan: Secondary to pneumonia. She is working with therapy. She will have help at home from family for the next 2 weeks. (3) Paroxysmal atrial fibrillation Status: Chronic Hospital Course & Plan: She is on chronic treatment with Eliquis and Metop rolol. (4) Essential hypertension Status: Chronic Hospital Course & Plan: She is on chronic treatment with Lisinopril. This was restarted with hold parameters. (5) Depression Status: Chronic Hospital Course & Plan: She is on chronic treatment with Seroquel and Trazo done. Continue. Departure Latest Vital Signs Vital Signs 10/19/18 10/19/18 04:05 08:06 Temp 98.4 Pulse 69 Resp 16 B/P (MAP) 131/85 (100) Pulse Ox 90 O2 Delivery Nasal Cannula O2 Flow Rate 1.0 Weight (Pounds): 140 Weight (Ounces): 2.0 Result Diagram: 10/17/18 0510 10/17/18 0510 Condition: Improved Discharge: Home, Self Care Discharge Instructions Home Meds Active Scripts Cefdinir 300 Mg Cap (OMNICEF 300 MG CAP (OR EQUIV)) 300 Mg Cap, 300 MG PO BID, #6 CAP Prov:JULI GUPTA C SOFTWARE ENGINEER 10/19/18 Magnesium Oxide (MAG-OXIDE) 400 Mg Tablet, 400 MG PO BID, #60 TAB Prov:VENTURA BARILLAS MD 08/21/17 Melatonin (MELATONIN) 5 Mg Tablet, 5 MG PO HS, #30 TAB Prov:VENTURA BARILLAS MD 04/03/16 Reported Medications Alprazolam 0.5 Mg Tab (ALPRAZOLAM 0.5 MG TAB) 0.5 Mg Tablet, 0.5 MG PO HS PRN for INSOMNIA 10/15/18 Apixaban (ELIQUIS) 2.5 Mg Tablet, 2.5 MG PO BID 07/28/18 Lisinopril (LISINOPRIL) 10 Mg Tablet, 10 MG PO QDAY, TAB 09/29/17 Duloxetine Hcl (CYMBALTA) 60 Mg Capsule.dr, 60 MG PO QDAY, #5 CAP 08/14/17 Sumatriptan Succinate (SUMATRIPTAN SUCCINATE) 50 Mg Tablet, 50 MG PO ONCE PRN for HEADACHE, #5 TAB May repeat dose 1 time after 2 hours if needed. Do not exceed 200mg in 24 hours. 08/14/17 Omeprazole (OMEPRAZOLE) 40 Mg Capsule.dr, 40 MG PO QDAY PRN for REFLUX, CAP 08/14/17 Metoprolol Tartrate (METOPROLOL TARTRATE) 25 Mg Tablet, 25 MG PO BID, TAB 08/14/17 Cyanocobalamin (Vitamin B-12) (Vitamin B12) 2,500 Mcg Tablet, 1 TAB PO QAM 12/14/16 Multivitamin (MULTIVITAMINS) 1 Each Tablet, 1 EACH PO DAILY 03/25/16 Trazodone Hcl (TRAZODONE HCL) 100 Mg Tablet, 100 MG PO QPM 10/19/14 Quetiapine Fumarate (SEROQUEL) 50 Mg Tablet, 50 MG PO QPM 10/19/14 Discontinued Reported Medications Colestipol Hcl (COLESTIPOL HCL) 1 Gm Tablet, 1 GM PO HS for diarrhea 12/15/16 Cholecalciferol (Vitamin D3) (VITAMIN D3) 1,000 Unit Capsule, 5000 UNIT PO QAM, CAPSULE 10/19/14 Discontinued Scripts Oseltamivir Phosphate (TAMIFLU) 75 Mg Cap, 75 MG FT BID for 5 Days, #10 CAP Prov:LEONARD MANNING DO 10/08/18 Oxycodone Hcl 10 Mg Tab (OXYCODONE HCL 10 MG TAB) 10 Mg Tablet, 10 MG PO Q4H for PAIN, #20 TAB Prov:STACEY MCCLELLAN MD 08/02/18 Oxycodone Hcl 10 Mg Tab (OXYCODONE HCL 10 MG TAB) 10 Mg Tablet, 10 MG PO Q6H for 5 Days, #14 TAB Prov:MEGAN MCCLELLAN MD 07/28/18 Cefuroxime Axetil (CEFUROXIME) 500 Mg Tablet, 500 MG PO BID, #14 TAB Prov:PERFECTO BARILLAS MD 10/03/17 Diet: Regular Activity: As Tolerated Special Instructions: Take antibiotics as prescribed. Follow up with PCP as scheduled. Copies to: KATHLEEN JULES ; Venous Thromboembolism Antithrombotics Is Pt On Any Antithrombotics?: Yes JULI GUPTA Oct 19, 2018 10:45
--- NOTE | 2018-10-19 10:50 | NUR ---
OCCUPATIONAL THERAPY Dressing Assistance: Independent Dressing Aid Required: None Bathing Assistance: N/T with OT Home Assessment: Not Completed Feeding Assistance: Independent Feeding Specialized Equipment: None Toilet Use: Independent Verbalizes Needs: Yes Understands Precautions: Yes Cooperative: Yes Family Teaching: No Occupational Therapy Comment:
[2018-10-19] MEDS ORDERED: CEFDINIR 300 MG CAP PO SCH (11:00)
[2018-10-19] MEDS ORDERED: AZITHROMYCIN 250 MG TAB PO ONE (11:01)
--- NOTE | 2018-10-19 12:26 | NUR ---
PHYSICAL THERAPY INFORMATION TRANSFER SHEET BED MOBILITY: Modified I/ AE TRANSFERS: Modified I/ AE GAIT: 200 ' with O2 RW and Modified I/ AE Weightbearing Status: STAIRS: 1 with Standby Assistance Verbal cues. EXERCISES: Verbalizes Needs: Yes Understands Directions Yes Cooperative: Yes Family Teaching: No Physical Therapy Comment:
== END 2018-10-19 13:50 | disposition home or self-care (01) | DRG 194 ==
LOC: ER 09:46 → MED 11:05
PROVIDERS: ADMIT Internal Medicine; ATTEND Internal Medicine
DX: J15.9 Unspecified bacterial pneumonia (principal); J44.0 Chronic obstructive pulmonary disease with (acute) lower respiratory infection; R53.1 Weakness; I48.0 Paroxysmal atrial fibrillation; I10 Essential (primary) hypertension; F32.9 Major depressive disorder, single episode, unspecified; I48.2 Chronic atrial fibrillation; Z88.8 Allergy status to other drugs, medicaments and biological substances; Z90.49 Acquired absence of other specified parts of digestive tract; Z90.710 Acquired absence of both cervix and uterus
CPT/HCPCS: 36415; 71046; 82040; 82247; 82310; 82374; 82435; 82565; 82947; 83605; 83735; 84075; 84132; 84155; 84295; 84450; 84460; 84484; 84520; 85025; 87040; 93005; 94640; 94667; 94668; 96365; 96375; 97161; 97165; 99284; J0456; J0696; J1956; J2550; J7030; J7040; J7050; J7614

== ENCOUNTER → 2018-11-10 | Outpatient (CLI) | payer MEDICARE, OTHER ==
[2018-10-16 10:15] VITALS: BMI 24.0
[~2018-11-10] MED LIST changes: +CEF300 PO
--- NOTE | 2018-11-10 14:27 | RADIOLOGY IMAGING REPORT ---
FACILITY: [facility] - [place] PATIENT NAME: Meri Velazquez : 1935 MR: [id number] V: [id number] EXAM DATE: ORDERING PHYSICIAN: KATHLEEN JULES TECHNOLOGIST: Location: [facility] - [place] Patient: Meri Velazquez : 1935 Visit/Account:[id number] Date of Sevice: 11/10/2018 EXAMINATION: Aorta ultrasound with duplex Doppler evaluation HISTORY: AAA COMPARISON: None. FINDINGS: Suprarenal abdominal aorta: 2.7 x 2.8 cm AP and transverse dimensions Superior infrarenal abdominal aorta: 1.8 x 1.8 cm AP and transverse dimensions Mid infrarenal abdominal aorta: 1.8 x 1.8 cm AP and transverse dimensions Inferior infrarenal abdominal aorta: 1.6 x 1.9 cm AP and transverse dimensions Proximal common iliac artery diameter: Left 13 mm; right 13 mm Aorta wall: Mild intimal thickening Aorta and proximal common iliac artery are patent by duplex Doppler ultrasound. IMPRESSION: No evidence of an abdominal aortic aneurysm. Report Dictated By: Virginia Richter MD at 11/10/2018 2:21 PM Report E-Signed By: Virginia Richter MD at 11/10/2018 2:22 PM WSN:[email or web address]
== END ==
LOC: US 01:19
PROVIDERS: ATTEND Nurse Practitioner Family
DX: I35.0 Nonrheumatic aortic (valve) stenosis (principal)
CPT/HCPCS: 93306; 93979

== ENCOUNTER → 2018-12-29 | Outpatient (CLI) | payer MEDICARE, OTHER ==
[2018-10-16 10:15] VITALS: BMI 24.0
[~2018-12-29] MED LIST changes: +MELA5TAB3 PO; -MELA5TAB6 PO; -RANI-366 PO; +RANI-54 PO
--- NOTE | 2018-12-29 16:54 | RADIOLOGY IMAGING REPORT ---
FACILITY: [facility] - [place] PATIENT NAME: Meri Velazquez : 1935 MR: [id number] V: [id number] EXAM DATE: ORDERING PHYSICIAN: KATHLEEN JULES TECHNOLOGIST: Location: [facility] - [place] Patient: Meri Velazquez : 1935 Visit/Account:[id number] Date of Sevice: 12/29/2018 US ABD LIMITED ULTRASOUND EXAMINATION: Abdominal ultrasound limited Additional Pertinent history: Abdominal pain/mass. COMPARISON STUDIES: Comparison made to a CT scan from 07/28/2018. FINDINGS: Focused examination at the area of concern demonstrates an apparent abdominal wall defect measuring a pproximately 7 mm in greatest dimension. Within the anterior abdominal subcutaneous tissues herniati ng through the defect is a heterogenous soft tissue mass measuring approximately 3.6 x 2.3 x 3.0 cm i n size. There appears to be a central collection of fluid within this which decreased in conspicuity with Valsalva. There was no obvious peristalsis noted within this soft tissue herniating mass. Thi s defect is anterior to the left lobe of the liver. When compared to this previous CT scan from 2018 there was an anterior abdominal wall defect of similar size. There was a herniation of apparent omentum/peritoneal fat of a similar size to the previous CT scan. There was no evidence of any flui d within this herniation herniation. IMPRESSION: 1. Apparent anterior abdominal wall defect with what appears to be herniation of peritoneal fat/ome ntum through the defect. Recommend CT scan of the abdomen to compared to the previous study of 019 to document any change in the overall appearance when compared to that CT scan. Report Dictated By: Eliu Motta MD at 12/29/2018 4:26 PM Report E-Signed By: Eliu Motta MD at 12/29/2018 4:49 PM WSN:[email or web address]
== END ==
LOC: US 00:53
PROVIDERS: ATTEND Nurse Practitioner Family
DX: R93.89 Abnormal findings on diagnostic imaging of other specified body structures (principal)
CPT/HCPCS: 76705

== ENCOUNTER 2019-02-09 00:20 | Day surgery (SDC) | payer MEDICARE, OTHER ==
[2018-10-16 10:15] VITALS: Ht 162.6 cm; Wt 60.3 kg
[~2019-02-09] VITALS: Ht 162.6 cm; Wt 60.3 kg
[~2019-02-09 00:20] MED LIST changes: +ALPR-429 PO; +CHOL10005 PO; +MELA10CA PO
[2019-02-09] MEDS ORDERED: FAMOTIDINE 20 MG TAB PO ONE (07:15)
[2019-02-09] MEDS ORDERED: MIDAZOLAM 2 MG/2 ML VIAL IVP PRN (07:30)
[2019-02-09] MEDS ORDERED: NORMOSOL R SOLN(*) 1000 ML BAG 1,000 ML IV PRN (07:30)
[2019-02-09] MEDS ORDERED: LIDOCAINE/SOD BICARB 8.4% SYR ID ONE (07:30)
[2019-02-09 07:39] VITALS: BP 158/108
[2019-02-09] MEDS ORDERED: ROPIVACAINE 0.2% 20 ML VIAL ONE (07:56)
[2019-02-09 08:00] LABS: PLATELET COUNT, AUTOMATED 229 K/uL (150-450)
[2019-02-09] MEDS ORDERED: ceFAZolin(*) 2GM/D5W 50ML 50 ML IVPB ONE (08:00)
--- NOTE | 2019-02-09 08:05 | NUR ---
Discussed ancef dose with cara Hernandez to proceed with Ancef 2 grams IV prior to surgery.
[2019-02-09] MEDS ORDERED: BUPIVACAINE/EPI 0.5% 50ML VIAL INFIL ONE (08:06)
[2019-02-09] MEDS ORDERED: fentaNYL CITR 100 MCG/2 ML AMP ONE ×3 (09:04→10:38)
[2019-02-09] MEDS ORDERED: hydrALAZINE HCL 20 MG/ML VIAL ONE (09:54)
[2019-02-09] MEDS ORDERED: DEXAMETHASONE SOD PHOS 10MG/ML ONE (09:58)
[2019-02-09] MEDS ORDERED: ONDANSETRON 4 MG/2 ML VIAL ONE (09:58)
[2019-02-09] MEDS ORDERED: HYDR-653 PO (10:19)
--- NOTE | 2019-02-09 10:22 | Short(Outpt) Discharge Summary ---
Discharge Summary Reason for Hosp/Final Diag: (1) Ventral hernia Hospital Course & Plan: pt presented for ventral hernia repair. she tolerated the procedure well and will be discharged home when criteria met. Departure Discharge to: Home Discharge Instructions Home Meds Active Scripts Hydrocodone Bit/Acetaminophen (NORCO 5-325 TABLET) 1 Each Tablet, 1 EACH PO Q6H PRN for PAIN, #14 TAB Prov:ROD WHITEHEAD Get 02/09/19 Reported Medications Alprazolam (XANAX) 0.5 Mg Tablet, 1 TAB PO TID PRN for ANXIETY, TAB 02/02/19 Melatonin (MELATONIN) 10 Mg Capsule, 10 MG PO QHS, CAPSULE 02/02/19 Trazodone Hcl (TRAZODONE HCL) 100 Mg Tablet, 100 MG PO QHS, TAB 02/02/19 Colestipol Hcl (COLESTIPOL HCL) 1 Gm Tablet, 1 GM PO 01/07/19 Cholecalciferol (Vitamin D3) (VITAMIN D3) 1,000 Unit Tablet, 1000 UNIT PO, TAB 01/07/19 Aripiprazole (ABILIFY) 5 Mg Tablet, 5 MG PO QDAY, #10 TAB 01/07/19 Apixaban (ELIQUIS) 2.5 Mg Tablet, 2.5 MG PO BID 07/28/18 Lisinopril (LISINOPRIL) 10 Mg Tablet, 10 MG PO BID, TAB 09/29/17 Duloxetine Hcl (CYMBALTA) 60 Mg Capsule.dr, 60 MG PO QDAY, #5 CAP 08/14/17 Sumatriptan Succinate (SUMATRIPTAN SUCCINATE) 50 Mg Tablet, 50 MG PO ONCE PRN for HEADACHE, #5 TAB May repeat dose 1 time after 2 hours if needed. Do not exceed 200mg in 24 hours. 08/14/17 Omeprazole (OMEPRAZOLE) 40 Mg Capsule.dr, 40 MG PO QDAY PRN for REFLUX, CAP 08/14/17 Metoprolol Tartrate (METOPROLOL TARTRATE) 25 Mg Tablet, 25 MG PO BID, TAB 08/14/17 Cyanocobalamin (Vitamin B-12) (Vitamin B12) 2,500 Mcg Tablet, 1 TAB PO QAM 12/14/16 Quetiapine Fumarate (SEROQUEL) 50 Mg Tablet, 50 MG PO QPM 10/19/14 Discontinued Reported Medications Multivitamin (MULTIVITAMINS) 1 Each Tablet, 1 EACH PO DAILY 03/25/16 Diet: Regular Activity: No Heavy Lifting Special Instructions: no lifting more than 15 lbs for 6 wks. ok to shower tomorrow. take stool softener if taking pain meds. f/u dr[facility] 2 wks ([phone]). ROD WHITEHEAD Feb 09, 2019 10:22
[2019-02-09] MEDS ORDERED: HYDROmorphone HCL 2 MG/ML SDV ONE (11:18)
--- NOTE | 2019-02-09 11:25 | EKG ---
FACILITY: [facility] PATIENT NAME: TREVOR MORIN : [id number] MR: [id number] V: [id number] EXAM DATE: ORDERING PHYSICIAN: MARILUZ NIEVES TECHNOLOGIST: FIDEL Test Reason : HIGH HR Blood Pressure : / mmHG Vent. Rate : 115 BPM Atrial Rate : 115 BPM P-R Int : 164 ms QRS Dur : 082 ms QT Int : 340 ms P-R-T Axes : -01 -27 092 degrees QTc Int : 470 ms Sinus tachycardia with Possible premature atrial complexes Nonspecific ST and T wave abnormality Abnormal ECG When compared with ECG of 15-OCT-2018 09:55, aberrant conduction is now present Vent. rate has increased BY 49 BPM Nonspecific T wave abnormality no longer evident in Inferior leads T wave inversion no longer evident in Anterior leads Confirmed by JOE HAHN ([id number]) on 02/09/2019 1:30:42 PM Referred By: MAURY Confirmed By:JOE HAHN
--- NOTE | 2019-02-09 12:09 | Post Operative Progress Note ---
Post Operative Progress Note Date: Feb 09, 2019 Surgeon: dr. neida whitehead #[id number] Tractor Trailer Truck Driver: none Anesthesia: gen, local Pre-Op Diagnosis: ventral incisional hernia Post-Op Diagnosis: same Findings: 1 cm hernia Procedure(s): open hernia repair (no mesh) Complications: none Estimated Blood Loss: minimal Date OP Note Dictated: Feb 09, 2019 Time OP Note Dictated: 12:03 ROD WHITEHEAD Feb 09, 2019 12:09
[2019-02-09 12:31] VITALS: BP 119/67
[2019-02-09 13:00] VITALS: BP 103/58
[2019-02-09 13:35] VITALS: BP 95/54
--- NOTE | 2019-02-09 13:53 | OPERATIVE REPORT 1 ---
EVENT DATE: February 09, 2019 SURGEON: Nirav Piper MD ANESTHESIOLOGIST: Adiel Cota MD ANESTHESIA: General and local. CIGAR PACKER AND SHADER: None. PREOPERATIVE DIAGNOSIS Ventral incisional hernia. POSTOPERATIVE DIAGNOSIS Ventral incisional hernia. PROCEDURE PERFORMED Open ventral hernia repair without mesh. FLUIDS IV crystalloids. ESTIMATED BLOOD LOSS Minimal. SPECIMENS None. COMPLICATIONS None. INDICATIONS This is an 83-year old female with a small hernia at the site of her right upper quadrant incision. The hernia is painful to her. On physical exam, the hernia contents are palpable. She is stable. Risks and benefits of the procedure were explained and consent was signed. DESCRIPTION OF PROCEDURE The patient was taken to the operating room and placed in the supine position. General anesthesia was administered per the Anesthesia team. The patient was prepped and draped in normal sterile fashion. A 3 cm incision was made at the site of the surgical scar and dissection was carried down through the subcutaneous tissue with electrocautery. The hernia sac was identified. Blunt dissection was performed around the hernia sac. Hernia sac was divided with electrocautery and the rest was pushed back through the hernia defect. The hernia defect was approximately 1 cm. The fascia was cleared posteriorly and a running 0 Prolene stitch was used to close this defect to fascia. Fascia layer above this was closed as well with a running 0 Prolene stitch. Subcutaneous and deep dermal 3-0 Vicryl stitches were placed followed by a running 4-0 Monocryl subcuticular stitch to close the skin. Appropriate dressings were applied. Patient tolerated the procedure well. There were no complications. MTDD
[2019-02-09 13:57] VITALS: BP 110/87
[2019-02-09 14:00] VITALS: BP 104/70
== END 2019-02-09 12:30 | disposition home or self-care (01) ==
LOC: OR 00:20
PROVIDERS: ATTEND Surgery
DX: K43.2 Incisional hernia without obstruction or gangrene (principal); R00.0 Tachycardia, unspecified; I10 Essential (primary) hypertension
CPT/HCPCS: 49560; 85025; 93005; A9270; J0360; J1100; J2405; J3010; 82310; 82374; 82435; 82565; 82947; 84132; 84295; 84520; J0690; J2795

== ENCOUNTER → 2019-03-05 | Outpatient (CLI) | payer MEDICARE, OTHER ==
[2018-10-16 10:15] VITALS: BMI 24.0
[~2019-03-05] MED LIST changes: +HYDR-653 PO; +IOPAMIDOL 76% 100 ML INFUS BTL 100 ML ONE
[2019-03-05 16:56] LABS: PLATELET COUNT, AUTOMATED 322 K/uL (150-450)
--- NOTE | 2019-03-05 18:16 | RADIOLOGY IMAGING REPORT ---
FACILITY: [facility] - [place] PATIENT NAME: Meri Velazquez : 1935 MR: [id number] V: [id number] EXAM DATE: ORDERING PHYSICIAN: KATHLEEN JULES TECHNOLOGIST: Location: [facility] Patient: Meri Velazquez : 1935 Visit/Account:[id number] Date of Sevice: 03/05/2019 EXAMINATION: CT abdomen with IV contrast CT pelvis with IV contrast HISTORY: Right lower quadrant pain. TECHNIQUE: Spiral scan was through the abdomen and pelvis during injection of nonionic iodinated in travenous contrast. Sagittal and coronal reformatted images are also submitted. One of the following dose optimization techniques was utilized in the performance of this exam: Autom ated exposure control; adjustment of the mA and/or kV according to the patient's size; or use of an i terative reconstruction technique. Specific details can be referenced in the facility's radiology C T exam operational policy. CONTRAST: 75 mL of IV Isovue-370 COMPARISON: 07/28/2018. FINDINGS: Lower chest: Negative. Liver / biliary: Stable 8.6 x 7.3 x 6.3 cm cyst in the superior right hepatic lobe. Postop cholecyste ctomy with stable intrahepatic and extrahepatic biliary ductal dilatation. Pancreas: Atrophied but otherwise unremarkable. Spleen: Negative. Adrenal glands: Negative. Kidneys: Negative. Pelvic structures: Postop hysterectomy. Otherwise negative. Bowel: Extensive distal colonic diverticulosis with no evidence of acute diverticulitis. The appendix is not confidently identified, however there are no pericecal inflammatory changes to suggest acute appendicitis. Peritoneum / retroperitoneum / mesenteries: Negative. Vessels: Negative. Lymph nodes: Negative. Musculoskeletal / Body wall: Mild bilateral hip osteoarthritis. Partially imaged internal fixation stanley rdware in the proximal right femur. Multilevel degenerative disc disease and facet hypertrophy in the thoracolumbar spine. Grade 1 anterior listhesis of L5 over S1. Stable chronic L2 compression fractur e with approximately 25% loss of height. IMPRESSION: No acute abnormality in the abdomen or pelvis. Results were called to KATHLEEN JULES at 03/05/2019 5:58 PM. Report Dictated By: Pj Guzman MD at 03/05/2019 5:49 PM Report E-Signed By: Pj Guzman MD at 03/05/2019 6:07 PM WSN:[id number]
== END ==
LOC: LAB 16:18
PROVIDERS: ATTEND Nurse Practitioner Family
DX: R10.32 Left lower quadrant pain (principal); R50.9 Fever, unspecified; R35.0 Frequency of micturition
CPT/HCPCS: 36415; 74177; 81001; 85025; Q9967; 82040; 82247; 82310; 82374; 82435; 82565; 82947; 84075; 84132; 84155; 84295; 84450; 84460; 84520

== ENCOUNTER → 2019-03-06 | Outpatient (REF) | payer MEDICARE, OTHER ==
[2018-10-16 10:15] VITALS: BMI 24.0
[~2019-03-06] MED LIST changes: -IOPAMIDOL 76% 100 ML INFUS BTL 100 ML ONE
== END ==
LOC: LAB 13:30
PROVIDERS: ATTEND Physician Assistant
DX: N39.0 Urinary tract infection, site not specified (principal)
CPT/HCPCS: 87088